=== PATIENT | male | born 1970 | race Caucasian/White ===

== ENCOUNTER 2024-08-08 21:32 | Emergency (ER) | payer MEDICARE, MEDICAID, SELFPAY ==
--- NOTE | ~2024-08-08 | XR_ITS ---
CLINICAL HISTORY: pain 1 view chest x-ray Comparison: None Findings: The lungs are clear. Normal size heart. No acute fracture. IMPRESSION: 1. No acute findings. This document has been electronically signed by: Jaylon Stafford MD on 08/09/2024 02:26:59
[2024-08-08 21:35] VITALS: BP 152/100; PULSE 114; O2SAT 99
[2024-08-08 21:41] VITALS: BP 148/106; PULSE 103; RESP 16; TEMP 36.8; O2SAT 98; BMI 21.1
[2024-08-08 22:25] LABS: MANUAL DIFF FLAG NO
[2024-08-08 22:26] LABS: Basophils Absolute Auto 0.1 X10*3/uL (0.0-0.2); Basophils Percent Auto 1.4 % (0-2); Eosinophils Absolute Auto 0.1 X10*3/uL (0.0-0.4); Hematocrit 31.3 % (42.0-52.0); Hemoglobin 10.4 g/dl (14.0-18.0); Imm Gran Abs Auto 0.03 X10*3/uL (0.00-0.03); Imm Gran Pct Auto 0.5 % (0.0-0.4); Lymphocytes Absolute Auto 1.9 X10*3/uL (1.2-4.9); Lymphocytes Percent Auto 34.2 % (20-40); Mean Corpuscular HGB Conc 33.2 g/dl (31.0-36.0); Mean Corpuscular Hemoglobin 29.3 pg (27.0-33.0); Mean Corpuscular Volume 88.2 fL (80.0-98.0); Mean Platelet Volume 9.4 fL (9.4-12.4); Monocytes Absolute Auto 0.7 X10*3/uL (0.1-1.2); Monocytes Percent Auto 12.5 % (2-11); Neutrophils Absolute Auto 2.8 x10*3/uL (2.0-8.3); Neutrophils Percent Auto 49.4 % (45-73); Platelet Count 226 X10*3/uL (160-400); Red Blood Count 3.55 X10*6/uL (4.60-5.80); White Blood Count 5.6 X10*3/uL (4.8-10.8)
[2024-08-08 22:33] LABS: Prothrombin Time 11.1 SEC (10.9-12.4)
[2024-08-08 22:57] LABS: Alanine Aminotransferase 50 U/L (0-40); Alkaline Phosphatase 107 U/L (39-117); Anion Gap 19 (12-20); Aspartate Amino Transferase 121 U/L (5-37); Bilirubin Total 0.2 mg/dL (0.0-1.0); Blood Urea Nitrogen 15 mg/dL (9-16); Calcium 8.5 mg/dL (8.4-10.2); Carbon Dioxide 20 mmol/L (22-29); Chloride 109 mmol/L (96-108); Creatinine Clr Calc Pharmacy 44.2; Estimated Glomerular Filt Rate 43; Ethanol 437 mg/dL; Glucose Random 123 mg/dL (60-115); Magnesium 1.7 mg/dL (1.6-2.6); Potassium 4.4 mmol/L (3.3-5.1); Sodium 144 mmol/L (135-145); Total Protein 7.6 g/dL (6.5-8.0)
[2024-08-08 23:24] VITALS: BP 144/94; PULSE 129; RESP 18; TEMP 37.4; O2SAT 97
--- NOTE | 2024-08-08 23:26 | MHC.EDTECH ---
patient placed on quality assurance monitor chassis patient currently vomiting
--- NOTE | 2024-08-08 23:46 | ECG_ITS ---
Test Reason : PAIN Blood Pressure : / mmHG Vent. Rate : 108 BPM Atrial Rate : 108 BPM P-R Int : 172 ms QRS Dur : 084 ms QT Int : 346 ms P-R-T Axes : 053 043 061 degrees QTc Int : 463 ms Sinus tachycardia Otherwise normal ECG No previous ECGs available Referred By: Amy Meneses Electronically Signed By:SIMEON LO MD
[2024-08-09] MEDS: ondansetron HCL 4 MG/2 ML VIAL IVPUSH (00:12)
[2024-08-09] MEDS: 0.9 % Sodium Chloride 1,000 ML 999 ML IV (00:12)
[2024-08-09 00:14] LABS: Troponin-I High Sensitivity 3.8 ng/L (<3.5-35.0)
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
[2024-08-09 02:14] VITALS: BP 148/98; PULSE 106; RESP 12; TEMP 37; O2SAT 100
[2024-08-09] MEDS: Acetaminophen 325 MG TABLET 975 MG PO (02:35)
[2024-08-09 02:38] LABS: Troponin-I High Sensitivity 5.3 ng/L (<3.5-35.0)
[2024-08-09 03:39] VITALS: BP 133/99; PULSE 99; RESP 17; TEMP 37.2; O2SAT 98
[2024-08-09 03:44] VITALS: BP 133/99; PULSE 99; RESP 17; TEMP 37.2; O2SAT 98
== END 2024-08-09 03:53 | disposition home or self-care (01) ==
PROVIDERS: Physician Assistant Medical; Emergency Provider Emergency Medicine Emergency Medical Services
DX: S29.9XXA Unspecified injury of thorax, initial encounter (principal); R10.2 Pelvic and perineal pain; F10.129 Alcohol abuse with intoxication, unspecified; Y90.8 Blood alcohol level of 240 mg/100 ml or more; R07.89 Other chest pain; F41.9 Anxiety disorder, unspecified; R00.0 Tachycardia, unspecified; Y04.2XXA Assault by strike against or bumped into by another person, initial encounter; Y93.89 Activity, other specified; Y92.89 Other specified places as the place of occurrence of the external cause; Y99.8 Other external cause status; Z51.81 Encounter for therapeutic drug level monitoring; Z79.899 Other long term (current) drug therapy
CPT/HCPCS: 36415; 71045; 80053; 80307; 82693; 83735; 84484; 85025; 85610; 93005; 96361; 96374; 99284; J2405

== ENCOUNTER → 2024-08-08 23:46 | Outpatient (BNV) | payer MEDICARE, MEDICAID, SELFPAY | PROVIDERS: Emergency Provider Emergency Medicine Emergency Medical Services; Visit Provider Internal Medicine Cardiovascular Disease | DX: R94.31 Abnormal electrocardiogram [ECG] [EKG] (principal) | CPT/HCPCS: 93010 ==

== ENCOUNTER → 2024-08-09 01:57 | Outpatient (BNV) | payer MEDICARE, MEDICAID, SELFPAY | PROVIDERS: Emergency Provider Emergency Medicine Emergency Medical Services; Visit Provider Radiology Diagnostic Radiology | DX: R07.9 Chest pain, unspecified (principal) | CPT/HCPCS: 71045 ==

== ENCOUNTER 2025-02-20 01:07 | Inpatient (IN) | payer MEDICARE, MEDICAID, SELFPAY ==
[2025-02-20] VITALS (10 sets, daily range): BP systolic 96–173; BP diastolic 69–101; PULSE 72–118; RESP 15–18; TEMP 36.2–37.1; O2SAT 94–100; BMI 20.4; BMI 20.9
--- NOTE | 2025-02-20 | ECG_ITS ---
Test Reason : FALL Blood Pressure : */* mmHG Vent. Rate : 60 BPM Atrial Rate : 60 BPM P-R Int : 172 ms QRS Dur : 90 ms QT Int : 460 ms P-R-T Axes : 56 40 46 degrees QTcB Int : 460 ms Normal sinus rhythm Normal ECG When compared with ECG of 09-Aug-2024 00:12, Vent. rate has decreased by 48 bpm Referred By: Generic ED Physician Electronically Signed By: IVONNE HAILE
--- NOTE | ~2025-02-20 | CT_ITS ---
CLINICAL HISTORY: dyspnea, hx DVT CT angiography chest with contrast. 3D Postprocessing. Comparison: None provided Findings: The heart is normal size. RV/LV ratio is normal. The thoracic aorta is normal caliber. No thyroid lesion. No significant mediastinal adenopathy. Suspect a tiny nonocclusive filling defect within the right lower lobe, axial images 100 -102/163 (series 7) Moderate centrilobular emphysema with airway thickening and regions of scarring and/or atelectasis. No effusion. No pneumothorax. No acute osseous finding. Visualized upper abdomen is unremarkable. Impression: There is a tiny nonocclusive filling defect within the right lower lobe consistent with a small pulmonary embolism. Chronicity of this indeterminate. No heart strain. Centrilobular emphysema with airway thickening and regions of scarring and/or atelectasis. This document has been electronically signed by: Dwayne Mercer MD on 02/20/2025 07:15:54
--- NOTE | ~2025-02-20 | US_ITS ---
EXAMINATION: US TRIPLEX LOWER EXTREMITY, RIGHT CLINICAL INFORMATION: Pain, right lower extremity. COMPARISON: None available. TECHNIQUE: Color-flow triplex imaging with spectral analysis and compression Doppler were performed on the right lower extremity. FINDINGS: Respiratory variation, normal compression and augmented flow are present throughout the interrogated right common femoral vein, superficial femoral vein, profunda femoral vein, popliteal vein and midcalf peroneal and posterior tibial venous segments . There is no Ferrell's cyst. US/US venous duplex LE RT IMPRESSION: No acute deep venous thrombosis interrogated veins, right lower extremity. Negative for DVT. Electronically signed by: Nishant Philip MD 02/20/2025 09:54 AM EDT
--- NOTE | ~2025-02-20 | CT_ITS ---
CLINICAL HISTORY: fall on eliquis LOC CT head without contrast Comparison: None Findings: No evidence of acute territorial infarct. Moderate diffuse volume loss is noted. No hydrocephalus. No hemorrhage, mass effect, mass lesion or midline shift. No abnormal extra-axial fluid. No calvarial fracture. Paranasal sinuses and mastoid air cells are clear. Impression: No acute intracranial process. Moderate diffuse volume loss, greater than expected for age. This document has been electronically signed by: Dwayne Mercer MD on 02/20/2025 07:07:05
[2025-02-20 02:02] LABS: Hematocrit 27.4 % (42.0-52.0); Hemoglobin 8.9 g/dl (14.0-18.0); Imm Gran Abs Auto 0.01 X10*3/uL (0.00-0.03); Imm Gran Pct Auto 0.2 % (0.0-0.4); Lymphocytes Absolute Auto 2.9 X10*3/uL (1.2-4.9); MANUAL DIFF FLAG NO; Mean Corpuscular HGB Conc 32.5 g/dl (31.0-36.0); Mean Corpuscular Hemoglobin 31.0 pg (27.0-33.0); Mean Corpuscular Volume 95.5 fL (80.0-98.0); NRBC Abs Auto 0.000 X10*3/uL (0.0-0.012); NRBC Pct Auto 0.0 /100WBC (0.0-0.2); Platelet Count 568 X10*3/uL (160-400); Red Blood Count 2.87 X10*6/uL (4.60-5.80); White Blood Count 6.0 X10*3/uL (4.8-10.8)
[2025-02-20 03:26] LABS: Alanine Aminotransferase 41 U/L (0-40); Albumin Level 3.3 g/dL (3.5-5.0); Alkaline Phosphatase 94 U/L (39-117); Anion Gap 17 (12-20); Aspartate Amino Transferase 106 U/L (5-37); Blood Urea Nitrogen 11 mg/dL (9-16); Calcium 7.9 mg/dL (8.4-10.2); Carbon Dioxide 22 mmol/L (22-29); Chloride 111 mmol/L (96-108); Creatinine Clr Calc Pharmacy 53.7; Estimated Glomerular Filt Rate 57; Magnesium 1.6 mg/dL (1.6-2.6); Potassium 3.9 mmol/L (3.3-5.1); Sodium 146 mmol/L (135-145); Total Protein 6.4 g/dL (6.5-8.0)
[2025-02-20 03:42] LABS: Troponin-I High Sensitivity < 2.7 ng/L (<3.5-35.0)
[2025-02-20 05:59] LABS: INTERNATIONAL NORM RATIO 1.4 (0.9-1.1); Prothrombin Time 16.5 SEC (10.9-12.4)
[2025-02-20] MEDS: iohexoL 350 MG/ML 100 ML INFUS..BTL 65 ML IV (06:09)
[2025-02-20] MEDS: Magnesium Sulfate/H2O 2 GM/50 ML PIGGYBACK IV (06:16)
[2025-02-20] MEDS: Lactated Ringers 1,000 ML 999 ML IV (06:16)
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
--- NOTE | 2025-02-20 07:29 | PC.NURSE ---
Nichole Mtz ([facility]) - [phone]
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
--- NOTE | 2025-02-20 08:56 | PM.IMHP ---
History of Present Illness Date of Service: 02/20/25 Chief Complaint: fall/syncope The patient is a 54 yo M with alcohol abuse and dependence, prior VTE on Eliquis who presents to the ED after he was found down on the ground at home by his daughter. The history is obtained from the ED physician. 54-year-old alcoholic with history of DVT on Eliquis coming in with dizziness and a syncopal episode that occurred at home in the bathroom. Was found down on the ground by his daughter. Found to have a right lower lobe pulmonary embolism on CTA without evidence of heart strain. Pt is seen and examined around 830 AM. He is asleep and not participatory in the interview. He is oriented to self and location but does not answer other questions. Review of Systems Review of Systems: unable to review ROS [facility] Social History Alcohol intake: current Alcohol intake frequency: 3 or more drinks per day Alcohol type: hard liquor Smoked in Last 30 Days: Yes Use of substances other than those prescribed or required for medical reasons: Yes Substance Use Type: Marijuana Advance Directives: No Advance Directives Information Provided: Yes Meds Allergies Allergy/AdvReac Type Severity Reaction Status Date / Time No Known Allergies Allergy Verified 02/20/25 01:32 Active Medications: Current Medications Acetaminophen (Acetaminophen 325 Mg Tablet) 650 mg PO Q6H PRN PRN Reason: Pain, Mild 1-3,fever,headache Calcium Carbonate (Calcium Carbonate 750 Mg Tab.Chew) 750 mg PO Q4H PRN PRN Reason: Heartburn Lactated Ringer's (Lr) 1,000 mls @ 100 mls/hr IVCONT .Q10H [facility] Stop: 02/21/25 04:44 Magnesium Hydroxide (Milk Of Magnesia 30 Ml Oral.Susp) 30 ml PO DAILY PRN PRN Reason: Constipation Melatonin (Melatonin 3 Mg Tablet) 6 mg PO BEDTIME PRN PRN Reason: Insomnia Sodium Chloride (0.9 % Sodium Chloride Flush 3 Ml Syringe) 3 ml IVFLUSH QSHIFT [facility] Home Medications ?Medication ?Instructions ?Recorded ?Confirmed ?Last Taken ?Type acetaminophen 500 mg tablet 1,000 mg PO TID PRN moderate pain 02/20/25 Unknown History apixaban 5 mg tablet (Eliquis) 5 mg PO BID 02/20/25 Unknown History carvedilol 6.25 mg tablet 6.25 mg PO BID 02/20/25 Unknown History gabapentin 600 mg tablet 600 mg PO TID 02/20/25 Unknown History losartan 25 mg tablet 25 mg PO DAILY 02/20/25 Unknown History oxycodone 5 mg tablet 5 mg PO TID PRN severe pain 02/20/25 Unknown History trazodone 100 mg tablet 100 mg PO BEDTIME 02/20/25 Unknown History venlafaxine 75 mg capsule,extended 75 mg PO DAILY 02/20/25 Unknown History release 24 hr Physical Exam Vital Signs and Narrative: Vital Signs: Last Vital Signs Temp 97.5 F 02/20/25 07:40 Pulse 82 02/20/25 07:40 Resp 15 02/20/25 07:40 BP 114/83 02/20/25 07:40 Pulse Ox 98 02/20/25 07:40 O2 Del Method Room Air 02/20/25 07:40 BMI result Body Mass Index 20.4 Const: Other: Constitutional - sleeping, answering questions minimally - knows name and that hes in the hospital Eyes - EOMI Cardiovascular - S1S2, RRR, No edema Respiratory - Normal lung expansion, Normal respiratory effort, No respiratory distress, CTA bilaterally Gastrointestinal - NT / ND; +BS; No rebound or guarding - No CVA tenderness Extremities - RLE cast Musculoskeletal - Normal inspection; RLE cast Skin - Warm/Dry Neurological - unable to fully assess but moving all 4 limbs and oriented to self/location Psychological - unable to assess Results Labs 02/20/25 01:56 02/20/25 02:40 Labs: Laboratory Results - last 24 hr 02/20/25 02/20/25 02/20/25 01:56 02:40 05:38 MCV 95.5 MCH 31.0 MCHC 32.5 RDW 19.7 H Plt Count 568 H D MPV 8.8 L Immature Gran % (Auto) 0.2 Neut % (Auto) 38.7 L Lymph % (Auto) 48.2 H [place] % (Auto) 6.6 Eos % (Auto) 3.8 Baso % (Auto) 2.5 H Lymph # (Auto) 2.9 [place] # (Auto) 0.4 Eos # (Auto) 0.2 Baso # (Auto) 0.2 Abs Immat Gran (auto) 0.01 Absolute Neuts (auto) 2.3 Absolute Nucleated RBC 0.000 Nucleated RBC % (auto) 0.0 PT 16.5 H D INR 1.4 H Anion Gap 17 Estim Creat Clear Calc 53.7 Estimated GFR 57 Random Glucose 95 Calcium 7.9 L D Magnesium 1.6 Total Bilirubin 0.2 AST 106 H ALT 41 H Alkaline Phosphatase 94 Total Protein 6.4 L Albumin 3.3 L Ethyl Alcohol 249 Assessment and Plan (1) Alcohol use disorder: Status: Acute (2) Alcohol intoxication: Status: Acute (3) Pulmonary embolism: Status: Acute Plan 54 yo M with alcohol abuse and dependence, prior PE on eliquis who presents with dizziness/syncope, found on the ground by family. Pt unable / unwilling to provide history currently. Work up in ED showing tiny non-occulusive small PE RLL, alcohol intoxication and withdrawal. 1. Syncope/fall/dizziness possibly secondary to EtOH intox unlikely 2/2 to PE monitor on tele, hydrate, check CPK ambulate once more able/willing 2. RLL PE unclear chronicity on imaging. Unable to confirm history with pt. Attempted to call family -- went unanswered. Will give lovenox 1mg/kg for the time being 3. Alcohol abuse and dependence Presented with +blood alcohol level; scoring 10 on CIWA Given ativan -- pt now resting comfortably monitor with CIWA and likely start phenobarb (currently pt sedated, so will hold) 4. HyperNa mild, ivf recheck labs tomorrow Presumed full code DVT pptx - Lovenox Quality Stroke Does the patient have a stroke diagnosis?: No VTE Prior VTE?: No VTE Risk Level:: Medical - moderate - high VTE Device Contraindication: N/A - Device Ordered VTE Drug Contraindication: N/A - Med Ordered
--- NOTE | 2025-02-20 09:06 | PC.NURSE ---
ultrasound being completed at this time. patient remains sleepy s/p medication administration by previous RN. no apparent respiratory distress. on RA w/o difficulty. no sob/wob noted. respirations even/unlabored. plan of care ongoing.
[2025-02-20] MEDS: Lactated Ringers 1,000 ML 100 ML IVCONT ×2 (09:25→19:34)
--- NOTE | 2025-02-20 14:36 | PHA.MEDREC ---
Addendum entered by Geeta Knight linda 02/20/25 15:07: Med rec was updated. Atorvastatin has not filled since 08/06/25, pt states he is no longer taking. Pt has no claims on albuterol, and pt states he is not on, this was removed from the med rec. Naltrexone was also removed by the med rec as pt states he is not on. Addendum entered by Clovis Lopez 02/20/25 14:55: Spoke with pt, who was very pleasant and was able to confirm what he is taking for at home medications at this time. Original Note: Pharmacy Consult ? Medication Reconciliation Pharmacy has completed the medication reconciliation. Spoke with daughter, Nichole, to confirm medications. She states she helps manage her father's medication.
--- NOTE | 2025-02-20 15:29 | MHC.CM.PN ---
CM received a phone call re: pt. care from Sari Larkin, , she is a medical SW from [facility], who has been providing services to this pt. in his home. She informed CM that she was working on helping pt. to find a more supportive living environment, and that pt. was in agreement to moving, and they thought that he might require LTC in a SNF. She said that he has had multiple hosp. stays, and that the home is a second floor apt. with his dtr and her family. She will fax HCP here. CM will follow up with pt. and HCP and assist in making DCP.
[2025-02-20] MEDS: PHENobarbitaL sodium 130 MG/ML IM ONCE 194 MG IM (16:53)
[2025-02-20] MEDS: 0.9 % Sodium Chloride Flush 3 ML SYRINGE IVFLUSH ×2 (16:53→23:39)
[2025-02-20] MEDS: PHENobarbitaL sodium 130 MG/ML VIAL IM Q3Hx2 145 MG IM ×2 (20:03→23:28)
[2025-02-21 03:53] VITALS: BP 164/98; PULSE 76; RESP 18; TEMP 37.1; O2SAT 100
[2025-02-21 06:33] LABS: Hematocrit 25.9 % (42.0-52.0); Hemoglobin 8.4 g/dl (14.0-18.0); Mean Corpuscular HGB Conc 32.4 g/dl (31.0-36.0); Mean Corpuscular Hemoglobin 30.4 pg (27.0-33.0); Mean Corpuscular Volume 93.8 fL (80.0-98.0); NRBC Abs Auto 0.000 X10*3/uL (0.0-0.012); NRBC Pct Auto 0.0 /100WBC (0.0-0.2); Platelet Count 452 X10*3/uL (160-400); Red Blood Count 2.76 X10*6/uL (4.60-5.80); White Blood Count 7.1 X10*3/uL (4.8-10.8)
--- NOTE | 2025-02-21 06:41 | PM.EVENT ---
Event Note Date of Service: 02/21/25 Event Note: Nurse reported bright red blood in stools this a.m.. Patient complaining of dizziness when ambulating. Likely orthostatic presyncope. Will order crystalloid resuscitation. Will also order IV Protonix and keep patient NPO. Consulting Gastroenterology. Hold aspirin and Eliquis Time Spent With Patient Time: Total time managing care of this patient today ____ minutes.
[2025-02-21 06:46] LABS: Alanine Aminotransferase 34 U/L (0-40); Albumin Level 2.9 g/dL (3.5-5.0); Alkaline Phosphatase 90 U/L (39-117); Anion Gap 12 (12-20); Aspartate Amino Transferase 76 U/L (5-37); Blood Urea Nitrogen 8 mg/dL (9-16); Calcium 8.0 mg/dL (8.4-10.2); Carbon Dioxide 23 mmol/L (22-29); Chloride 109 mmol/L (96-108); Creatinine Clr Calc Pharmacy 73.7; Estimated Glomerular Filt Rate > 60; Potassium 4.1 mmol/L (3.3-5.1); Sodium 140 mmol/L (135-145); Total Protein 5.8 g/dL (6.5-8.0)
[2025-02-21] MEDS: Lactated Ringers 1,000 ML 999 ML IV (07:26)
[2025-02-21 08:00] VITALS: BP 150/88; PULSE 83; RESP 14; TEMP 36.8; O2SAT 100
[2025-02-21] MEDS: Venlafaxine HCl ER 75 MG CAP.ER.24H PO (08:57)
[2025-02-21] MEDS: 0.9 % Sodium Chloride Flush 3 ML SYRINGE IVFLUSH ×2 (08:59→16:08)
--- NOTE | 2025-02-21 10:55 | HO.PM.IMPN ---
Subjective Subjective Date of Service: 02/21/25 Interval History: no further bleed Physical Exam Vital Signs: Vital Signs: Last Vital Signs Temp 98.2 F 02/21/25 08:00 Pulse 83 02/21/25 08:00 Resp 14 02/21/25 08:00 BP 150/88 H 02/21/25 08:00 Pulse Ox 100 02/21/25 08:00 O2 Del Method Room Air 02/21/25 08:00 BMI result Body Mass Index 20.9 General: AO X 3, no acute distress Resp: CTA bilateral, no accessory muscles used CVS: S1,S2,RRR GI: soft, non tender, non distended Neuro: motor grossly intact, alert Psych: appropriate affect, appropriate insight Objective Data Active Medications Acetaminophen (Acetaminophen 325 Mg Tablet) 650 mg PO Q6H PRN PRN Reason: Pain, Mild 1-3,fever,headache Last Admin: 02/21/25 05:40 Dose: 650 mg Documented By: ZNAA Calcium Carbonate (Calcium Carbonate 750 Mg Tab.Chew) 750 mg PO Q4H PRN PRN Reason: Heartburn Carvedilol (Carvedilol 6.25 Mg Tablet) 6.25 mg PO BID [facility]; Protocol Last Admin: 02/21/25 08:57 Dose: 6.25 mg Documented By: MYRNA Cyanocobalamin (Cyanocobalamin (Vitamin B-12) 1,000 Mcg Tablet) 1,000 mcg PO DAILY [facility] Last Admin: 02/21/25 08:59 Dose: Not Given Documented By: MYRNA Non-Admin Reason: NPO Folic Acid (Folic Acid 1 Mg Tablet) 1 mg PO DAILY [facility] Last Admin: 02/21/25 09:00 Dose: Not Given Documented By: MYRNA Non-Admin Reason: NPO Gabapentin (Gabapentin 600 Mg Tablet) 600 mg PO TID [facility] Last Admin: 02/21/25 08:56 Dose: 600 mg Documented By: MYRNA Losartan Potassium (Losartan Potassium 25 Mg Tablet) 25 mg PO DAILY [facility]; Protocol Last Admin: 02/21/25 08:56 Dose: 25 mg Documented By: MYRNA Magnesium Hydroxide (Milk Of Magnesia 30 Ml Oral.Susp) 30 ml PO DAILY PRN PRN Reason: Constipation Melatonin (Melatonin 3 Mg Tablet) 6 mg PO BEDTIME PRN PRN Reason: Insomnia Pharmacy Consult (Consult Rx Etoh Phenob Im/Po) 1 each MISCELLANE ONCE PRN; Protocol PRN Reason: Consult order Phenobarbital (Phenobarbital 15 Mg Tablet) 45 mg PO BID [facility] Stop: 02/22/25 21:01 Last Admin: 02/21/25 08:57 Dose: 45 mg Documented By: MYRNA Phenobarbital (Phenobarbital 30 Mg Tablet) 30 mg PO BID [facility] Stop: 02/24/25 21:01 Phenobarbital (Phenobarbital 15 Mg Tablet) 15 mg PO DAILY [facility] Stop: 02/26/25 09:01 Pyridoxine HCl (Pyridoxine Hcl (Vitamin B6) 50 Mg Tablet) 50 mg PO DAILY [facility] Last Admin: 02/21/25 09:00 Dose: Not Given Documented By: MYRNA Non-Admin Reason: NPO Sodium Chloride (0.9 % Sodium Chloride Flush 3 Ml Syringe) 3 ml IVFLUSH QSHIFT [facility] Last Admin: 02/21/25 08:59 Dose: 3 ml Documented By: MYRNA Thiamine HCl (Thiamine Hcl 100 Mg Tablet) 100 mg PO BID [facility] Last Admin: 02/21/25 09:00 Dose: Not Given Documented By: MYRNA Non-Admin Reason: NPO Trazodone HCl (Trazodone Hcl 100 Mg Tablet) 100 mg PO BEDTIME [facility] Last Admin: 02/20/25 19:46 Dose: 100 mg Documented By: ZANA Venlafaxine HCl (Venlafaxine Hcl Er 75 Mg Cap.Er.24h) 75 mg PO DAILY [facility] Last Admin: 02/21/25 08:57 Dose: 75 mg Documented By: MYRNA Labs 02/21/25 06:22 02/21/25 06:22 Labs: Laboratory Results - last 24 hr 02/21/25 06:22 MCV 93.8 MCH 30.4 MCHC 32.4 RDW 19.5 H Plt Count 452 H MPV 8.9 L Absolute Nucleated RBC 0.000 Nucleated RBC % (auto) 0.0 Anion Gap 12 Estim Creat Clear Calc 73.7 Estimated GFR > 60 Random Glucose 93 Calcium 8.0 L Total Bilirubin 0.4 AST 76 H ALT 34 Alkaline Phosphatase 90 Total Protein 5.8 L Albumin 2.9 L Assessment and Plan (1) Alcohol use disorder: Status: Acute Plan 54M PMH etoh dependence, vte on eliquis, prsented with fall, found to be in withdrawal, and new small PE, now complicated by BRBPR Syncope due to alcohol dependence with withdrawal Continue phenobarb, CIWA Right lower lobe pulmonary embolism, recurrent Holding anticoagulation due to GI bleed Bright red blood per rectum Hemoglobin stable, follow up GI, holding Eliquis Mild acute hypernatremia Resolved DVT prophylaxis-mechanical due to bright red blood per rectum Full code reason for continued hospitalization:monitor bleed Quality Stroke Does the patient have a stroke diagnosis?: No VTE Prior VTE?: No VTE Risk Level:: Medical - moderate - high VTE Device Contraindication: N/A - Device Ordered VTE Drug Contraindication: N/A - Med Ordered
[2025-02-21] MEDS: oxyCODONE HCl Immed Release 5 MG TABLET PO ×2 (11:31→17:52)
[2025-02-21 11:36] VITALS: BP 144/92; PULSE 82; RESP 18; TEMP 36.6; O2SAT 100
--- NOTE | 2025-02-21 11:39 | MHC.CM.PN ---
IMM 02/21/25, Pt. lives with his dtr and her young children, he is active with home care. PCP is Amarilis Javier MD in [place]. For DME, he has a walker and a cane. Pt. said he has been falling a lot, and then when he takes a shower, he often becomes dizzy. His understanding of DCP is STR and maybe stay LTC in SNF. CM to follow for DC needs.
--- NOTE | 2025-02-21 12:56 | P.CNGI_ITS ---
History of Present Illness Data of Consult Service Date: 02/21/25 Primary Care Provider: Unknown Physician HPI Reason for consult: rectal bleeding 54 yo M with alcohol abuse and dependence, prior VTE on Eliquis with questionable compliance, who I am seeing for assessment for rectal bleeding. Patient admitted after being found down at home by family. He thinks he may have had a alcohol related withdrawal seizure as he was incontinent and has had this before. he has noted on and off rectal bleeding including black colored stools. he denies nausea and vomiting. he has been drinking whiskey most days. denies taking nsaids. Overnight he had fresh rectal bleeding and HGB went from 9--. 8.4 g/dl, --had been 10 g/dl last Jul 2024. Review of Systems 2 Review of Systems: Constitutional : No Weight loss, No Fever, No Chills ENT/Mouth : No sore throat, No Rhinorrhea Eyes: No Swelling, No Redness Cardiovascular : No Chest Pain, No SOB, No Edema Respiratory : No Cough, No Sputum, No Wheezing Gastrointestinal : see HPI Genitourinary : NO Dysuria, No Urinary Frequency, No Hematuria, No Urgency Musculoskeletal : no joint pain, No Myalgias, No Joint Swelling Skin : No Skin Lesions, No rash Neuro : No Weakness, No Numbness, No Dizziness, No Headache Psych : No Anxiety/Panic, No Depression Heme/Lymph: No Bruising, No Lymphadenopathy Endocrine : No Polyuria, No Polydipsia All other systems reviewed and are negative. [facility] Past Medical History Medical History (Updated 02/22/25 @ 10:43 by Madeleine Kumari MD) Atherosclerotic cardiovascular disease Family History Pertinent family history: no Fh of CRC, ulcers Social History Social History Household Members: Family Housing: House Do you presently have visiting nurse or other home services: Yes Alcohol intake: current Alcohol intake frequency: 3 or more drinks per day Alcohol type: hard liquor Patient Tobacco Use Status: Current someday Tobacco user Tobacco use type: Cigarette Years Smoked: 40 years Second Hand Smoke Exposure: No Substance Use Type: Marijuana service: Yes Meds Allergies Allergy/AdvReac Type Severity Reaction Status Date / Time No Known Allergies Allergy Verified 02/20/25 01:32 Active Medications: Current Medications Acetaminophen (Acetaminophen 325 Mg Tablet) 650 mg PO Q6H PRN PRN Reason: Pain, Mild 1-3,fever,headache Last Admin: 02/21/25 05:40 Dose: 650 mg Calcium Carbonate (Calcium Carbonate 750 Mg Tab.Chew) 750 mg PO Q4H PRN PRN Reason: Heartburn Carvedilol (Carvedilol 6.25 Mg Tablet) 6.25 mg PO BID [facility]; Protocol Last Admin: 02/21/25 08:57 Dose: 6.25 mg Cyanocobalamin (Cyanocobalamin (Vitamin B-12) 1,000 Mcg Tablet) 1,000 mcg PO DAILY [facility] Last Admin: 02/21/25 08:59 Dose: Not Given Folic Acid (Folic Acid 1 Mg Tablet) 1 mg PO DAILY [facility] Last Admin: 02/21/25 09:00 Dose: Not Given Gabapentin (Gabapentin 600 Mg Tablet) 600 mg PO TID [facility] Last Admin: 02/21/25 08:56 Dose: 600 mg Losartan Potassium (Losartan Potassium 25 Mg Tablet) 25 mg PO DAILY [facility]; Protocol Last Admin: 02/21/25 08:56 Dose: 25 mg Magnesium Hydroxide (Milk Of Magnesia 30 Ml Oral.Susp) 30 ml PO DAILY PRN PRN Reason: Constipation Melatonin (Melatonin 3 Mg Tablet) 6 mg PO BEDTIME PRN PRN Reason: Insomnia Pharmacy Consult (Consult Rx Etoh Phenob Im/Po) 1 each MISCELLANE ONCE PRN; Protocol PRN Reason: Consult order Phenobarbital (Phenobarbital 15 Mg Tablet) 45 mg PO BID [facility] Stop: 02/22/25 21:01 Last Admin: 02/21/25 08:57 Dose: 45 mg Phenobarbital (Phenobarbital 30 Mg Tablet) 30 mg PO BID [facility] Stop: 02/24/25 21:01 Phenobarbital (Phenobarbital 15 Mg Tablet) 15 mg PO DAILY [facility] Stop: 02/26/25 09:01 Pyridoxine HCl (Pyridoxine Hcl (Vitamin B6) 50 Mg Tablet) 50 mg PO DAILY [facility] Last Admin: 02/21/25 09:00 Dose: Not Given Sodium Chloride (0.9 % Sodium Chloride Flush 3 Ml Syringe) 3 ml IVFLUSH QSHIFT [facility] Last Admin: 02/21/25 08:59 Dose: 3 ml Thiamine HCl (Thiamine Hcl 100 Mg Tablet) 100 mg PO BID [facility] Last Admin: 02/21/25 09:00 Dose: Not Given Trazodone HCl (Trazodone Hcl 100 Mg Tablet) 100 mg PO BEDTIME [facility] Last Admin: 02/20/25 19:46 Dose: 100 mg Venlafaxine HCl (Venlafaxine Hcl Er 75 Mg Cap.Er.24h) 75 mg PO DAILY [facility] Last Admin: 02/21/25 08:57 Dose: 75 mg Home Medications ?Medication ?Instructions ?Recorded ?Confirmed ?Last Taken ?Type acetaminophen 500 mg tablet 1,000 mg PO TID PRN modera te pain 02/20/25 02/20/25 Unknown History apixaban 5 mg tablet (Eliquis) 5 mg PO BID 02/20/2502/19/25 History aspirin 81 mg tablet,delayed 81 mg PO DAILY 02/20/25 0 02/20/25 02/19/25 History release carvedilol 6.25 mg tablet 6.25 mg PO BID 02/20/2502/0602/19/25 History cyanocobalamin (vitamin B-12) 1,000 mcg PO DAILY 02/2002/20/25 Unknown History 1,000 mcg tablet folic acid 1 mg tablet 1 mg PO DAILY 02/20/2502/2002/19/25 History gabapentin 600 mg tablet 600 mg PO TID 02/20/2502/2002/19/25 History losartan 25 mg tablet 25 mg PO DAILY 02/20/2502/0602/19/25 History pyridoxine (vitamin B6) 50 mg 50 mg PO DAILY 02/20/25 02/20/25 Unknown History tablet thiamine HCl (vitamin B1) 100 mg 100 mg PO BID 5 02/20/25 02/19/25 History tablet trazodone 100 mg tablet 100 mg PO BEDTIME 02/20/25 0 02/20/25 02/19/25 History venlafaxine 75 mg capsule,extended 75 mg PO DAILY 02/0602/20/25 02/19/25 History release 24 hr Physical Exam 2 Vital Signs: Vital Signs: Last Vital Signs Temp 97.8 F 02/21/25 11:36 Pulse 82 02/21/25 11:36 Resp 18 02/21/25 11:36 BP 144/92 H 02/21/25 11:36 Pulse Ox 100 02/21/25 11:36 O2 Del Method Room Air 02/21/25 11:36 BMI result Body Mass Index 20.9 EXAM: GENERAL: The patient is well developed and nontoxic. VITAL SIGNS:see workflow HEENT: Nonicteric sclerae, PERRLA, EOMI. Oropharynx clear. Moist mucous membranes. Conjunctivae appear well perfused. No thyroid mass. CHEST: Chest wall is nontender. HEART: Regular rate and rhythm without murmurs. LUNGS: Clear to auscultation bilaterally. ABDOMEN: Soft, positive bowel sounds, nontender, no organomegaly.no flank tenderness SKIN: No rash, no excessive bruising, petechiae, or purpura. NEUROLOGIC: Cranial nerves II-XII intact without motor/sensory deficit. Psych: normal affect Results Labs 02/22/25 06:57 02/22/25 06:57 Labs: Short CBC 02/21/25 Range/Units 06:22 WBC 7.1 (4.8-10.8) X10*3/uL Hgb 8.4 L (14.0-18.0) g/dl Hct 25.9 L (42.0-52.0) % Plt Count 452 H (160-400) X10*3/uL BMP 02/21/25 06:22 Sodium 140 Potassium 4.1 Chloride 109 H Carbon Dioxide 23 BUN 8 L Creatinine 0.98 Calcium 8.0 L Liver Function 02/21/25 Range/Units 06:22 Total Bilirubin 0.4 (0.0-1.0) mg/dL AST 76 H (5-37) U/L ALT 34 (0-40) U/L Alkaline Phosphatase 90 (39-117) U/L Albumin 2.9 L (3.5-5.0) g/dL Assessment and Plan (1) Acute GI bleeding: Status: Acute Plan 1/ Acute blood loss anemia, mayeb due to PUD with rpaid transit, right sided bleeding, hemorrhoid, or mass PLAN: /1 - cont with PPI 2/ HGB for around 8-9 g/dl 3/ EGD and colo for further assesssment Procedures Date of Service Date of Service: 02/22/25
--- NOTE | 2025-02-21 13:07 | HO.ANESPROP2 ---
HPI - Anesthesia Eval Consult details Narrative: 54 yr old male for upper endoscopy, colonoscopy. Acute ETOH intoxication: 10-15 Fireball whiskey shots daily, ?on naltrexone. Recent chronic dizziness, vomiting with eating & drinking; [facility] [place] facial droop, paresthesias 11/2024, brain MRI neg for acute pathology, seen by neurology. Occasional SOB with left sided chest pains. Prior VTE, on eliquis new small PE on CT angio chest, on eliquis (on hold) 2/2 BRBPR. Anemia: H/H 8.4/25.9 H/O V tach: missed recent cardiology appt. CHF: Follows with [facility] [place], EF 45-50% on recent echo, hypokinesis of basal inferior and basal inferolateral waters, Grade I diastolic dysfunction. CAD/NSTEMI: Cardiac cath 04/2023, s/p drug-eluting stent for severe ostial RCA stenosis. PAD: follows with [facility], s/p embolectomy, thrombectomy with left femoral cutdown. PMF Active Problems Active Problems: All Active Problems Alcohol intoxication (Acute) Mild protein malnutrition (Acute) Hypocalcemia (Acute) Hypomagnesemia (Acute) Thrombocytosis (Acute) Alcohol use disorder (Acute) On continuous oral anticoagulation (Acute) Pulmonary embolism (Acute) Syncope (Acute) Past Medical History Medical History (Updated 02/22/25 @ 10:43 by Madeleine Kumari MD) Atherosclerotic cardiovascular disease Functional capacity: independent ambulation Family History Family history of problems with anesthesia: No Surgical History History of Problems with Anesthesia: No Social History Social History Household Members: Family Housing: House Are you a primary post acute care nurse to a significant other at home: No Do you presently have visiting nurse or other home services: No Alcohol intake: current Alcohol intake frequency: does not drink Alcohol type: hard liquor Patient Tobacco Use Status: Never used Tobacco Tobacco use type: Cigarette Years Smoked: 40 years Second Hand Smoke Exposure: No Substance Use Type: Marijuana service: Yes Meds Allergies Allergy/AdvReac Type Severity Reaction Status Date / Time No Known Allergies Allergy Verified 02/20/25 01:32 Active Medications: Current Medications Acetaminophen (Acetaminophen 325 Mg Tablet) 650 mg PO Q6H PRN PRN Reason: Pain, Mild 1-3,fever,headache Last Admin: 02/21/25 05:40 Dose: 650 mg Calcium Carbonate (Calcium Carbonate 750 Mg Tab.Chew) 750 mg PO Q4H PRN PRN Reason: Heartburn Carvedilol (Carvedilol 6.25 Mg Tablet) 6.25 mg PO BID [facility]; Protocol Last Admin: 02/21/25 08:57 Dose: 6.25 mg Cyanocobalamin (Cyanocobalamin (Vitamin B-12) 1,000 Mcg Tablet) 1,000 mcg PO DAILY [facility] Last Admin: 02/21/25 08:59 Dose: Not Given Folic Acid (Folic Acid 1 Mg Tablet) 1 mg PO DAILY [facility] Last Admin: 02/21/25 09:00 Dose: Not Given Gabapentin (Gabapentin 600 Mg Tablet) 600 mg PO TID [facility] Last Admin: 02/21/25 08:56 Dose: 600 mg Losartan Potassium (Losartan Potassium 25 Mg Tablet) 25 mg PO DAILY [facility]; Protocol Last Admin: 02/21/25 08:56 Dose: 25 mg Magnesium Hydroxide (Milk Of Magnesia 30 Ml Oral.Susp) 30 ml PO DAILY PRN PRN Reason: Constipation Melatonin (Melatonin 3 Mg Tablet) 6 mg PO BEDTIME PRN PRN Reason: Insomnia Pharmacy Consult (Consult Rx Etoh Phenob Im/Po) 1 each MISCELLANE ONCE PRN; Protocol PRN Reason: Consult order Phenobarbital (Phenobarbital 15 Mg Tablet) 45 mg PO BID [facility] Stop: 02/22/25 21:01 Last Admin: 02/21/25 08:57 Dose: 45 mg Phenobarbital (Phenobarbital 30 Mg Tablet) 30 mg PO BID [facility] Stop: 02/24/25 21:01 Phenobarbital (Phenobarbital 15 Mg Tablet) 15 mg PO DAILY [facility] Stop: 02/26/25 09:01 Pyridoxine HCl (Pyridoxine Hcl (Vitamin B6) 50 Mg Tablet) 50 mg PO DAILY [facility] Last Admin: 02/21/25 09:00 Dose: Not Given Sodium Chloride (0.9 % Sodium Chloride Flush 3 Ml Syringe) 3 ml IVFLUSH QSHIFT [facility] Last Admin: 02/21/25 08:59 Dose: 3 ml Thiamine HCl (Thiamine Hcl 100 Mg Tablet) 100 mg PO BID [facility] Last Admin: 02/21/25 09:00 Dose: Not Given Trazodone HCl (Trazodone Hcl 100 Mg Tablet) 100 mg PO BEDTIME [facility] Last Admin: 02/20/25 19:46 Dose: 100 mg Venlafaxine HCl (Venlafaxine Hcl Er 75 Mg Cap.Er.24h) 75 mg PO DAILY [facility] Last Admin: 02/21/25 08:57 Dose: 75 mg Home Medications ?Medication ?Instructions ?Recorded ?Confirmed ?Last Taken ?Type acetaminophen 500 mg tablet 1,000 mg PO TID PRN moderate pain 02/20/25 02/20/25 Unknown History apixaban 5 mg tablet (Eliquis) 5 mg PO BID 02/20/25 02/20/25 02/19/25 History aspirin 81 mg tablet,delayed 81 mg PO DAILY 02/20/25 02/20/25 02/19/25 History release carvedilol 6.25 mg tablet 6.25 mg PO BID 02/20/25 02/20/25 02/19/25 History cyanocobalamin (vitamin B-12) 1,000 mcg PO DAILY 02/20/25 02/20/25 Unknown History 1,000 mcg tablet folic acid 1 mg tablet 1 mg PO DAILY 02/20/25 02/20/25 02/19/25 History gabapentin 600 mg tablet 600 mg PO TID 02/20/25 02/20/25 02/19/25 History losartan 25 mg tablet 25 mg PO DAILY 02/20/25 02/20/25 02/19/25 History pyridoxine (vitamin B6) 50 mg 50 mg PO DAILY 02/20/25 02/20/25 Unknown History tablet thiamine HCl (vitamin B1) 100 mg 100 mg PO BID 02/20/25 02/20/25 02/19/25 History tablet trazodone 100 mg tablet 100 mg PO BEDTIME 02/20/25 02/20/25 02/19/25 History venlafaxine 75 mg capsule,extended 75 mg PO DAILY 02/20/25 02/20/25 02/19/25 History release 24 hr Exam Height,Weight and Vital Signs: Height 5 ft 7 in Weight 60.5 kg Last Vital Signs Temp 97.8 F 02/21/25 11:36 Pulse 82 02/21/25 11:36 Resp 18 02/21/25 11:36 BP 144/92 H 02/21/25 11:36 Pulse Ox 100 02/21/25 11:36 O2 Del Method Room Air 02/21/25 11:36 Pertinent Lab Results Pertinent Lab Results: Laboratory Tests 02/20/25 02/20/25 02/20/25 01:56 02:40 05:38 WBC 6.0 RBC 2.87 L Hgb 8.9 L Hct 27.4 L MCV 95.5 MCH 31.0 MCHC 32.5 RDW 19.7 H Plt Count 568 H D MPV 8.8 L Immature Gran % (Auto) 0.2 Neut % (Auto) 38.7 L Lymph % (Auto) 48.2 H [place] % (Auto) 6.6 Eos % (Auto) 3.8 Baso % (Auto) 2.5 H Lymph # (Auto) 2.9 [place] # (Auto) 0.4 Eos # (Auto) 0.2 Baso # (Auto) 0.2 Abs Immat Gran (auto) 0.01 Absolute Neuts (auto) 2.3 Absolute Nucleated RBC 0.000 Nucleated RBC % (auto) 0.0 PT 16.5 H D INR 1.4 H Sodium 146 H Potassium 3.9 Chloride 111 H Carbon Dioxide 22 Anion Gap 17 BUN 11 Creatinine 1.31 Estim Creat Clear Calc 53.7 Estimated GFR 57 Random Glucose 95 Calcium 7.9 L D Magnesium 1.6 Total Bilirubin 0.2 AST 106 H ALT 41 H Alkaline Phosphatase 94 Total Creatine Kinase 89 Troponin I High Sens < 2.7 Total Protein 6.4 L Albumin 3.3 L Ethyl Alcohol 249 02/21/25 06:22 WBC 7.1 RBC 2.76 L Hgb 8.4 L Hct 25.9 L MCV 93.8 MCH 30.4 MCHC 32.4 RDW 19.5 H Plt Count 452 H MPV 8.9 L Immature Gran % (Auto) Neut % (Auto) Lymph % (Auto) [place] % (Auto) Eos % (Auto) Baso % (Auto) Lymph # (Auto) [place] # (Auto) Eos # (Auto) Baso # (Auto) Abs Immat Gran (auto) Absolute Neuts (auto) Absolute Nucleated RBC 0.000 Nucleated RBC % (auto) 0.0 PT INR Sodium 140 Potassium 4.1 Chloride 109 H Carbon Dioxide 23 Anion Gap 12 BUN 8 L Creatinine 0.98 Estim Creat Clear Calc 73.7 Estimated GFR > 60 Random Glucose 93 Calcium 8.0 L Magnesium Total Bilirubin 0.4 AST 76 H ALT 34 Alkaline Phosphatase 90 Total Creatine Kinase Troponin I High Sens Total Protein 5.8 L Albumin 2.9 L Ethyl Alcohol Narrative Narrative: EKG 02/20/25 Vent. Rate : 60 BPM Atrial Rate : 60 BPM P-R Int : 172 ms QRS Dur : 90 ms QT Int : 460 ms P-R-T Axes : 56 40 46 degrees QTcB Int : 460 ms Normal sinus rhythm Normal ECG When compared with ECG of 09-Aug-2024 00:12, Vent. rate has decreased by 48 bpm Airway Mallampati Class: III TM Dist: >3cm Neck ROM: Full Loose/Missing/Broken Teeth: Yes, Upper (molars) and Lower (molars) Heart: RRR Lungs: CTAB Assessment and Plan Final Anesthetic Review Family History of Problems with Anesthesia: No History of Problems with Anesthesia: No
--- NOTE | 2025-02-21 14:19 | HO.ADDICTPRO ---
Subjective Subjective Date of Service: 02/21/25 Reason For Visit: syncope alcohol withdrawal seizure Interim History: Patient is a 54 year old male with history of AUD and DVT. [place] [facility] [place] after he was found down on the floor at home. In ED, found to have PE, and medically admitted; shortly after developed alcohol withdrawal sx and started on phenobarbital taper. Patient seen in room 486. He is awake, alert, pleasant and engaged in interview. Reporting that withdrawal sx have much improved since time of admission. He has no recollection of what occurred prior to coming to ED. Reports long standing history of AUD, started drinking with regularity at age 14. Currently drinking approx 10 shots of fireball daily,. Reports previous medical admissions related to alcohol withdrawal, 2 at [facility]. One treatment admission in the , which resulted in almost 2 years of abstaining from alcohol Sleep poor at home Appetite is minimal, however he takes multivitamin and Bcomplex Discussed how alcohol is impacting overall health--including underlying chronic conditions. Very mild tremor, no other withdrawal sx reported or observed rectal bleeding overnight--GI consult per patient he may be having a colonoscopy tomorrow (02/22) Review of Systems Acute medical concerns: Yes Review of Systems Constitutional: Reports as per HPI Musculoskeletal: Reports arthralgias and Reports muscle weakness Mental Status Exam Mental Status Exam Level of Consciousness: Awake, Appropriate and Alert Patient Behavior: Appropriate and Talkative Affect Description: Calm and Appropriate Speech Pattern: Clear Hallucinations: None Thought Process: Intact Thought Content: positive for Intact Judgement: Fair Diagnostics Vital Signs (24Hr): Vital Signs - 24 hr 02/20/25 15:52 02/20/25 19:03 02/20/25 23:19 Temperature 98.1 F 97.2 F 98.8 F Pulse Rate 105 H 109 H 88 Respiratory Rate 18 18 16 Blood Pressure 129/80 138/88 137/89 Pulse Oximetry 100 97 95 Oxygen Delivery Method Room Air Room Air Room Air 02/21/25 03:53 02/21/25 08:00 02/21/25 11:36 Temperature 98.8 F 98.2 F 97.8 F Pulse Rate 76 83 82 Respiratory Rate 18 14 18 Blood Pressure 164/98 H 150/88 H 144/92 H Pulse Oximetry 100 100 100 Oxygen Delivery Method Room Air Room Air Room Air BMI result Body Mass Index 20.9 Labs 02/21/25 06:22 02/21/25 06:22 Labs: Laboratory Results - last 48 hr 02/20/25 02/20/25 02/20/25 01:56 02:40 05:38 WBC 6.0 RBC 2.87 L Hgb 8.9 L Hct 27.4 L MCV 95.5 MCH 31.0 MCHC 32.5 RDW 19.7 H Plt Count 568 H D MPV 8.8 L Immature Gran % (Auto) 0.2 Neut % (Auto) 38.7 L Lymph % (Auto) 48.2 H [place] % (Auto) 6.6 Eos % (Auto) 3.8 Baso % (Auto) 2.5 H Lymph # (Auto) 2.9 [place] # (Auto) 0.4 Eos # (Auto) 0.2 Baso # (Auto) 0.2 Abs Immat Gran (auto) 0.01 Absolute Neuts (auto) 2.3 Absolute Nucleated RBC 0.000 Nucleated RBC % (auto) 0.0 PT 16.5 H D INR 1.4 H Sodium 146 H Potassium 3.9 Chloride 111 H Carbon Dioxide 22 Anion Gap 17 BUN 11 Creatinine 1.31 Estim Creat Clear Calc 53.7 Estimated GFR 57 Random Glucose 95 Calcium 7.9 L D Magnesium 1.6 Total Bilirubin 0.2 AST 106 H ALT 41 H Alkaline Phosphatase 94 Total Creatine Kinase 89 Troponin I High Sens < 2.7 Total Protein 6.4 L Albumin 3.3 L Ethyl Alcohol 249 02/21/25 06:22 WBC 7.1 RBC 2.76 L Hgb 8.4 L Hct 25.9 L MCV 93.8 MCH 30.4 MCHC 32.4 RDW 19.5 H Plt Count 452 H MPV 8.9 L Immature Gran % (Auto) Neut % (Auto) Lymph % (Auto) [place] % (Auto) Eos % (Auto) Baso % (Auto) Lymph # (Auto) [place] # (Auto) Eos # (Auto) Baso # (Auto) Abs Immat Gran (auto) Absolute Neuts (auto) Absolute Nucleated RBC 0.000 Nucleated RBC % (auto) 0.0 PT INR Sodium 140 Potassium 4.1 Chloride 109 H Carbon Dioxide 23 Anion Gap 12 BUN 8 L Creatinine 0.98 Estim Creat Clear Calc 73.7 Estimated GFR > 60 Random Glucose 93 Calcium 8.0 L Magnesium Total Bilirubin 0.4 AST 76 H ALT 34 Alkaline Phosphatase 90 Total Creatine Kinase Troponin I High Sens Total Protein 5.8 L Albumin 2.9 L Ethyl Alcohol Imaging Radiology Impressions: ITS Impressions Venous Duplex 02/20/25 08:57 IMPRESSION: No acute deep venous thrombosis interrogated veins, right lower extremity. Negative for DVT. Electronically signed by: Nishant Philip MD 02/20/2025 09:54 AM EDT RP Medications Medications Current Medications Acetaminophen (Acetaminophen 325 Mg Tablet) 650 mg PO Q6H PRN PRN Reason: Pain, Mild 1-3,fever,headache Last Admin: 02/21/25 05:40 Dose: 650 mg Calcium Carbonate (Calcium Carbonate 750 Mg Tab.Chew) 750 mg PO Q4H PRN PRN Reason: Heartburn Carvedilol (Carvedilol 6.25 Mg Tablet) 6.25 mg PO BID [facility]; Protocol Last Admin: 02/21/25 08:57 Dose: 6.25 mg Cyanocobalamin (Cyanocobalamin (Vitamin B-12) 1,000 Mcg Tablet) 1,000 mcg PO DAILY [facility] Last Admin: 02/21/25 08:59 Dose: Not Given Folic Acid (Folic Acid 1 Mg Tablet) 1 mg PO DAILY [facility] Last Admin: 02/21/25 09:00 Dose: Not Given Gabapentin (Gabapentin 600 Mg Tablet) 600 mg PO TID [facility] Last Admin: 02/21/25 08:56 Dose: 600 mg Losartan Potassium (Losartan Potassium 25 Mg Tablet) 25 mg PO DAILY [facility]; Protocol Last Admin: 02/21/25 08:56 Dose: 25 mg Magnesium Hydroxide (Milk Of Magnesia 30 Ml Oral.Susp) 30 ml PO DAILY PRN PRN Reason: Constipation Melatonin (Melatonin 3 Mg Tablet) 6 mg PO BEDTIME PRN PRN Reason: Insomnia Pharmacy Consult (Consult Rx Etoh Phenob Im/Po) 1 each MISCELLANE ONCE PRN; Protocol PRN Reason: Consult order Phenobarbital (Phenobarbital 15 Mg Tablet) 45 mg PO BID [facility] Stop: 02/22/25 21:01 Last Admin: 02/21/25 08:57 Dose: 45 mg Phenobarbital (Phenobarbital 30 Mg Tablet) 30 mg PO BID [facility] Stop: 02/24/25 21:01 Phenobarbital (Phenobarbital 15 Mg Tablet) 15 mg PO DAILY [facility] Stop: 02/26/25 09:01 Pyridoxine HCl (Pyridoxine Hcl (Vitamin B6) 50 Mg Tablet) 50 mg PO DAILY [facility] Last Admin: 02/21/25 09:00 Dose: Not Given Sodium Chloride (0.9 % Sodium Chloride Flush 3 Ml Syringe) 3 ml IVFLUSH QSHIFT [facility] Last Admin: 02/21/25 08:59 Dose: 3 ml Thiamine HCl (Thiamine Hcl 100 Mg Tablet) 100 mg PO BID [facility] Last Admin: 02/21/25 09:00 Dose: Not Given Trazodone HCl (Trazodone Hcl 100 Mg Tablet) 100 mg PO BEDTIME [facility] Last Admin: 02/20/25 19:46 Dose: 100 mg Venlafaxine HCl (Venlafaxine Hcl Er 75 Mg Cap.Er.24h) 75 mg PO DAILY [facility] Last Admin: 02/21/25 08:57 Dose: 75 mg Allergies Allergies Allergy/AdvReac Type Severity Reaction Status Date / Time No Known Allergies Allergy Verified 02/20/25 01:32 Assessment & Plan Assessment & Plan (1) Alcohol use disorder: Status: Acute Code(s): F10.90 - Alcohol use, unspecified, uncomplicated Assessment and Plan: withdrawal improving--phenobarbital taper repairer controller tester to follow up in AM with sleep hygiene education and to discuss ways to address goal of abstaining from alcohol Total time managing care of this patient today ____ minutes.
--- NOTE | 2025-02-21 15:00 | CA_ITS ---
Transthoracic Echocardiogram Patient (Last, First, Middle): Papito Mtz, Gender: Male Date of : 1970 Age: 54 Procedure Date: 02/21/2025 Procedure Type: Transthoracic Echocardiogram Location: [facility] [place] Height: 170.18 cm Weight: 60.33 kg BSA: 1.70 m2 Heart Rate: 81 bpm BP: 144 / 92 mmHg High Climber: SB Referring MD: Beck Galeas MD Symptoms: ?reduced ef Study Quality: Adequate ECG Rhythm: Sinus Conclusions: - The left ventricular systolic function is mildly decreased. The calculated ejection fraction is 49% by biplane method. - The basal inferior segment is akinetic. - The basal inferolateral segment is hypokinetic. - No obvious valvular pathology seen on this study. Findings Left Ventricle Normal left ventricular cavity size. The left ventricular systolic function is mildly decreased. The calculated ejection fraction is 49% by biplane method. Diastolic function is normal for age. There is mild septal and mild basal asymmetric hypertrophy. Wall Motion Rest Echo Findings The basal inferolateral segment is hypokinetic. The basal inferior segment is akinetic. Right Ventricle Normal right ventricular cavity size and systolic function. Atria Both atria are normal in size. Aortic Valve There is a normal trileaflet aortic valve. There is no aortic valve stenosis. There is no aortic valve regurgitation. Mitral Valve The mitral valve appears normal. There is trace mitral valve regurgitation. There is no mitral valve stenosis. Pulmonic Valve The pulmonic valve is likely normal. Tricuspid Valve There is trace tricuspid valve regurgitation. There is no evidence of pulmonary hypertension. Great Vessels The asc aorta is normal in size. Venous The inferior vena cava was not well visualized. Pericardium/Pleural There is no evidence of pericardial effusion. Prior Study Comparison No prior study available for comparison. Recommendations, Care & Conclusions No obvious valvular pathology seen on this study. Measurements 2D Linear Measurements IVSd: 1.25 0.6-0.9/0.6-1.0 cm LVIDd: 4.41 3.9-5.3/4.2-5.9 cm LVIDd Index: 2.59 2.4-3.2/2.2-3.1 cm/m2 LVIDs: 3.40 2.0-3.6 cm LVPWd: 0.61 0.7-1.1 cm LA Diam: 3.40 2.7-3.8/3.0-4.0 cm LAIDs Index: 2.00 1.5-2.3 cm/m2 LV Mass: 166.66 67-162/88-224 g LV Mass Index: 98.04 43-95/49-115 g/m2 LVOT Diam: 2.10 3.0+(-)1.3 cm 2D Systolic Function EF 4C: 45.30 >55% EF 2C: 50.20 >55% EF BiP: 49.00 >55% Mitral Valve MV Pk E: 0.58 MV PK A: 0.76 MV Decel Time: 167.00 E/A: 0.80 E'Lateral: 7.07 E'Medial: 6.09 E/E' Med: 9.50 E/E' Lat: 8.20 PHT: 49.00 MVA PHT: 4.49 Decel Sevier: 3.47 Aortic Valve AoV Pk Michael: 0.92 AoV Pk Grad: 3.00 ALANA: 2.83 LVOT LVOT Pk Michael: 0.75 LVOT Mn Michael: 0.50 LVOT VTI: 0.15 LVOT Pk Grad: 2.00 LVOT Mn Grad: 1.00 LVOT Diam: 2.10 LVOT Area: 3.46 Diastolic Function MV Pk E: 0.58 MV Pk A: 0.76 E/A: 0.80 E'Medial: 6.09 E/E' Med: 9.50 E' Laterial: 7.07 E/E' Lat: 8.20 Right Ventricle TAPSE (mm): 17.40 TVS' Michael: 11.00 Great Vessels Aorta Sinus of Valsalva: 3.40 2.0-3.5 cm Ao Asc: 3.80 2.1-3.4 cm Pulmonary Valve PV Pk Michael: 0.62 Peak PV Grad: 2.00 Updated in Other Vendor System with Status of Final Jeovany Cronin MD electronically signed on 02/21/2025 4:41:36 PM with status of Final
[2025-02-21 15:53] VITALS: BP 160/104; PULSE 74; RESP 16; TEMP 36.8; O2SAT 100
[2025-02-21] MEDS: Sodium Ferric Gluconat/Sucrose 125 MG in 0.9 % Sodium Chloride 100 ML 100 MG IV (16:07)
[2025-02-21 19:33] VITALS: BP 180/100; PULSE 80; RESP 17; TEMP 36.5; O2SAT 98
[2025-02-21 19:38] VITALS: PULSE 82
[2025-02-21] MEDS: PEG 3350/Na Sulf,Bicarb,Cl/KCL 4,000 ML SOLN.RECON 4000 ML PO (20:52)
[2025-02-22] VITALS (12 sets, daily range): BP systolic 124–168; BP diastolic 85–102; PULSE 63–95; RESP 16–18; TEMP 36.2–36.8; O2SAT 96–100
[2025-02-22] MEDS: oxyCODONE HCl Immed Release 5 MG TABLET PO ×3 (00:14→15:00)
[2025-02-22] MEDS: 0.9 % Sodium Chloride Flush 3 ML SYRINGE IVFLUSH ×2 (00:15→08:28)
[2025-02-22 07:12] LABS: Hematocrit 24.4 % (42.0-52.0); Hemoglobin 8.1 g/dl (14.0-18.0); Mean Corpuscular HGB Conc 33.2 g/dl (31.0-36.0); Mean Corpuscular Hemoglobin 30.9 pg (27.0-33.0); Mean Corpuscular Volume 93.1 fL (80.0-98.0); NRBC Abs Auto 0.000 X10*3/uL (0.0-0.012); NRBC Pct Auto 0.0 /100WBC (0.0-0.2); Platelet Count 382 X10*3/uL (160-400); Red Blood Count 2.62 X10*6/uL (4.60-5.80); White Blood Count 5.7 X10*3/uL (4.8-10.8)
[2025-02-22 07:40] LABS: Alanine Aminotransferase 22 U/L (0-40); Albumin Level 2.9 g/dL (3.5-5.0); Alkaline Phosphatase 94 U/L (39-117); Anion Gap 12 (12-20); Aspartate Amino Transferase 44 U/L (5-37); Blood Urea Nitrogen 4 mg/dL (9-16); Calcium 7.9 mg/dL (8.4-10.2); Carbon Dioxide 25 mmol/L (22-29); Chloride 106 mmol/L (96-108); Creatinine Clr Calc Pharmacy 86.0; Estimated Glomerular Filt Rate > 60; Magnesium 1.2 mg/dL (1.6-2.6); Potassium 3.7 mmol/L (3.3-5.1); Sodium 139 mmol/L (135-145); Total Protein 5.7 g/dL (6.5-8.0)
[2025-02-22] MEDS: Magnesium Sulfate/H2O 2 GM/50 ML PIGGYBACK IV (08:27)
[2025-02-22] MEDS: Venlafaxine HCl ER 75 MG CAP.ER.24H PO (08:27)
--- NOTE | 2025-02-22 09:12 | P.CONCA_ITS ---
History of Present Illness History of Present Illness Date of Service: 02/22/25 Chief complaint: syncope alcohol withdrawal seizure Narrative: This is a cardiology consultation regarding preoperative risk stratification for EGD/colonoscopy. Previous records reviewed. It appears that he had an NSTEMI in 2022. Per cardiac catheterization notes, patient with a history of peripheral vascular disease, bilateral lower extremity DVT and had presented with shortness of breath and abnormal EKG with elevated troponins. Echocardiogram had revealed severe LV dysfunction with EF of 25-30%. Then treated as NSTEMI and underwent cardiac catheterization in April 2023. That showed severe ostial RCA stenosis positive for ischemia. Status post drug- eluting stent. Moderate disease in the LAD and mild circumflex disease. Patient states he does not follow actively with Cardiology. Per current admission notes, history of alcohol abuse/dependence and apparently he was found down at home by his daughter. He was oriented itself but was not answering any other questions upon arrival. Treated as second-degree to alcohol intoxication. In that setting, he was also diagnosed to have right lower lobe pulmonary embolism but unclear chronicity. Treated with phenobarbital. In this context, it seems that he had bright red blood per rectum and he needs GI workup for that. Hence we have been asked to see him as preoperative evaluation. Patient denies any clear-cut exertional anginal-type symptoms. And he in fact denies any recent chest pains or any other cardiac symptoms. He states he does not walk much at baseline and uses a cane as well as walker as he has issues with his leg. Review of Systems 2 Review of Systems: Yes all other systems are reviewed and are negative Constitutional: Constitutional: Reports as per HPI and Reports no additional constitutional complaints Eyes: Eyes: Reports as per HPI and Denies no additional eye complaints ENT: Denies system reviewed and no additional complaints, except as documented and Reports as per HPI Cardiovascular: Cardiovascular: Reports as per HPI, Reports no additional cardiovascular complaints, Denies acrocyanosis, Denies cool extremities, Denies chest pain, Denies leg edema, Denies lightheadedness, Denies palpitations and Denies dyspnea Respiratory: Respiratory: Reports as per HPI, Denies no additional respiratory complaints and Denies dyspnea Gastrointestinal: Gastrointestinal: Reports as per HPI and Denies no additional gastrointestinal complaints Genitourinary: Genitourinary: Reports no additional male genitourinary complaints and Reports as per HPI Musculoskeletal: Musculoskeletal: Reports no additional musculoskeletal complaints and Reports as per HPI Integumentary/Breasts: Skin/Breast: Reports system reviewed and no additional complaints, except as docu Neurologic: Reports system reviewed and no additional complaints, except as documented and Reports as per HPI Psychiatric: Psychiatric: Reports no additional psychiatric complaints and Reports as per HPI Endocrine: Endocrine: Reports no additional endocrine complaints, Reports as per HPI and Denies palpitations Hematologic/Lymphatic: Hematologic/Lymphatic: Reports no additional hematologic/lymphatic complaints and Reports as per HPI Allergic/Immunologic: Allergic/Immunologic: Reports no additional allergic/immunologic complaints and Reports as per HPI [facility] Past Medical History Medical History (Updated 02/22/25 @ 09:16 by Jeovany Cronin MD) Atherosclerotic cardiovascular disease Family History Pertinent family history: No pertinent family history Social History Social History Household Members: Family Housing: House Do you presently have visiting nurse or other home services: Yes Alcohol intake: current Alcohol intake frequency: 3 or more drinks per day Alcohol type: hard liquor Patient Tobacco Use Status: Current someday Tobacco user Tobacco use type: Cigarette Years Smoked: 40 years Second Hand Smoke Exposure: No Substance Use Type: Marijuana service: Yes Meds Allergies Allergy/AdvReac Type Severity Reaction Status Date / Time No Known Allergies Allergy Verified 02/20/25 01:32 Active Medications: Current Medications Acetaminophen (Acetaminophen 325 Mg Tablet) 650 mg PO Q6H PRN PRN Reason: Pain, Mild 1-3,fever,headache Last Admin: 02/22/25 03:42 Dose: 650 mg Calcium Carbonate (Calcium Carbonate 750 Mg Tab.Chew) 750 mg PO Q4H PRN PRN Reason: Heartburn Carvedilol (Carvedilol 6.25 Mg Tablet) 6.25 mg PO BID [facility]; Protocol Last Admin: 02/22/25 08:28 Dose: 6.25 mg Cyanocobalamin (Cyanocobalamin (Vitamin B-12) 1,000 Mcg Tablet) 1,000 mcg PO DAILY [facility] Last Admin: 02/22/25 08:28 Dose: 1,000 mcg Folic Acid (Folic Acid 1 Mg Tablet) 1 mg PO DAILY [facility] Last Admin: 02/22/25 08:28 Dose: 1 mg Gabapentin (Gabapentin 600 Mg Tablet) 600 mg PO TID [facility] Last Admin: 02/22/25 08:27 Dose: 600 mg Magnesium Sulfate (Magnesium Sulfate/H2o) 2 gm in 50 mls @ 25 mls/hr IV ONCE ONE Stop: 02/22/25 09:39 Last Admin: 02/22/25 08:27 Dose: 25 mls/hr Losartan Potassium (Losartan Potassium 25 Mg Tablet) 25 mg PO DAILY [facility]; Protocol Last Admin: 02/22/25 08:28 Dose: 25 mg Magnesium Hydroxide (Milk Of Magnesia 30 Ml Oral.Susp) 30 ml PO DAILY PRN PRN Reason: Constipation Melatonin (Melatonin 3 Mg Tablet) 6 mg PO BEDTIME PRN PRN Reason: Insomnia Oxycodone HCl (Oxycodone Hcl Immed Release 5 Mg Tablet) 5 mg PO Q6H PRN PRN Reason: Pain, Severe (Pain Scale 7-10) Last Admin: 02/22/25 08:37 Dose: 5 mg Pharmacy Consult (Consult Rx Etoh Phenob Im/Po) 1 each MISCELLANE ONCE PRN; Protocol PRN Reason: Consult order Phenobarbital (Phenobarbital 15 Mg Tablet) 45 mg PO BID [facility] Stop: 02/22/25 21:01 Last Admin: 02/22/25 08:27 Dose: 45 mg Phenobarbital (Phenobarbital 30 Mg Tablet) 30 mg PO BID [facility] Stop: 02/24/25 21:01 Phenobarbital (Phenobarbital 15 Mg Tablet) 15 mg PO DAILY [facility] Stop: 02/26/25 09:01 Pyridoxine HCl (Pyridoxine Hcl (Vitamin B6) 50 Mg Tablet) 50 mg PO DAILY [facility] Last Admin: 02/22/25 08:27 Dose: 50 mg Sodium Chloride (0.9 % Sodium Chloride Flush 3 Ml Syringe) 3 ml IVFLUSH QSHIFT [facility] Last Admin: 02/22/25 08:28 Dose: 3 ml Thiamine HCl (Thiamine Hcl 100 Mg Tablet) 100 mg PO BID [facility] Last Admin: 02/22/25 08:28 Dose: 100 mg Trazodone HCl (Trazodone Hcl 100 Mg Tablet) 100 mg PO BEDTIME [facility] Last Admin: 02/21/25 22:10 Dose: 100 mg Venlafaxine HCl (Venlafaxine Hcl Er 75 Mg Cap.Er.24h) 75 mg PO DAILY [facility] Last Admin: 02/22/25 08:27 Dose: 75 mg Home Medications ?Medication ?Instructions ?Recorded ?Confirmed ?Last Taken ?Type acetaminophen 500 mg tablet 1,000 mg PO TID PRN modera te pain 02/20/25 02/20/25 Unknown History apixaban 5 mg tablet (Eliquis) 5 mg PO BID 02/20/2502/19/25 History aspirin 81 mg tablet,delayed 81 mg PO DAILY 02/20/25 0 02/20/25 02/19/25 History release carvedilol 6.25 mg tablet 6.25 mg PO BID 02/20/2502/0602/19/25 History cyanocobalamin (vitamin B-12) 1,000 mcg PO DAILY 02/2002/20/25 Unknown History 1,000 mcg tablet folic acid 1 mg tablet 1 mg PO DAILY 02/20/2502/2002/19/25 History gabapentin 600 mg tablet 600 mg PO TID 02/20/2502/2002/19/25 History losartan 25 mg tablet 25 mg PO DAILY 02/20/2502/0602/19/25 History pyridoxine (vitamin B6) 50 mg 50 mg PO DAILY 02/20/25 02/20/25 Unknown History tablet thiamine HCl (vitamin B1) 100 mg 100 mg PO BID 5 02/20/25 02/19/25 History tablet trazodone 100 mg tablet 100 mg PO BEDTIME 02/20/25 0 02/20/25 02/19/25 History venlafaxine 75 mg capsule,extended 75 mg PO DAILY 02/0602/20/25 02/19/25 History release 24 hr Physical Exam 2 Vital Signs: Vital Signs: Last Vital Signs Temp 97.2 F 02/22/25 07:54 Pulse 77 02/22/25 07:54 Resp 16 02/22/25 07:54 BP 142/90 H 02/22/25 07:54 Pulse Ox 100 02/22/25 07:54 O2 Del Method Room Air 02/22/25 07:54 BMI result Body Mass Index 20.9 Const: General: comfortable and no acute distress O rientation/consciousness: patient oriented x3 HEENT: Other: Unremarkable Head: Yes normal to inspection Neck: Neck: Yes normal visual inspection Chest: Chest palpation & inspection: normal inspection of the chest Resp: Auscultation: clear to auscultation bilaterally Cardio: Palpation: normal PMI Heart sounds: S1 normal heart sound present, S2 normal heart sound present, no gallops, no murmurs and no rubs GI: Palpation (GI): Soft to palpation Back/Spine/Pelvis: Other: unremarkable Skin: General skin exam: no rashes or lesions noted Neuro: General: patient oriented x3 Extrem: General: Yes normal to inspection Psych: Mental Status: mental status grossly normal Objective Labs and Meds 02/22/25 06:57 02/22/25 06:57 Lab results: Laboratory Results - last 24 hr 02/22/25 06:57 WBC 5.7 RBC 2.62 L Hgb 8.1 L Hct 24.4 L MCV 93.1 MCH 30.9 MCHC 33.2 RDW 19.2 H Plt Count 382 MPV 9.2 L Absolute Nucleated RBC 0.000 Nucleated RBC % (auto) 0.0 Smear Path Review SEE NOTE Sodium 139 Potassium 3.7 Chloride 106 Carbon Dioxide 25 Anion Gap 12 BUN 4 L Creatinine 0.84 Estim Creat Clear Calc 86.0 Estimated GFR > 60 Random Glucose 78 Calcium 7.9 L Magnesium 1.2 L* Total Bilirubin 0.3 Direct Bilirubin 0.2 AST 44 H ALT 22 Alkaline Phosphatase 94 Total Protein 5.7 L Albumin 2.9 L ECG Interpretation: EKG with underlying sinus rhythm at 60/Min; no ischemic changes; normal MS and corrected QT. Assessment and Plan (1) Preoperative cardiovascular examination: Status: Acute (2) Atherosclerotic cardiovascular disease: Status: Acute (3) Alcohol intoxication: Status: Acute (4) Pulmonary embolism: Status: Acute Plan Per recent echocardiogram, LVEF is 49%. Basal inferior akinesis and inferolateral hypokinesis. Similar findings in a prior echocardiogram. Overall, improved from the initial description of EF in the 20s. High sensitivity troponin is within range. Elevated alcohol levels consistent with recent use. Overall, his cardiac status is compensated at this time. If GI workup is indicated to evaluate lower gastrointestinal bleeding, may proceed as planned. Intermediate cardiac risk. Correct electrolytes. Procedures Date of Service Date of Service: 02/22/25
--- NOTE | 2025-02-22 10:35 | PC.NURSE ---
Patient off unit to OR
[2025-02-22] MEDS: Lactated Ringers 1,000 ML 80 ML IVCONT ×2 (10:57→15:00)
--- NOTE | 2025-02-22 11:14 | HO.PM.IMPN ---
Subjective Subjective Date of Service: 02/22/25 Interval History: had another brbpr 02/21 Physical Exam Vital Signs: Vital Signs: Last Vital Signs Temp 97.7 F 02/22/25 10:40 Pulse 77 02/22/25 10:40 Resp 16 02/22/25 10:40 BP 140/92 H 02/22/25 10:40 Pulse Ox 100 02/22/25 10:40 O2 Del Method Room Air 02/22/25 10:40 BMI result Body Mass Index 20.9 General: AO X 3, no acute distress Resp: CTA bilateral, no accessory muscles used CVS: S1,S2,RRR GI: soft, non tender, non distended Neuro: motor grossly intact, alert Psych: appropriate affect, appropriate insight Objective Data Active Medications Acetaminophen (Acetaminophen 325 Mg Tablet) 650 mg PO Q6H PRN PRN Reason: Pain, Mild 1-3,fever,headache Last Admin: 02/22/25 03:42 Dose: 650 mg Documented By: ALE Calcium Carbonate (Calcium Carbonate 750 Mg Tab.Chew) 750 mg PO Q4H PRN PRN Reason: Heartburn Carvedilol (Carvedilol 6.25 Mg Tablet) 6.25 mg PO BID [facility]; Protocol Last Admin: 02/22/25 08:28 Dose: 6.25 mg Documented By: TUTU Cyanocobalamin (Cyanocobalamin (Vitamin B-12) 1,000 Mcg Tablet) 1,000 mcg PO DAILY [facility] Last Admin: 02/22/25 08:28 Dose: 1,000 mcg Documented By: TUTU Folic Acid (Folic Acid 1 Mg Tablet) 1 mg PO DAILY [facility] Last Admin: 02/22/25 08:28 Dose: 1 mg Documented By: TUTU Gabapentin (Gabapentin 600 Mg Tablet) 600 mg PO TID [facility] Last Admin: 02/22/25 08:27 Dose: 600 mg Documented By: TUTU Lactated Ringer's (Lr) 1,000 mls @ 80 mls/hr IVCONT .[id number] [facility] Last Admin: 02/22/25 10:57 Dose: 80 mls/hr Documented By: JOE Losartan Potassium (Losartan Potassium 25 Mg Tablet) 25 mg PO DAILY [facility]; Protocol Last Admin: 02/22/25 08:28 Dose: 25 mg Documented By: TUTU Magnesium Hydroxide (Milk Of Magnesia 30 Ml Oral.Susp) 30 ml PO DAILY PRN PRN Reason: Constipation Melatonin (Melatonin 3 Mg Tablet) 6 mg PO BEDTIME PRN PRN Reason: Insomnia Oxycodone HCl (Oxycodone Hcl Immed Release 5 Mg Tablet) 5 mg PO Q6H PRN PRN Reason: Pain, Severe (Pain Scale 7-10) Last Admin: 02/22/25 08:37 Dose: 5 mg Documented By: TUTU Pharmacy Consult (Consult Rx Etoh Phenob Im/Po) 1 each MISCELLANE ONCE PRN; Protocol PRN Reason: Consult order Phenobarbital (Phenobarbital 15 Mg Tablet) 45 mg PO BID [facility] Stop: 02/22/25 21:01 Last Admin: 02/22/25 08:27 Dose: 45 mg Documented By: TUTU Phenobarbital (Phenobarbital 30 Mg Tablet) 30 mg PO BID [facility] Stop: 02/24/25 21:01 Phenobarbital (Phenobarbital 15 Mg Tablet) 15 mg PO DAILY [facility] Stop: 02/26/25 09:01 Pyridoxine HCl (Pyridoxine Hcl (Vitamin B6) 50 Mg Tablet) 50 mg PO DAILY [facility] Last Admin: 02/22/25 08:27 Dose: 50 mg Documented By: TUTU Sodium Chloride (0.9 % Sodium Chloride Flush 3 Ml Syringe) 3 ml IVFLUSH QSHIFT [facility] Last Admin: 02/22/25 08:28 Dose: 3 ml Documented By: TUTU Thiamine HCl (Thiamine Hcl 100 Mg Tablet) 100 mg PO BID [facility] Last Admin: 02/22/25 08:28 Dose: 100 mg Documented By: TUTU Trazodone HCl (Trazodone Hcl 100 Mg Tablet) 100 mg PO BEDTIME [facility] Last Admin: 02/21/25 22:10 Dose: 100 mg Documented By: ALE Venlafaxine HCl (Venlafaxine Hcl Er 75 Mg Cap.Er.24h) 75 mg PO DAILY [facility] Last Admin: 02/22/25 08:27 Dose: 75 mg Documented By: TUTU Labs 02/22/25 06:57 02/22/25 06:57 Labs: Laboratory Results - last 24 hr 02/22/25 02/22/25 06:57 09:59 MCV 93.1 MCH 30.9 MCHC 33.2 RDW 19.2 H Plt Count 382 MPV 9.2 L Absolute Nucleated RBC 0.000 Nucleated RBC % (auto) 0.0 Smear Path Review SEE NOTE Anion Gap 12 Estim Creat Clear Calc 86.0 Estimated GFR > 60 Random Glucose 78 Calcium 7.9 L Magnesium 1.2 L* Total Bilirubin 0.3 Direct Bilirubin 0.2 AST 44 H ALT 22 Alkaline Phosphatase 94 Total Protein 5.7 L Albumin 2.9 L Blood Type O Positive Antibody Screen NEGATIVE Crossmatch See Detail Assessment and Plan (1) Alcohol use disorder: Status: Acute Plan 54M PMH etoh dependence, vte on eliquis, CAD, chf with reduced EF presented with fall, found to be in withdrawal, and new small PE, now complicated by BRBPR Syncope due to alcohol dependence with withdrawal Continue phenobarb, CIWA Right lower lobe pulmonary embolism, recurrent Holding anticoagulation due to GI bleed Bright red blood per rectum Hemoglobin stable - but will transfuse 1 unit prbc, holding Eliquis, plan for scope today Mild acute hypernatremia Resolved hfref stable, coreg, losartan cad hodling eliquis and asa for bleed DVT prophylaxis-mechanical due to bright red blood per rectum Full code reason for continued hospitalization:inpatient scope due to need for AC Quality Stroke Does the patient have a stroke diagnosis?: No VTE Prior VTE?: No VTE Risk Level:: Medical - moderate - high VTE Device Contraindication: N/A - Device Ordered VTE Drug Contraindication: N/A - Med Ordered
--- NOTE | 2025-02-22 11:52 | MHC.RECOVRN ---
Met with pt in rm# [id number] to follow up and provide support. Pt is alert, awake, pleasant and engaged during interaction. Pt denies w/d symptoms and sates I'm feeling a lot better. Just a litle anxious trying to figure out what the plan is from here . Pt educated on medical condition and need for further diagnostic testing before discharge planning can be arranged. Pt also informed to check with his nurse or classification case manager for updates regarding discharge planning. Pt was offered resources to support AUD, however, pt declined at this time and states, if I get into a rehab or assisted living facility I know I will not drink. A lot if this is related to my health . Pt informed [facility] could provide information in the event he needs it in the future however he continued to decline. TW available as needed.
--- NOTE | 2025-02-22 11:58 | PC.NURSE ---
Addendum entered by Katie Wallace RN 02/22/25 13:13: pt transported to OR by HALINA Brantley RN and Dr. Street Anesthesiologist with blood still transfusing. Pressure bag applied per Dr. Street. Original Note: Dr. Street at bedside during start of blood transfusion. Per Dr. Street orders received to administer blood without IV pump. Blood transfusion started.
--- NOTE | 2025-02-22 12:58 | P.PNGI_ITS ---
Subjective Subjective Date of Service: 02/22/25 Interval History: no abdominal pain no n/v saw some dark brown and black colored stools HGB has been stable Critical Care Time (minutes): 0 Physical Exam 2 Vital Signs: Vital Signs: Last Vital Signs Temp 97.5 F 02/22/25 12:13 Pulse 79 02/22/25 12:13 Resp 16 02/22/25 12:13 BP 142/94 H 02/22/25 12:13 Pulse Ox 100 02/22/25 10:40 O2 Del Method Room Air 02/22/25 10:40 BMI result Body Mass Index 20.9 EXAM: GENERAL: The patient is well developed and nontoxic. VITAL SIGNS:see workflow HEENT: Nonicteric sclerae, PERRLA, EOMI. Oropharynx clear. Moist mucous membranes. Conjunctivae appear well perfused. No thyroid mass. CHEST: Chest wall is nontender. HEART: Regular rate and rhythm without murmurs. LUNGS: Clear to auscultation bilaterally. ABDOMEN: Soft, positive bowel sounds, nontender, no organomegaly.no flank tenderness SKIN: No rash, no excessive bruising, petechiae, or purpura. NEUROLOGIC: Cranial nerves II-XII intact without motor/sensory deficit. Psych: normal affect Objective Data Labs 02/22/25 06:57 02/22/25 06:57 Labs: Laboratory Results - last 24 hr 02/22/25 02/22/25 06:57 09:59 WBC 5.7 RBC 2.62 L Hgb 8.1 L Hct 24.4 L MCV 93.1 MCH 30.9 MCHC 33.2 RDW 19.2 H Plt Count 382 MPV 9.2 L Absolute Nucleated RBC 0.000 Nucleated RBC % (auto) 0.0 Smear Path Review SEE NOTE Sodium 139 Potassium 3.7 Chloride 106 Carbon Dioxide 25 Anion Gap 12 BUN 4 L Creatinine 0.84 Estim Creat Clear Calc 86.0 Estimated GFR > 60 Random Glucose 78 Calcium 7.9 L Magnesium 1.2 L* Total Bilirubin 0.3 Direct Bilirubin 0.2 AST 44 H ALT 22 Alkaline Phosphatase 94 Total Protein 5.7 L Albumin 2.9 L Blood Type O Positive Antibody Screen NEGATIVE Crossmatch See Detail Procedures Date of Service Date of Service: 02/22/25 Progress Note: A&P Assessment and plan (1) Acute GI bleeding: Status: Acute Plan 1/ Acute blood loss anemia, seems stable, ddx: PUD, neoplasia, AVM PLAN: 1/ EGD and colo today for further assessment 2/ hold eliquis for the moment Time Spent With Patient Time: Total time managing care of this patient today ____ minutes. Quality Stroke Does the patient have a stroke diagnosis?: No VTE Prior VTE?: No VTE Risk Level:: Medical - moderate - high VTE Device Contraindication: N/A - Device Ordered VTE Drug Contraindication: N/A - Med Ordered
--- NOTE | 2025-02-22 13:06 | HO.ANESPROP2 ---
[facility] Active Problems Active Problems: All Active Problems Acute GI bleeding (Acute) Preoperative cardiovascular examination (Acute) Atherosclerotic cardiovascular disease (Acute) Alcohol intoxication (Acute) Mild protein malnutrition (Acute) Hypocalcemia (Acute) Hypomagnesemia (Acute) Thrombocytosis (Acute) Alcohol use disorder (Acute) On continuous oral anticoagulation (Acute) Pulmonary embolism (Acute) Syncope (Acute) Past Medical History Medical History (Updated 02/22/25 @ 10:43 by Madeleine Kumari MD) Atherosclerotic cardiovascular disease Functional capacity: independent ambulation Family History Family history of problems with anesthesia: No Surgical History History of Problems with Anesthesia: No Social History Social History Household Members: Family Housing: House Are you a primary manager medicare marketing to a significant other at home: No Do you presently have visiting nurse or other home services: No Alcohol intake: current Alcohol intake frequency: does not drink Alcohol type: hard liquor Patient Tobacco Use Status: Never used Tobacco Tobacco use type: Cigarette Years Smoked: 40 years Second Hand Smoke Exposure: No Substance Use Type: Marijuana service: Yes Meds Allergies Allergy/AdvReac Type Severity Reaction Status Date / Time No Known Allergies Allergy Verified 02/20/25 01:32 Active Medications: Current Medications Acetaminophen (Acetaminophen 325 Mg Tablet) 650 mg PO Q6H PRN PRN Reason: Pain, Mild 1-3,fever,headache Last Admin: 02/22/25 03:42 Dose: 650 mg Calcium Carbonate (Calcium Carbonate 750 Mg Tab.Chew) 750 mg PO Q4H PRN PRN Reason: Heartburn Carvedilol (Carvedilol 6.25 Mg Tablet) 6.25 mg PO BID [facility]; Protocol Last Admin: 02/22/25 08:28 Dose: 6.25 mg Cyanocobalamin (Cyanocobalamin (Vitamin B-12) 1,000 Mcg Tablet) 1,000 mcg PO DAILY [facility] Last Admin: 02/22/25 08:28 Dose: 1,000 mcg Folic Acid (Folic Acid 1 Mg Tablet) 1 mg PO DAILY [facility] Last Admin: 02/22/25 08:28 Dose: 1 mg Gabapentin (Gabapentin 600 Mg Tablet) 600 mg PO TID [facility] Last Admin: 02/22/25 08:27 Dose: 600 mg Lactated Ringer's (Lr) 1,000 mls @ 80 mls/hr IVCONT .[id number] [facility] Last Admin: 07/17/25 10:57 Dose: 80 mls/hr Losartan Potassium (Losartan Potassium 25 Mg Tablet) 25 mg PO DAILY [facility]; Protocol Last Admin: 02/22/25 08:28 Dose: 25 mg Magnesium Hydroxide (Milk Of Magnesia 30 Ml Oral.Susp) 30 ml PO DAILY PRN PRN Reason: Constipation Melatonin (Melatonin 3 Mg Tablet) 6 mg PO BEDTIME PRN PRN Reason: Insomnia Oxycodone HCl (Oxycodone Hcl Immed Release 5 Mg Tablet) 5 mg PO Q6H PRN PRN Reason: Pain, Severe (Pain Scale 7-10) Last Admin: 02/22/25 08:37 Dose: 5 mg Pharmacy Consult (Consult Rx Etoh Phenob Im/Po) 1 each MISCELLANE ONCE PRN; Protocol PRN Reason: Consult order Phenobarbital (Phenobarbital 15 Mg Tablet) 45 mg PO BID [facility] Stop: 02/22/25 21:01 Last Admin: 02/22/25 08:27 Dose: 45 mg Phenobarbital (Phenobarbital 30 Mg Tablet) 30 mg PO BID [facility] Stop: 02/24/25 21:01 Phenobarbital (Phenobarbital 15 Mg Tablet) 15 mg PO DAILY [facility] Stop: 02/26/25 09:01 Pyridoxine HCl (Pyridoxine Hcl (Vitamin B6) 50 Mg Tablet) 50 mg PO DAILY [facility] Last Admin: 02/22/25 08:27 Dose: 50 mg Sodium Chloride (0.9 % Sodium Chloride Flush 3 Ml Syringe) [facility] Admin: 02/22/25 08:28 Dose: 3 ml Thiamine HCl (Thiamine Hcl 100 Mg Tablet) 100 mg PO BID [facility] Last Admin: 02/22/25 08:28 Dose: 100 mg Trazodone HCl (Trazodone Hcl 100 Mg Tablet) 100 mg PO BEDTIME [facility] Last Admin: 02/21/25 22:10 Dose: 100 mg Venlafaxine HCl (Venlafaxine Hcl Er 75 Mg Cap.Er.24h) 75 mg PO DAILY [facility] Last Admin: 02/22/25 08:27 Dose: 75 mg Home Medications ?Medication ?Instructions ?Recorded ?Confirmed ?Last Taken ?Type acetaminophen 500 mg tablet 1,000 mg PO TID PRN moderate pain 02/20/25 02/20/25 Unknown History apixaban 5 mg tablet (Eliquis) 5 mg PO BID 02/20/25 02/20/25 02/19/25 History aspirin 81 mg tablet,delayed 81 mg PO DAILY 02/20/25 02/20/25 02/19/25 History release carvedilol 6.25 mg tablet 6.25 mg PO BID 02/20/25 02/20/25 02/19/25 History cyanocobalamin (vitamin B-12) 1,000 mcg PO DAILY 02/20/25 02/20/25 Unknown History 1,000 mcg tablet folic acid 1 mg tablet 1 mg PO DAILY 02/20/25 02/20/25 02/19/25 History gabapentin 600 mg tablet 600 mg PO TID 02/20/25 02/20/25 02/19/25 History losartan 25 mg tablet 25 mg PO DAILY 02/20/25 02/20/25 02/19/25 History pyridoxine (vitamin B6) 50 mg 50 mg PO DAILY 02/20/25 02/20/25 Unknown History tablet thiamine HCl (vitamin B1) 100 mg 100 mg PO BID 02/20/25 02/20/25 02/19/25 History tablet trazodone 100 mg tablet 100 mg PO BEDTIME 02/20/25 02/20/25 02/19/25 History venlafaxine 75 mg capsule,extended 75 mg PO DAILY 02/20/25 02/20/25 02/19/25 History release 24 hr Exam Height,Weight and Vital Signs: Height 5 ft 7 in Weight 60.5 kg Last Vital Signs Temp 97.5 F 02/22/25 12:13 Pulse 79 02/22/25 12:13 Resp 16 02/22/25 12:13 BP 142/94 H 02/22/25 12:13 Pulse Ox 100 02/22/25 10:40 O2 Del Method Room Air 02/22/25 10:40 Pertinent Lab Results Pertinent Lab Results: Laboratory Tests 02/20/25 02/20/25 02/20/25 01:56 02:40 05:38 WBC 6.0 RBC 2.87 L Hgb 8.9 L Hct 27.4 L MCV 95.5 MCH 31.0 MCHC 32.5 RDW 19.7 H Plt Count 568 H D MPV 8.8 L Immature Gran % (Auto) 0.2 Neut % (Auto) 38.7 L Lymph % (Auto) 48.2 H Bibb % (Auto) 6.6 Eos % (Auto) 3.8 Baso % (Auto) 2.5 H Lymph # (Auto) 2.9 Bibb # (Auto) 0.4 Eos # (Auto) 0.2 Baso # (Auto) 0.2 Abs Immat Gran (auto) 0.01 Absolute Neuts (auto) 2.3 Absolute Nucleated RBC 0.000 Nucleated RBC % (auto) 0.0 Smear Path Review PT 16.5 H D INR 1.4 H Sodium 146 H Potassium 3.9 Chloride 111 H Carbon Dioxide 22 Anion Gap 17 BUN 11 Creatinine 1.31 Estim Creat Clear Calc 53.7 Estimated GFR 57 Random Glucose 95 Calcium 7.9 L D Magnesium 1.6 Total Bilirubin 0.2 Direct Bilirubin AST 106 H ALT 41 H Alkaline Phosphatase 94 Total Creatine Kinase 89 Troponin I High Sens < 2.7 Total Protein 6.4 L Albumin 3.3 L Ethyl Alcohol 249 Blood Type Antibody Screen Crossmatch 02/21/25 02/22/25 02/22/25 06:22 06:57 09:59 WBC 7.1 5.7 RBC 2.76 L 2.62 L Hgb 8.4 L 8.1 L Hct 25.9 L 24.4 L MCV 93.8 93.1 MCH 30.4 30.9 MCHC 32.4 33.2 RDW 19.5 H 19.2 H Plt Count 452 H 382 MPV 8.9 L 9.2 L Immature Gran % (Auto) Neut % (Auto) Lymph % (Auto) Bibb % (Auto) Eos % (Auto) Baso % (Auto) Lymph # (Auto) Bibb # (Auto) Eos # (Auto) Baso # (Auto) Abs Immat Gran (auto) Absolute Neuts (auto) Absolute Nucleated RBC 0.000 0.000 Nucleated RBC % (auto) 0.0 0.0 Smear Path Review SEE NOTE PT INR Sodium 140 139 Potassium 4.1 3.7 Chloride 109 H 106 Carbon Dioxide 23 25 Anion Gap 12 12 BUN 8 L 4 L Creatinine 0.98 0.84 Estim Creat Clear Calc 73.7 86.0 Estimated GFR > 60 > 60 Random Glucose 93 78 Calcium 8.0 L 7.9 L Magnesium 1.2 L* Total Bilirubin 0.4 0.3 Direct Bilirubin 0.2 AST 76 H 44 H ALT 34 22 Alkaline Phosphatase 90 94 Total Creatine Kinase Troponin I High Sens Total Protein 5.8 L 5.7 L Albumin 2.9 L 2.9 L Ethyl Alcohol Blood Type O Positive Antibody Screen NEGATIVE Crossmatch See Detail Airway Mallampati Class: II TM Dist: >3cm Neck ROM: Full Assessment and Plan Final Anesthetic Review Family History of Problems with Anesthesia: No History of Problems with Anesthesia: No NPO: Yes ASA Class: III Final Preanesthetic Review: No Changes in Pt Med Stat, Meds/Allgs Chart Reviewed, Consent Obtained/Reviewed and Anes Risks/Benef Reviewed Procedure Risk: Low Anesthetic Plan Anesthetic Plan: TIVA Disposition: Standard PACU
--- NOTE | 2025-02-22 13:44 | HO.OPN-COLON ---
Colonoscopy Operative Note Operative Note Date of Service: 02/22/25 Narrative: Operative Information Procedure Description: EGD, Colonoscopy Indication: anemia Anesthesia: MAC FLEXIBLE TRANSORAL UPPER GASTROINTESTINAL ENDOSCOPY AND COLONOSCOPY PROCEDURE NOTE UPPER ENDOSCOPY Consent: Indications for the procedure and potential complications of bleeding, perforation, reaction to medications and missed diagnosis were discussed with the patient and informed consent was obtained. Instrument: Olympus GIF H 190 J mid size upper endoscope Monitoring: Vital signs and clinical assessment, continuous EKG monitoring, Pulse oximetry, Carbon Dioxide monitoring and blood pressure monitoring were done throughout the procedure. Procedure: The patient was placed in the left lateral decubitis position and pre-procedure medications were administered and a bite block was placed. The endoscope was inserted into the mouth and advanced under direct vision to the third part of duodenum. A careful inspection was made as the upper endoscope was withdrawn including a retroflexed examination of the proximal stomach; Findings and interventions are described below. Findings: Larynx:normal Esophagus: GE junction at 40 cm, diaphragm hiatus at 42 cm, consistent with 2 cm sliding hiatal hernia, with schatzki ring. LA grade B erosive esophagitis noted Stomach: Patchy erythema. Biopsies were obtained to r/o H pylori. Grade 2 flap valve on retroflexed examination of the cardia. Duodenum: Moderate duodenitis Intervention: Biopsies as noted above, COLONOSCOPY Instrument: Olympus variable stiffness pediatric scope 190L Colonoscopy Monitoring: Vital signs and clinical assessment, continuous EKG monitoring, Pulse oximetry, Carbon Dioxide monitoring and blood pressure monitoring were done throughout the procedure. Colon withdrawal time was 15 minutes. Procedure: The patient was placed in the left lateral decubitis position and pre-procedure medications were administered. After a digital rectal examination of the ano-rectum, the video colonoscope was inserted into the rectum and advanced through the colon to the cecum/TI. The colonoscope was slowly withdrawn in a retrograde panoramic fashion and the colon mucosa was carefully examined including a retroflexed view of the rectum. Findings and interventions are described below. Procedure Difficulty: easy Findings: Terminal Ileum-normal Cecum:normal Retroflexion on right- normal Ascending Colon: normal Transverse Colon -normal Descending Colon: 6-8 mm sessile polyp removed with cold snare Sigmoid Colon: mild diverticulosis, 10 mm sessile polyp raised with eleview injection and removed with cold snare. x 2 clips applied for hemostasis. Rectum: Retroflexion with small internal hemorrhoids, grade I Anorectum - normal Colon preparation: [place] Bowel Preparation Scale Right colon; 2 Transverse colon: 2 Left colon; 2 (0 = Unprepared colon segment with mucosa not seen due to solid stool that cannot be cleared. 1 = Portion of mucosa of the colon segment seen, but other areas of the colon segment not well seen due to staining, residual stool and/or opaque liquid. 2 = Minor amount of residual staining, small fragments of stool and/or opaque liquid, but mucosa of colon segment seen well. 3 = Entire mucosa of colon segment seen well with no residual staining, small fragments of stool or opaque liquid) Impression and Post Procedure Diagnosis: Endoscopy Findings: hiatal hernia schatzki ring erosive esophagitis duodenitis Colonoscopy Findings: diverticulosis colon polyps x 2 internal hemorrhoids Plan: Await Pathology results Repeat Colonoscopy in 3-4 years or earlier if clinically indicated High fiber diet leaflet avoid straining at stool, epsom salts and sitz bath, anusol supps or cream GI bleeding prob from erosive esophagitis and duodenitis, hemorrhoids, needs to remain alcohol free high dose PPI, and restart anticoagulation after 24 hrs Above findings were reviewed with the patient and relevant handouts were provided if indicated.
--- NOTE | 2025-02-22 16:49 | MHC.RECOVRN ---
TW met with pt in to offer support. Pt ws restin in bed and denies issues or complaints. TW asked if there was any support the ACS team could offer and he stated, I really just need to be placed somewhere, like a snf. If I had that I don't think I would drink as much as I do . Pt educated on harm reduction strategies such as alternating between water and eating before consuming alcohol . Pt voiced his understanding and reports he will reach out if he needs anything further. ACS team is available for further questions or concerns or to offer support if needed.
--- NOTE | 2025-02-22 18:42 | PC.NURSE ---
Patient underwent endoscopy and colonoscopy today, daughter called and was updated on patients condition. Patient c/o dizziness while ambulating. Patient has been c/o pain and was medicated with PRN pain medication. NPO for morning and midday meal, able to order dinner and tolerated the meal well.
[2025-02-23] VITALS (8 sets, daily range): BP systolic 120–147; BP diastolic 78–94; PULSE 75–99; RESP 16–19; TEMP 36.4–37.3; O2SAT 97–99
[2025-02-23] MEDS: Lactated Ringers 1,000 ML 80 ML IVCONT (04:08)
[2025-02-23] MEDS: oxyCODONE HCl Immed Release 5 MG TABLET PO ×4 (04:09→23:12)
--- NOTE | 2025-02-23 06:12 | PC.NURSE ---
Patient found with vape in bed, vape taken away & patient notified use of vape is not allowed in hospital. Vape placed in bag and put in patients chart to be given upon discharge.
[2025-02-23 07:43] LABS: Hematocrit 27.6 % (42.0-52.0); Hemoglobin 9.2 g/dl (14.0-18.0); Mean Corpuscular HGB Conc 33.3 g/dl (31.0-36.0); Mean Corpuscular Hemoglobin 30.7 pg (27.0-33.0); Mean Corpuscular Volume 92.0 fL (80.0-98.0); NRBC Abs Auto 0.000 X10*3/uL (0.0-0.012); NRBC Pct Auto 0.0 /100WBC (0.0-0.2); Platelet Count 363 X10*3/uL (160-400); Red Blood Count 3.00 X10*6/uL (4.60-5.80); White Blood Count 13.6 X10*3/uL (4.8-10.8)
[2025-02-23 07:58] LABS: Anion Gap 12 (12-20); Blood Urea Nitrogen 4 mg/dL (9-16); Calcium 7.8 mg/dL (8.4-10.2); Carbon Dioxide 23 mmol/L (22-29); Chloride 105 mmol/L (96-108); Creatinine Clr Calc Pharmacy 85.0; Estimated Glomerular Filt Rate > 60; Potassium 3.8 mmol/L (3.3-5.1); Sodium 136 mmol/L (135-145)
[2025-02-23] MEDS: Venlafaxine HCl ER 75 MG CAP.ER.24H PO (08:48)
--- NOTE | 2025-02-23 09:05 | HO.POSTANES ---
Post Anesthesia Evaluation Post Anesthesia Evaluation Date of Service: 02/23/25 Vital Signs: Vital Signs Temp Pulse Resp BP Pulse Ox O2 Del Method 02/23/25 08:00 98.8 F 81 17 128/91 H 97 Room Air 02/23/25 04:00 98.6 F 94 16 140/78 H 99 Room Air 02/23/25 00:00 98.7 F 99 16 133/83 97 Room Air 02/22/25 22:28 95 168/85 H Anesthesia: TIVA Mental Status: Awake Pain Control: Satisfactory Nausea/Vomiting: None Hydration: Adequate Anesthesia-Related Issues: No Anes. Related Issues
--- NOTE | 2025-02-23 10:24 | HO.PM.IMPN ---
Subjective Subjective Date of Service: 02/23/25 Interval History: no complaints Physical Exam Vital Signs: Vital Signs: Last Vital Signs Temp 98.8 F 02/23/25 08:00 Pulse 81 02/23/25 08:00 Resp 17 02/23/25 08:00 BP 128/91 H 02/23/25 08:00 Pulse Ox 97 02/23/25 08:00 O2 Del Method Room Air 02/23/25 08:00 BMI result Body Mass Index 20.9 General: AO X 3, no acute distress Resp: CTA bilateral, no accessory muscles used CVS: S1,S2,RRR GI: soft, non tender, non distended Neuro: motor grossly intact, alert Psych: appropriate affect, appropriate insight Objective Data Active Medications Acetaminophen (Acetaminophen 325 Mg Tablet) 650 mg PO Q6H PRN PRN Reason: Pain, Mild 1-3,fever,headache Last Admin: 02/22/25 17:22 Dose: 650 mg Documented By: TUTU Apixaban (Apixaban 5 Mg Tablet) 5 mg PO BID [facility] Last Admin: 02/23/25 08:48 Dose: 5 mg Documented By: TUTU Calcium Carbonate (Calcium Carbonate 750 Mg Tab.Chew) 750 mg PO Q4H PRN PRN Reason: Heartburn Carvedilol (Carvedilol 6.25 Mg Tablet) 6.25 mg PO BID [facility]; Protocol Last Admin: 02/23/25 08:48 Dose: 6.25 mg Documented By: TUTU Cyanocobalamin (Cyanocobalamin (Vitamin B-12) 1,000 Mcg Tablet) 1,000 mcg PO DAILY [facility] Last Admin: 02/23/25 08:48 Dose: 1,000 mcg Documented By: TUTU Folic Acid (Folic Acid 1 Mg Tablet) 1 mg PO DAILY [facility] Last Admin: 02/23/25 08:48 Dose: 1 mg Documented By: TUTU Gabapentin (Gabapentin 600 Mg Tablet) 600 mg PO TID [facility] Last Admin: 02/23/25 08:48 Dose: 600 mg Documented By: TUTU Lactated Ringer's (Lr) 1,000 mls @ 80 mls/hr IVCONT .[id number] [facility] Last Admin: 02/23/25 04:08 Dose: 80 mls/hr Documented By: LISSETT Losartan Potassium (Losartan Potassium 25 Mg Tablet) 25 mg PO DAILY [facility]; Protocol Last Admin: 02/23/25 08:48 Dose: 25 mg Documented By: TUTU Magnesium Hydroxide (Milk Of Magnesia 30 Ml Oral.Susp) 30 ml PO DAILY PRN PRN Reason: Constipation Melatonin (Melatonin 3 Mg Tablet) 6 mg PO BEDTIME PRN PRN Reason: Insomnia Naloxone HCl (Naloxone Hcl 0.4 Mg/Ml Vial) 0.04 mg IVPUSH Q5M PRN PRN Reason: Excessive sedation or RR < 8 Omeprazole (Omeprazole 40 Mg Capsule.Dr) 40 mg PO BID@0630,1630 [facility] Last Admin: 02/23/25 06:18 Dose: 40 mg Documented By: LISSETT Oxycodone HCl (Oxycodone Hcl Immed Release 5 Mg Tablet) 5 mg PO Q6H PRN PRN Reason: Pain, Severe (Pain Scale 7-10) Last Admin: 02/23/25 04:09 Dose: 5 mg Documented By: LISSETT Pharmacy Consult (Consult Rx Etoh Phenob Im/Po) 1 each MISCELLANE ONCE PRN; Protocol PRN Reason: Consult order Phenobarbital (Phenobarbital 30 Mg Tablet) 30 mg PO BID [facility] Stop: 02/24/25 21:01 Last Admin: 02/23/25 08:48 Dose: 30 mg Documented By: TUTU Phenobarbital (Phenobarbital 15 Mg Tablet) 15 mg PO DAILY [facility] Stop: 02/26/25 09:01 Pyridoxine HCl (Pyridoxine Hcl (Vitamin B6) 50 Mg Tablet) 50 mg PO DAILY [facility] Last Admin: 02/23/25 08:48 Dose: 50 mg Documented By: TUTU Sodium Chloride (0.9 % Sodium Chloride Flush 3 Ml Syringe) 3 ml IVFLUSH QSHIFT [facility] Last Admin: 02/23/25 07:26 Dose: Not Given Documented By: TUTU Non-Admin Reason: IV Running Thiamine HCl (Thiamine Hcl 100 Mg Tablet) 100 mg PO BID [facility] Last Admin: 02/23/25 08:48 Dose: 100 mg Documented By: TUTU Trazodone HCl (Trazodone Hcl 100 Mg Tablet) 100 mg PO BEDTIME [facility] Last Admin: 02/22/25 22:21 Dose: 100 mg Documented By: LISSETT Venlafaxine HCl (Venlafaxine Hcl Er 75 Mg Cap.Er.24h) 75 mg PO DAILY [facility] Last Admin: 02/23/25 08:48 Dose: 75 mg Documented By: TUTU Labs 02/23/25 07:01 02/23/25 07:01 Labs: Laboratory Results - last 24 hr 02/22/25 02/23/25 09:59 07:01 MCV 92.0 MCH 30.7 MCHC 33.3 RDW 19.5 H Plt Count 363 MPV 9.7 Absolute Nucleated RBC 0.000 Nucleated RBC % (auto) 0.0 Anion Gap 12 Estim Creat Clear Calc 85.0 Estimated GFR > 60 Random Glucose 81 Calcium 7.8 L Blood Type O Positive Antibody Screen NEGATIVE Crossmatch See Detail Assessment and Plan (1) Alcohol use disorder: Status: Acute Plan 54M PMH etoh dependence, vte on eliquis, CAD, chf with reduced EF presented with fall, found to be in withdrawal, and new small PE, now complicated by BRBPR Syncope due to alcohol dependence with withdrawal Continue phenobarb, CIWA Right lower lobe pulmonary embolism, recurrent restarting eliquis Bright red blood per rectum s/p egd/colonsocpy 02/22/25 (see report) continue ppi, restarting eliquis today, monitor hgb Mild acute hypernatremia Resolved hfref stable, coreg, losartan cad elqiuis DVT prophylaxis-eliquis Full code reason for continued hospitalization: monitoring for tolerance of AC Quality Stroke Does the patient have a stroke diagnosis?: No VTE Prior VTE?: No VTE Risk Level:: Medical - moderate - high VTE Device Contraindication: N/A - Device Ordered VTE Drug Contraindication: N/A - Med Ordered
--- NOTE | 2025-02-23 16:03 | MHC.CM.PN ---
Per rounds, pt not ready to DC, anticipate he will be ready on 02/14, PT rec STR, referrals out and some accepting.
[2025-02-23] MEDS: 0.9 % Sodium Chloride Flush 3 ML SYRINGE IVFLUSH (20:12)
[2025-02-24 03:27] VITALS: BP 122/82; PULSE 67; RESP 18; TEMP 36.6; O2SAT 100
[2025-02-24] MEDS: oxyCODONE HCl Immed Release 5 MG TABLET PO ×2 (05:48→12:14)
[2025-02-24 07:28] LABS: Hematocrit 28.5 % (42.0-52.0); Hemoglobin 9.3 g/dl (14.0-18.0); Mean Corpuscular HGB Conc 32.6 g/dl (31.0-36.0); Mean Corpuscular Hemoglobin 30.3 pg (27.0-33.0); Mean Corpuscular Volume 92.8 fL (80.0-98.0); NRBC Abs Auto 0.000 X10*3/uL (0.0-0.012); NRBC Pct Auto 0.0 /100WBC (0.0-0.2); Platelet Count 306 X10*3/uL (160-400); Red Blood Count 3.07 X10*6/uL (4.60-5.80); White Blood Count 6.6 X10*3/uL (4.8-10.8)
[2025-02-24 07:43] LABS: Anion Gap 12 (12-20); Blood Urea Nitrogen 5 mg/dL (9-16); Calcium 8.2 mg/dL (8.4-10.2); Carbon Dioxide 25 mmol/L (22-29); Chloride 107 mmol/L (96-108); Creatinine Clr Calc Pharmacy 79.4; Estimated Glomerular Filt Rate > 60; Potassium 3.9 mmol/L (3.3-5.1); Sodium 140 mmol/L (135-145)
[2025-02-24 08:00] VITALS: BP 143/94; PULSE 72; RESP 20; TEMP 36.4; O2SAT 95
[2025-02-24] MEDS: 0.9 % Sodium Chloride Flush 3 ML SYRINGE IVFLUSH (09:54)
[2025-02-24 09:56] VITALS: BP 138/88; PULSE 82
[2025-02-24] MEDS: Venlafaxine HCl ER 75 MG CAP.ER.24H PO (09:56)
[2025-02-24 09:57] VITALS: BP 138/88
--- NOTE | 2025-02-24 10:17 | HO.PM.IMPN ---
Subjective Subjective Date of Service: 02/24/25 Interval History: mild blood on tissue Physical Exam Vital Signs: Vital Signs: Last Vital Signs Temp 97.6 F 02/24/25 08:00 Pulse 82 02/24/25 09:56 Resp 20 02/24/25 08:00 BP 138/88 02/24/25 09:57 Pulse Ox 95 02/24/25 08:00 O2 Del Method Room Air 02/24/25 08:00 BMI result Body Mass Index 20.9 General: AO X 3, no acute distress Resp: CTA bilateral, no accessory muscles used CVS: S1,S2,RRR GI: soft, non tender, non distended Neuro: motor grossly intact, alert Psych: appropriate affect, appropriate insight Objective Data Active Medications Acetaminophen (Acetaminophen 325 Mg Tablet) 650 mg PO Q6H PRN PRN Reason: Pain, Mild 1-3,fever,headache Last Admin: 02/24/25 09:59 Dose: 650 mg Documented By: GIORGIO Apixaban (Apixaban 5 Mg Tablet) 5 mg PO BID [facility] Last Admin: 02/24/25 09:56 Dose: 5 mg Documented By: GIORGIO Calcium Carbonate (Calcium Carbonate 750 Mg Tab.Chew) 750 mg PO Q4H PRN PRN Reason: Heartburn Carvedilol (Carvedilol 6.25 Mg Tablet) 6.25 mg PO BID [facility]; Protocol Last Admin: 02/24/25 09:56 Dose: 6.25 mg Documented By: GIORGIO Cyanocobalamin (Cyanocobalamin (Vitamin B-12) 1,000 Mcg Tablet) 1,000 mcg PO DAILY [facility] Last Admin: 02/24/25 09:56 Dose: 1,000 mcg Documented By: GIORGIO Folic Acid (Folic Acid 1 Mg Tablet) 1 mg PO DAILY [facility] Last Admin: 02/24/25 09:56 Dose: 1 mg Documented By: GIORGIO Gabapentin (Gabapentin 600 Mg Tablet) 600 mg PO TID [facility] Last Admin: 02/24/25 09:55 Dose: 600 mg Documented By: GIORGIO Losartan Potassium (Losartan Potassium 25 Mg Tablet) 25 mg PO DAILY [facility]; Protocol Last Admin: 02/24/25 09:57 Dose: 25 mg Documented By: GIORGIO Magnesium Hydroxide (Milk Of Magnesia 30 Ml Oral.Susp) 30 ml PO DAILY PRN PRN Reason: Constipation Melatonin (Melatonin 3 Mg Tablet) 6 mg PO BEDTIME PRN PRN Reason: Insomnia Naloxone HCl (Naloxone Hcl 0.4 Mg/Ml Vial) 0.04 mg IVPUSH Q5M PRN PRN Reason: Excessive sedation or RR < 8 Omeprazole (Omeprazole 40 Mg Capsule.Dr) 40 mg PO BID@0630,1630 [facility] Last Admin: 02/24/25 05:48 Dose: 40 mg Documented By: TANIA Oxycodone HCl (Oxycodone Hcl Immed Release 5 Mg Tablet) 5 mg PO Q6H PRN PRN Reason: Pain, Severe (Pain Scale 7-10) Last Admin: 02/24/25 05:48 Dose: 5 mg Documented By: TANIA Pharmacy Consult (Consult Rx Etoh Phenob Im/Po) 1 each MISCELLANE ONCE PRN; Protocol PRN Reason: Consult order Phenobarbital (Phenobarbital 30 Mg Tablet) 30 mg PO BID [facility] Stop: 02/24/25 21:01 Last Admin: 02/24/25 09:55 Dose: 30 mg Documented By: GIORGIO Phenobarbital (Phenobarbital 15 Mg Tablet) 15 mg PO DAILY [facility] Stop: 02/26/25 09:01 Pyridoxine HCl (Pyridoxine Hcl (Vitamin B6) 50 Mg Tablet) 50 mg PO DAILY [facility] Last Admin: 02/24/25 09:55 Dose: 50 mg Documented By: GIORGIO Sodium Chloride (0.9 % Sodium Chloride Flush 3 Ml Syringe) 3 ml IVFLUSH [facility] Last Admin: 02/24/25 09:54 Dose: 3 ml Documented By: GIORGIO Thiamine HCl (Thiamine Hcl 100 Mg Tablet) 100 mg PO BID [facility] Last Admin: 02/24/25 09:56 Dose: 100 mg Documented By: GIORGIO Trazodone HCl (Trazodone Hcl 100 Mg Tablet) 100 mg PO BEDTIME [facility] Last Admin: 02/23/25 20:08 Dose: 100 mg Documented By: TANIA Venlafaxine HCl (Venlafaxine Hcl Er 75 Mg Cap.Er.24h) 75 mg PO DAILY [facility] Last Admin: 02/24/25 09:56 Dose: 75 mg Documented By: GIORGIO Labs 02/24/25 07:07 02/24/25 07:07 Labs: Laboratory Results - last 24 hr 02/24/25 07:07 MCV 92.8 MCH 30.3 MCHC 32.6 RDW 19.3 H Plt Count 306 MPV 9.7 Absolute Nucleated RBC 0.000 Nucleated RBC % (auto) 0.0 Anion Gap 12 Estim Creat Clear Calc 79.4 Estimated GFR > 60 Random Glucose 86 Calcium 8.2 L Assessment and Plan (1) Alcohol use disorder: Status: Acute Plan 54M PMH etoh dependence, vte on eliquis, CAD, chf with reduced EF presented with fall, found to be in withdrawal, and new small PE, now complicated by BRBPR Syncope due to alcohol dependence with withdrawal Continue phenobarb, CIWA Right lower lobe pulmonary embolism, recurrent restarting eliquis Bright red blood per rectum s/p egd/colonsocpy 02/22/25 (see report) continue ppi, restarting eliquis 02/23/25, monitor hgb Mild acute hypernatremia Resolved hfref stable, coreg, losartan cad elqiuis DVT prophylaxis-eliquis Full code reason for continued hospitalization: monitoring for tolerance of AC Quality Stroke Does the patient have a stroke diagnosis?: No VTE Prior VTE?: No VTE Risk Level:: Medical - moderate - high VTE Device Contraindication: N/A - Device Ordered VTE Drug Contraindication: N/A - Med Ordered
--- NOTE | 2025-02-24 10:22 | P.DS_ITS ---
DS: Providers Provider Date of Service: 02/24/25 Date of admission: 02/20/25 08:25 Date of discharge: 02/24/25 Primary care physician: Amarilis Javier MD Consults: 02/20/25 11:56 Addiction Medicine Provider Routine Consulting Provider: Addiction Covering Reason for consultation: alcohol abuse and dependence 02/21/25 06:43 Consult to Gastroenterology Routine Consulting Provider: Madeleine Kumari Reason for consultation: GI bleed Has provider been notified: No 02/21/25 14:24 Consult to Cardiology Routine Consulting Provider: [facility] Reason for consultation: anasthesia requesting preop eval for egd/colon Has provider been notified: Yes 02/21/25 16:42 Inpt - Recovery Team Routine Comment: Reason for consultation: JAYLEN eval DS: Diagnosis Discharge Diagnosis (1) Alcohol use disorder: Status: Acute DS: Summary Hospital Course Hospital Course: from initial hpi: 54 yo M with alcohol abuse and dependence, prior VTE on Eliquis who presents to the ED after he was found down on the ground at home by his daughter. The history is obtained from the ED physician. 54-year-old alcoholic with history of DVT on Eliquis coming in with dizziness and a syncopal episode that occurred at home in the bathroom. Was found down on the ground by his daughter. Found to have a right lower lobe pulmonary embolism on CTA without evidence of heart strain. Pt is seen and examined around 830 AM. He is asleep and not participatory in the interview. He is oriented to self and location but does not answer other questions. hospital course: Patient was admitted for syncope due to alcohol dependence with withdrawal. Was treated with phenobarbital and withdrawal resolved. For right lower lobe pulmonary embolism recurrent was treated with apixaban. For bright red blood per rectum patient underwent EGD and colonoscopy on 02/22/2025, showed hiatal hernia, Schatzki's ring, erosive esophagitis, duodenitis, diverticulosis, colon polyps x2, internal hemorrhoids. Recommendations were to restart anticoagulation, high-dose PPI follow-up biopsies, avoid alcohol, avoid strain of stool. On restarting Eliquis patient had minimal bleeding, aspirin will be held and we will continue with apixaban. Patient transfused 1 unit during hospitalization hemoglobin remained stable. For mild acute hypernatremia this resolved. For chronic systolic CHF was continued on Coreg and losartan. For coronary artery disease was continued on Eliquis. Due to debility patient was seen by physical therapy recommended short-term rehab to which patient will be discharged. He is expected to require less than 30 days. Time Attestation Discharge Coordination Time (in mins): 34 Quality: Safe Use of Opioids Does Pt have an Active Cancer Diagnosis on the Problem List?: No Quality: Stroke Does the patient have a stroke diagnosis?: No Physical Exam Vital Signs: Vital Signs: Last Vital Signs Temp 97.6 F 02/24/25 08:00 Pulse 82 02/24/25 09:56 Resp 20 02/24/25 08:00 BP 138/88 02/24/25 09:57 Pulse Ox 95 02/24/25 08:00 O2 Del Method Room Air 02/24/25 08:00 BMI result Body Mass Index 20.9 General: AO X 3, no acute distress Resp: CTA bilateral, no accessory muscles used CVS: S1,S2,RRR GI: soft, non tender, non distended Neuro: motor grossly intact, alert Psych: appropriate affect, appropriate insight DS: Data Data Completed and Pending Pending studies at discharge: Pending at discharge 02/22/25 13:26 Surgical [PTH] Routine Labs on day of discharge: Laboratory Results - last 24 hr 02/24/25 07:07 WBC 6.6 RBC 3.07 L Hgb 9.3 L Hct 28.5 L MCV 92.8 MCH 30.3 MCHC 32.6 RDW 19.3 H Plt Count 306 MPV 9.7 Absolute Nucleated RBC 0.000 Nucleated RBC % (auto) 0.0 Sodium 140 Potassium 3.9 Chloride 107 Carbon Dioxide 25 Anion Gap 12 BUN 5 L Creatinine 0.91 Estim Creat Clear Calc 79.4 Estimated GFR > 60 Random Glucose 86 Calcium 8.2 L Discharge Plan Discharge Anticipated Discharge Date/Time: 02/24/25 10:18 Patient Disposition: Xfer SNF Discharge Diagnosis: syncope, etoh, pe, gi bleed Referrals: [facility] [Outside] - 1 Week Amarilis Lazaro MD [Primary Care Provider, Medical] - 1 Week Madeleine Kumari MD [Physician, Gastroenterology] - 1 Week Discharge Medications: New omeprazole 40 mg Capsule,Delayed Release(Dr/Ec) 40 mg PO BID@0630,1630 Qty: 0 0RF Continued carvedilol 6.25 mg tablet 6.25 mg PO BID venlafaxine 75 mg capsule,extended release 24hr 75 mg PO DAILY gabapentin 600 mg tablet 600 mg PO TID trazodone 100 mg tablet 100 mg PO BEDTIME losartan 25 mg tablet 25 mg PO DAILY thiamine HCl (vitamin B1) 100 mg tablet 100 mg PO BID folic acid 1 mg tablet 1 mg PO DAILY Eliquis 5 mg tablet 5 mg PO BID cyanocobalamin (vitamin B-12) 1,000 mcg tablet 1,000 mcg PO DAILY acetaminophen 500 mg tablet 1,000 mg PO TID PRN (Reason: moderate pain) pyridoxine (vitamin B6) 50 mg tablet 50 mg PO DAILY Discontinued aspirin 81 mg tablet,delayed release (DR/EC) 81 mg PO DAILY Discharge Orders: Discharge Order (Routine); Ordered 02/24/25 Ordered By: Beck Galeas Diet: Advance to usual diet Activity on Discharge: As tolerated Stand Alone Forms: Patient Portal Discharge page Print Language: Hungarian Care Plan Goals: recovery Health Concerns: pe, gi bleed, etoh Plan of Treatment: high dose ppi, follow up with gastroenterology, nagi, stop asa avoid etoh Assessment: see above
--- NOTE | 2025-02-24 11:24 | MHC.CM.PN ---
Second IMM given 02/24. Pt is medically cleared for discharge to [facility] [place], he will transport there via BLS/[facility] today. Pt aware and in agreement with discharge plan.
[2025-02-24 12:00] VITALS: BP 149/95; PULSE 82; RESP 20; TEMP 36.3; O2SAT 100
== END 2025-02-24 15:33 | disposition skilled nursing facility (03) | DRG 175 ==
LOC: HO.ED 08:30 → HO.EDOVER 08:44 → HO.IMC 14:43
PROVIDERS: Family Medicine; Internal Medicine Gastroenterology; Admitting Provider Internal Medicine; Emergency Provider Emergency Medicine; PCP Internal Medicine; Visit Provider Internal Medicine
PROC: 0DB68ZX Excision of Stomach, Via Natural or Artificial Opening Endoscopic, Diagnostic (ICD-10-PCS; principal; 2025-02-22 13:30)
DX: I26.99 Other pulmonary embolism without acute cor pulmonale (principal); K22.11 Ulcer of esophagus with bleeding; K29.81 Duodenitis with bleeding; K57.31 Diverticulosis of large intestine without perforation or abscess with bleeding; E87.0 Hyperosmolality and hypernatremia; D62 Acute posthemorrhagic anemia; F10.239 Alcohol dependence with withdrawal, unspecified; I50.22 Chronic systolic (congestive) heart failure; I25.10 Atherosclerotic heart disease of native coronary artery without angina pectoris; W19.XXXA Unspecified fall, initial encounter; Y90.8 Blood alcohol level of 240 mg/100 ml or more; R53.81 Other malaise; F10.229 Alcohol dependence with intoxication, unspecified; K44.9 Diaphragmatic hernia without obstruction or gangrene; K22.2 Esophageal obstruction; K63.5 Polyp of colon; K64.0 First degree hemorrhoids; Z87.891 Personal history of nicotine dependence; Z79.01 Long term (current) use of anticoagulants; Z79.899 Other long term (current) drug therapy
CPT/HCPCS: 36415; 70450; 71275; 80048; 80053; 80076; 80307; 82550; 83735; 84484; 85025; 85027; 85610; 86850; 86900; 86901; 86923; 88305; 88313; 88342; 93005; 93306; 93971; 97162; 99285; J1650; J2003; J2470; J2560; J2704; J2916; J3475; J7120; P9016; Q9957; Q9967; S9485

== ENCOUNTER → 2025-02-20 01:42 | Outpatient (BNV) | payer MEDICARE, MEDICAID, SELFPAY | PROVIDERS: Admitting Provider Internal Medicine; Emergency Provider Emergency Medicine; Visit Provider Internal Medicine | DX: F10.90 Alcohol use, unspecified, uncomplicated (principal); R42 Dizziness and giddiness; W19.XXXA Unspecified fall, initial encounter | CPT/HCPCS: 93010 ==

== ENCOUNTER → 2025-02-20 05:26 | Outpatient (BNV) | payer MEDICARE, MEDICAID, SELFPAY | PROVIDERS: Emergency Provider Emergency Medicine; Visit Provider Radiology Vascular & Interventional Radiology | DX: R06.00 Dyspnea, unspecified (principal); J98.4 Other disorders of lung; M79.661 Pain in right lower leg | CPT/HCPCS: 70450; 71275 ==

== ENCOUNTER 2025-02-20 08:25 | Outpatient (BNV) | payer MEDICARE, MEDICAID, SELFPAY | END 2025-02-21 15:00 | PROVIDERS: Admitting Provider Internal Medicine; Emergency Provider Emergency Medicine; Visit Provider Internal Medicine | DX: I42.2 Other hypertrophic cardiomyopathy (principal) | CPT/HCPCS: 93306 ==

== ENCOUNTER → 2025-02-20 08:25 | Outpatient (BNV) | payer MEDICARE, MEDICAID, SELFPAY | PROVIDERS: Admitting Provider Internal Medicine; Emergency Provider Emergency Medicine; Visit Provider Nurse Practitioner Psychiatric/Mental Health | DX: F10.90 Alcohol use, unspecified, uncomplicated (principal) | CPT/HCPCS: 99232 ==

== ENCOUNTER → 2025-02-20 08:25 | Outpatient (BNV) | payer MEDICARE, MEDICAID, SELFPAY | PROVIDERS: Admitting Provider Internal Medicine; Emergency Provider Emergency Medicine; Visit Provider Internal Medicine Gastroenterology | DX: K92.2 Gastrointestinal hemorrhage, unspecified (principal); K22.2 Esophageal obstruction; K20.90 Esophagitis, unspecified without bleeding; K29.80 Duodenitis without bleeding; D12.4 Benign neoplasm of descending colon; D12.5 Benign neoplasm of sigmoid colon; K57.30 Diverticulosis of large intestine without perforation or abscess without bleeding; K64.0 First degree hemorrhoids | CPT/HCPCS: 43239; 45381; 45385; 99223; 99232 ==

== ENCOUNTER → 2025-02-20 08:25 | Outpatient (BNV) | payer MEDICARE, MEDICAID, SELFPAY | PROVIDERS: Admitting Provider Internal Medicine; Emergency Provider Emergency Medicine; Visit Provider Internal Medicine | DX: I25.10 Atherosclerotic heart disease of native coronary artery without angina pectoris (principal); I26.99 Other pulmonary embolism without acute cor pulmonale; F10.929 Alcohol use, unspecified with intoxication, unspecified; Z01.810 Encounter for preprocedural cardiovascular examination | CPT/HCPCS: 99223 ==

== ENCOUNTER → 2025-02-20 08:25 | Outpatient (BNV) | payer MEDICARE, MEDICAID, SELFPAY | PROVIDERS: Admitting Provider Internal Medicine; Emergency Provider Emergency Medicine; Visit Provider Family Medicine | DX: F10.90 Alcohol use, unspecified, uncomplicated (principal) | CPT/HCPCS: 99223; 99232; 99239; 99499 ==

== ENCOUNTER 2025-03-09 09:36 | Inpatient (IN) | payer MEDICARE, MEDICAID, SELFPAY ==
[2025-03-09] VITALS (7 sets, daily range): BP systolic 105–139; BP diastolic 73–100; PULSE 72–95; RESP 15–18; TEMP 36.5; O2SAT 97–100; BMI 21.9
--- NOTE | ~2025-03-09 | CT_ITS ---
EXAMINATION: CT HEAD WITHOUT CONTRAST CLINICAL INFORMATION: Fall, ethanol use COMPARISON: February 20, 2025 TECHNIQUE: Contiguous axial imaging was performed from the skull base to vertex without intravenous administration of contrast. This CT examination was performed using dose optimization techniques as appropriate, variously including the following: *Automated exposure control *Adjustment of mA and/or kV according to patient size (this includes techniques or standardized protocols for targeted exams where dose is matched to indication/reason for exam; i.e. extremities or head) *Use of iterative reconstruction technique DLP: 1238 mGY*cm FINDINGS: There is no acute ischemic change. There is no intracranial hemorrhage. There is no mass-effect or midline shift. Moderate frontotemporal atrophy is noted. Basal cisterns and ventricles are within normal limits for cerebral volume. Orbits are symmetrical and unremarkable. Paranasal sinuses and mastoid air cells are pneumatized. There are no bony abnormalities. CT/CT head/brain wo IV con IMPRESSION: No acute intracranial abnormality. Moderate frontotemporal atrophy. Electronically signed by: Geo Bowling MD 03/09/2025 12:58 PM EDT
--- NOTE | ~2025-03-09 | XR_ITS ---
EXAMINATION: XR FOOT, RIGHT CLINICAL INFORMATION: trauma, recent surgery COMPARISON: None available. TECHNIQUE: AP, lateral, and oblique views of the right foot. FINDINGS: There is a K wire fixating the hallux, traversing the interphalangeal joint and first MTP joint. There is an acute fracture of the second digit, proximal phalanx, involving the proximal metaphysis. There is mild comminution. There is minimal displacement and minimal angulation. There appears to be an acute fracture of the third metatarsal distal metaphysis, minimally displaced. There are old healed appearing fractures involving the proximal second and third metatarsals. There are associated tarsometatarsal arthritic changes. No additional fractures or malalignment. There is normal plantar arch. The midfoot and hindfoot appear unremarkable. There are soft tissue vascular calcifications present. There is soft tissue swelling of the dorsal forefoot. XR/XR foot RT min 3V IMPRESSION: 1. Acute mildly comminuted fracture of the second digit, proximal phalanx, involving the proximal metaphysis. There is minimal displacement and minimal angulation. There appears to be extension to the MTP joint. 2. Acute appearing fracture of the distal metaphysis of the third metatarsal. 3. K wire fixation of the hallux. 4. Additional chronic findings as discussed. Electronically signed by: Taz Shaw MD 03/09/2025 12:48 PM EDT
--- NOTE | 2025-03-09 11:18 | ECG_ITS ---
Test Reason : weakness Blood Pressure : */* mmHG Vent. Rate : 71 BPM Atrial Rate : 71 BPM P-R Int : 178 ms QRS Dur : 90 ms QT Int : 428 ms P-R-T Axes : 47 33 48 degrees QTcB Int : 465 ms Normal sinus rhythm Normal ECG When compared with ECG of 20-Feb-2025 01:42, No significant change was found Referred By: Lc Duron Electronically Signed By: SIMEON LO MD
--- NOTE | 2025-03-09 11:38 | ED.GENADULT ---
HPI - General Adult General Chief complaint: General Medical Stated complaint: R FOOT INJURY ETOH Time Seen by Provider: 03/09/25 09:37 Source: patient, RN notes reviewed and old records reviewed Mode of arrival: EMS Limitations: other (acute alcohol intoxication) History of Present Illness ED Provider: Domi HPI narrative: 54-year-old male with past medical history significant for pulmonary embolism on Eliquis, recent admission for a GI bleed, alcohol use disorder, recent right great toe surgery presents for evaluation after a fall. The patient reports that he fell just prior to arrival. He reports he lost his balance due to ?drinking alcohol. ? He reports pain to his right great toe pain He states that he had surgery with hardware in place for fixation about 3 weeks ago. He reports that the hardware is due to be removed next week He thinks that the surgery was performed at [facility]. He does not remember if he hit his head or not but denies any head pain or loss of consciousness. He only reports 8/10 pain to the right foot and great toe He did sustain a laceration to the right great toe during the fall Bleeding is controlled The patient reports that he is still having bright red blood per rectum but denies abdominal pain Related Data Home Medications ?Medication ?Instructions ?Recorded ?Confirmed acetaminophen 500 mg tablet 1,000 mg PO TID PRN moderate pain 02/20/25 03/09/25 apixaban 5 mg tablet (Eliquis) 5 mg PO BID 02/20/25 03/09/25 carvedilol 6.25 mg tablet 6.25 mg PO BID 02/20/25 03/09/25 cyanocobalamin (vitamin B-12) 1,000 mcg PO DAILY 02/20/25 03/09/25 1,000 mcg tablet folic acid 1 mg tablet 1 mg PO DAILY 02/20/25 03/09/25 gabapentin 600 mg tablet 600 mg PO TID 02/20/25 03/09/25 losartan 25 mg tablet 25 mg PO DAILY 02/20/25 03/09/25 pyridoxine (vitamin B6) 50 mg 50 mg PO DAILY 02/20/25 03/09/25 tablet thiamine HCl (vitamin B1) 100 mg 100 mg PO BID 02/20/25 03/09/25 tablet trazodone 100 mg tablet 100 mg PO BEDTIME 07/15/25 08/01/25 venlafaxine 75 mg capsule,extended 75 mg PO DAILY 02/20/25 03/09/25 release 24 hr Previous Rx's ?Medication ?Instructions ?Recorded omeprazole 40 mg capsule,delayed 40 mg PO BID@0630,1630 #0 caps 02/24/25 release Allergies Allergy/AdvReac Type Severity Reaction Status Date / Time No Known Allergies Allergy Verified 03/09/25 09:49 Review of Systems Constitutional: Constitutional: Denies body ache(s), Denies chills, Denies fever(s) and Reports frequent falls Eyes: Eyes: Denies blurry vision and Denies exophthalmos ENT: Denies dizziness and Denies dry mouth Cardiovascular: Cardiovascular: Denies chest pain and Denies dyspnea on exertion Respiratory: Respiratory: Denies cough and Denies dyspnea on exertion Gastrointestinal: Gastrointestinal: Denies abdominal pain and Reports hematochezia Musculoskeletal: Musculoskeletal: Reports arthralgias, Reports joint swelling and Reports limited range of motion Integumentary/Breasts: Skin/Breast: Denies rash Neurologic: Denies dizziness and Reports frequent falls Psychiatric: Psychiatric: Denies anxiety [facility] Past Medical History Medical History (Updated 03/09/25 @ 14:45 by Lc Duron) Atherosclerotic cardiovascular disease Social History Social History Household Members: Family Housing: House Are you a primary respiratory care faculty to a significant other at home: No Do you presently have visiting nurse or other home services: No Alcohol intake: current Alcohol intake frequency: 3 or more drinks per day Alcohol type: hard liquor Patient Tobacco Use Status: Never used Tobacco Tobacco use type: Cigarette Years Smoked: 40 years Smoked in Last 30 Days: No Second Hand Smoke Exposure: No Use of substances other than those prescribed or required for medical reasons: Yes Substance Use Type: Marijuana Substance Use Frequency: Occasionally Advance Directives: No Advance Directives Information Provided: Yes service: Yes Physical Exam ED Vital Signs: Vital Signs - 24 hr 03/09/25 09:46 03/09/25 15:49 03/09/25 19:53 Temperature 97.7 F 97.7 F Pulse Rate 78 82 86 Respiratory Rate 16 16 18 Blood Pressure 117/90 H 124/89 139/100 H Pulse Oximetry 98 100 98 Oxygen Delivery Method Room Air Room Air Room Air 03/09/25 20:00 Temperature Pulse Rate 95 Respiratory Rate Blood Pressure 139/100 H Pulse Oximetry Oxygen Delivery Method BMI result Body Mass Index 21.9 Const General: comfortable, no acute distress, alert and awake Orientation/consciousness: patient oriented x3 HENMT Head: Yes normocephalic and Yes atraumatic Eyes Eyelids: Yes eyelids normal Conjunctivae: conjunctivae normal Sclerae: sclerae normal Corneas: corneas normal Pupils: Equal, round and reactive pupils present EOM: EOMs intact bilaterally Neck Neck: Yes full ROM Resp Effort & Inspection: normal respiratory effort, able to speak in complete sentences and not labored Cardio Rate: regular rate Rhythm: regular rhythm GI Inspection: No distended Palpation (GI): Soft to palpation, not firm, nontender, no guarding and not rigid Skin General skin exam: elasticity normal Neuro General: patient oriented x3 Cranial nerves: Yes Equal, round and reactive pupils present and Yes Bilaterally intact EOM present Cognition (Neuro): normal cognition Extrem Other: Patient has externa hardware in place to the right great toe. There is a laceration along the plantar surface of the right great toe at the MTP joint. Wound he is controlled. Laceration appears to be approximately 1 cm in length Psych Appearance: disheveled Course Reevaluation(s) Reevaluation #1: I was able to access records from [facility] with the patient did not fact have known fracture of the 2nd proximal phalanx and 3rd metatarsal. These are not new fractures. Time: 13:05 Reevaluation #2: After the wound was appropriately cleaned, he does have a healing wound to the plantar surface of the right foot, however it is only about 0.5-1 cm area that is open and bleeding minimally. See procedure note for wound repair. I also spoke to the patient's daughter, Nichole who is his healthcare proxy. She reports that the patient has been falling frequently, continuing to abuse alcohol. She is concerned due to his frequent falls and she has 2 small children, as young as 4-month-old at home and the patient nearly fell on the youngest child this afternoon. The patient agrees to consideration for detox as well as physical therapy rehabilitation Time: 13:52 Reevaluation #3: I ordered a repeat H and H to ensure the patient does not have significant GI bleeding. His vital signs have remained stable Time: 18:05 Additional Reevaluation(s): Patient beginning to show signs of alcohol withdrawal which is expected as he has been here for several hours. He was loaded with phenobarb given his significant withdrawal in his last admission. His hemoglobin did drop by 0.8 from 11.8-11.0. He has not had any bloody bowel movements but was guaiac positive on exam. Discussed with the hospitalist who will admit the patient for treatment of alcohol withdrawal and GI blade on anticoagulation Medications Administered Generic Name Dose Route Start Last Admin Trade Name Carlos PRN Reason Stop Dose Admin Acetaminophen 975 mg 03/09/25 19:55 03/09/25 20:00 Acetaminophen 325 Mg Tablet PO 975 mg TID PRN Administration moderate pain Apixaban 5 mg 03/09/25 21:00 03/09/25 20:00 Apixaban 5 Mg Tablet PO 5 mg BID RUBINA Administration Carvedilol 6.25 mg 03/09/25 21:00 03/09/25 20:00 Carvedilol 6.25 Mg Tablet PO 6.25 mg BID RUBINA Administration Protocol Gabapentin 600 mg 03/09/25 21:00 03/09/25 20:00 Gabapentin 600 Mg Tablet PO 600 mg TID RUBINA Administration Thiamine HCl 100 mg 03/09/25 21:00 03/09/25 20:00 Thiamine Hcl 100 Mg Tablet PO 100 mg BID RUBINA Administration Trazodone HCl 100 mg 03/09/25 21:00 03/09/25 20:01 Trazodone Hcl 100 Mg Tablet PO 100 mg BEDTIME RUBINA Administration Discontinued Medications Generic Name Dose Route Start Last Admin Trade Name Carlos PRN Reason Stop Dose Admin Lidocaine HCl 10 ml 03/09/25 12:35 03/09/25 13:57 Lidocaine Hcl 2 % 20 Ml Vial INFILTRATI 03/09/25 12:36 10 ml ONCE ONE Administration Procedures Laceration Laceration 1: Site: lower extremity (Right foot) Side (If applicable): right Size (cm): 1 Description: linear, flap and irregular Depth: simple, single layer Local Anesthetic: lidocaine 1% Amount of anesthesia used (mL): 4 Pre-repair: wound explored, irrigated extensively, deep structures intact and extensive debridement Skin layer closed with: nylon Size (cm): 4-0 Number of sutures: 3 Technique: simple, interrupted Medical Decision Making Medical Decision Making MDM Narrative: 54-year-old male presents for evaluation after a fall. He attributes the fall to alcohol abuse. He reports drinking about 15 nips per day. He has previous external hardware fixation to the right great toe. He has pain to the right foot and great toe with a laceration to this area. Plan for basic labs, EKG, CT scan of the brain and x-ray of the right foot. The patient does report bright red blood per rectum to nursing. He was admitted for a GI bleed recently had a colonoscopy on 02/22/2025 that showed esophagitis as well as hemorrhoids. This is likely the cause of his bleeding. Hemoglobin hematocrit are actually improved by a significant amount compared to his recent admission. Differential Diagnosis Differential Diagnoses: The differential diagnosis associated with the presentation includes Alcohol abuse Acute alcohol intoxication Intracranial hemorrhage Syncope less likely Right foot pain Right great toe fracture Hardware malfunction Admission/Observation Consideration of admission/observation: Escalation of care including admission/observation considered Consult Healthcare Provider Management of the patient was discussed with: Pediatric Cardiologist Orthopedics, Hema Byrd recommends laceration repair and antibiotics given the recent surgery, however no indication for further orthopedic intervention at this time. The patient can follow up with his outpatient orthopedist Lab Data MDM Lab Attestation statement: I reviewed the patient's lab results. No leukocytosis. The patient does have a hemoglobin 11.8 and hematocrit 34.9. However this is significantly improved compared to his recent admission with in his hemoglobin was 8.9 on arrival and told 9.3 upon discharge. 03/09/25 19:41 03/09/25 11:57 Labs: Lab Results 03/09/25 03/09/25 03/09/25 Range/Units 11:46 11:57 18:57 WBC 10.3 (4.8-10.8) X10*3/uL RBC 3.80 L D (4.60-5.80) X10*6/uL Hgb 11.8 L D (14.0-18.0) g/dl Hct 34.9 L D (42.0-52.0) % MCV 91.8 (80.0-98.0) fL MCH 31.1 (27.0-33.0) pg MCHC 33.8 (31.0-36.0) g/dl RDW 20.4 H (11.0-16.0) % Plt Count 265 (160-400) X10*3/uL MPV 9.6 (9.4-12.4) fL Immature Gran % (Auto) 0.3 (0.0-0.4) % Neut % (Auto) 67.8 (45-73) % Lymph % (Auto) 23.3 (20-40) % [place] % (Auto) 5.2 (2-11) % Eos % (Auto) 2.4 (0-4) % Baso % (Auto) 1.0 (0-2) % Lymph # (Auto) 2.4 (1.2-4.9) X10*3/uL [place] # (Auto) 0.5 (0.1-1.2) X10*3/uL Eos # (Auto) 0.3 (0.0-0.4) X10*3/uL Baso # (Auto) 0.1 (0.0-0.2) X10*3/uL Abs Immat Gran (auto) 0.03 (0.00-0.03) X10*3/uL Absolute Neuts (auto) 7.0 (2.0-8.3) x10*3/uL Absolute Nucleated RBC 0.000 (0.0-0.012) X10*3/uL Nucleated RBC % (auto) 0.0 (0.0-0.2) /100WBC PT 15.6 H (10.9-12.4) SEC INR 1.4 H (0.9-1.1) APTT 32.0 (26.7-34.1) SEC Sodium 143 (135-145) mmol/L Potassium 3.5 (3.3-5.1) mmol/L Chloride 105 (96-108) mmol/L Carbon Dioxide 25 (22-29) mmol/L Anion Gap 17 (12-20) BUN 10 (9-16) mg/dL Creatinine 1.44 H (0.5-1.4) mg/dL Estim Creat Clear Calc 52.6 Estimated GFR 51 Random Glucose 94 (60-115) mg/dL Calcium 8.3 L (8.4-10.2) mg/dL Magnesium 1.7 (1.6-2.6) mg/dL Total Bilirubin 0.2 (0.0-1.0) mg/dL AST 66 H (5-37) U/L ALT 43 H (0-40) U/L Alkaline Phosphatase 103 (39-117) U/L Total Protein 6.7 (6.5-8.0) g/dL Albumin 3.7 (3.5-5.0) g/dL Lipase 28 (8-78) U/L Urine Color Yellow Urine Appearance Clear Urine pH 5.5 (5.0-9.0) Ur Specific [place] 1.015 (1.005-1.025) Urine Protein Negative (Neg-Trace) mg/dL Urine Glucose (UA) Negative (Negative) mg/dL Urine Ketones Negative (Negative) mg/dL Urine Blood Negative (Negative) Urine Nitrite Negative (Negative) Ur Leukocyte Esterase Negative (Negative) Urine RBC 0-2 (0-2) /HPF Urine WBC 0-5 (0-5) /HPF Ur Squamous Epith Cells 0-2 (0-2) /HPF Urine Bacteria None Seen (None Seen) Hyaline Casts 0-2 (0-2) /LPF Stool Occult Blood (NEGATIVE) Ethyl Alcohol 335 H* mg/dL Blood Type O Positive Antibody Screen NEGATIVE 03/09/25 03/09/25 Range/Units 19:41 20:20 WBC (4.8-10.8) X10*3/uL RBC (4.60-5.80) X10*6/uL Hgb 11.0 L (14.0-18.0) g/dl Hct 31.9 L (42.0-52.0) % MCV (80.0-98.0) fL MCH (27.0-33.0) pg MCHC (31.0-36.0) g/dl RDW (11.0-16.0) % Plt Count (160-400) X10*3/uL MPV (9.4-12.4) fL Immature Gran % (Auto) (0.0-0.4) % Neut % (Auto) (45-73) % Lymph % (Auto) (20-40) % [place] % (Auto) (2-11) % Eos % (Auto) (0-4) % Baso % (Auto) (0-2) % Lymph # (Auto) (1.2-4.9) X10*3/uL [place] # (Auto) (0.1-1.2) X10*3/uL Eos # (Auto) (0.0-0.4) X10*3/uL Baso # (Auto) (0.0-0.2) X10*3/uL Abs Immat Gran (auto) (0.00-0.03) X10*3/uL Absolute Neuts (auto) (2.0-8.3) x10*3/uL Absolute Nucleated RBC (0.0-0.012) X10*3/uL Nucleated RBC % (auto) (0.0-0.2) /100WBC PT (10.9-12.4) SEC INR (0.9-1.1) APTT (26.7-34.1) SEC Sodium (135-145) mmol/L Potassium (3.3-5.1) mmol/L Chloride (96-108) mmol/L Carbon Dioxide (22-29) mmol/L Anion Gap (12-20) BUN (9-16) mg/dL Creatinine (0.5-1.4) mg/dL Estim Creat Clear Calc Estimated GFR Random Glucose (60-115) mg/dL Calcium (8.4-10.2) mg/dL Magnesium (1.6-2.6) mg/dL Total Bilirubin (0.0-1.0) mg/dL AST (5-37) U/L ALT (0-40) U/L Alkaline Phosphatase (39-117) U/L Total Protein (6.5-8.0) g/dL Albumin (3.5-5.0) g/dL Lipase (8-78) U/L Urine Color Urine Appearance Urine pH (5.0-9.0) Ur Specific [place] (1.005-1.025) Urine Protein (Neg-Trace) mg/dL Urine Glucose (UA) (Negative) mg/dL Urine Ketones (Negative) mg/dL Urine Blood (Negative) Urine Nitrite (Negative) Ur Leukocyte Esterase (Negative) Urine RBC (0-2) /HPF Urine WBC (0-5) /HPF Ur Squamous Epith Cells (0-2) /HPF Urine Bacteria (None Seen) Hyaline Casts (0-2) /LPF Stool Occult Blood POSITIVE (NEGATIVE) Ethyl Alcohol mg/dL Blood Type Antibody Screen External Record Review External record reviewed: Prior outpatient radiology RESULT: Foot Min 3 Views Right Foot Min 3 Views Right Hx of Present Illness: pt coming in from home endorsing having multiple falls recently most recent 2d ago endorsing having HS doesnt remember the fall unkown LOC pt had recent surgery to R foot increasaed dizziness since fall 5 20 foot pain per EMS pt has hardware to R foot vis; Reason: Pain; Clinical Question(s): Fracture COMPARISON: 02/06/2025. FINDINGS: Bony details are obscured by the overlying cast material, especially in the frontal and oblique views. Redemonstrated is a percutaneous pin traversing the first digit through the phalanges into the metatarsal, as seen on the fluoroscopic images from 02/06/2025. Redemonstrated is a slightly impacted fracture of the proximal phalanx of the second toe, as seen on prior radiograph. Subtle fracture of the third metatarsal neck noted.. No arthritic changes. IMPRESSION: Bony details obscured by overlying cast material. Redemonstrated is a percutaneous pin traversing the first digit through the phalanges into the first metatarsal. Redemonstrated is a fracture of the proximal phalanx of the second toe and third metatarsal neck. No definite new fracture seen. WSN: [id number] Ordering Physician: Bella Lama Reason For Exam Pain Signature Line Dictated By: Elisabet Bowser MD Dictated Date/Time: 02/17/25 10:41 p Reviewed By: Elisabet Bowser MD Signed By: Elisabet Bowser MD Signed Date/Time: 02/17/25 10:41 pm Transcribed By: ALDA Transcribed Date/Time: 02/17/25 10:36 pm Discharge Plan Discharge Clinical Impression: Alcohol use disorder, Acute pain of right foot, BRBPR (bright red blood per rectum), Laceration of foot, right Patient Disposition: Admitted As Inpatient Print Language: Luxem[place]ish
[2025-03-09 12:04] LABS: MANUAL DIFF FLAG NO
[2025-03-09 12:04] LABS: INTERNATIONAL NORM RATIO 1.4 (0.9-1.1); Partial Thromboplastin Time 32.0 SEC (26.7-34.1); Prothrombin Time 15.6 SEC (10.9-12.4)
[2025-03-09 12:05] LABS: Hematocrit 34.9 % (42.0-52.0); Hemoglobin 11.8 g/dl (14.0-18.0); Imm Gran Abs Auto 0.03 X10*3/uL (0.00-0.03); Imm Gran Pct Auto 0.3 % (0.0-0.4); Lymphocytes Absolute Auto 2.4 X10*3/uL (1.2-4.9); Mean Corpuscular HGB Conc 33.8 g/dl (31.0-36.0); Mean Corpuscular Hemoglobin 31.1 pg (27.0-33.0); Mean Corpuscular Volume 91.8 fL (80.0-98.0); NRBC Abs Auto 0.000 X10*3/uL (0.0-0.012); NRBC Pct Auto 0.0 /100WBC (0.0-0.2); Platelet Count 265 X10*3/uL (160-400); Red Blood Count 3.80 X10*6/uL (4.60-5.80); White Blood Count 10.3 X10*3/uL (4.8-10.8)
[2025-03-09 12:43] LABS: Alanine Aminotransferase 43 U/L (0-40); Albumin Level 3.7 g/dL (3.5-5.0); Alkaline Phosphatase 103 U/L (39-117); Anion Gap 17 (12-20); Aspartate Amino Transferase 66 U/L (5-37); Blood Urea Nitrogen 10 mg/dL (9-16); Calcium 8.3 mg/dL (8.4-10.2); Carbon Dioxide 25 mmol/L (22-29); Chloride 105 mmol/L (96-108); Creatinine Clr Calc Pharmacy 52.6; Estimated Glomerular Filt Rate 51; Lipase 28 U/L (8-78); Magnesium 1.7 mg/dL (1.6-2.6); Potassium 3.5 mmol/L (3.3-5.1); Sodium 143 mmol/L (135-145); Total Protein 6.7 g/dL (6.5-8.0)
[2025-03-09] MEDS: Lidocaine HCl 2 % 20 ML VIAL 10 ML INFILTRATI (13:57)
--- NOTE | 2025-03-09 16:05 | PC.NURSE ---
Patient changed over into hospital attire, empty nip bottle found in bed with patient, clinical trial educator Stephani and provider Jesus made aware. Security called for safety search. Patient's R foot wound dressed w/ non-stick dressing/kerlix/radha wrap.
--- NOTE | 2025-03-09 17:28 | PC.NURSE ---
Patient's med rec done, Jesus made aware, will order meds
[2025-03-09 19:04] LABS: Appearance Urine Clear; Glucose Urine UA Negative (Negative); PH 5.5 (5.0-9.0); Specific Gravity - Urine 1.015 (1.005-1.025)
--- NOTE | 2025-03-09 19:04 | MHC.EDTECH ---
This automation tech set patient up with his dinner tray as well as collected his urine sample that was needed and sent down to lab.
--- NOTE | 2025-03-09 19:27 | PC.NURSE ---
Called lab to inquire where H&H results are. Elisabte in the lab informed t/w that lab had been collected in the wrong tube so specimen needs to be recollected. GLORIA Cortes to redraw.
[2025-03-09 19:51] LABS: Hematocrit 31.9 % (42.0-52.0); Hemoglobin 11.0 g/dl (14.0-18.0)
--- NOTE | 2025-03-09 19:52 | PHA.MEDREC ---
Pharmacy Consult ? Medication Reconciliation Pharmacy has completed the medication reconciliation. Reviewed med rec done by nursing
[2025-03-09 20:30] LABS: OBS Int Ctl Valid YES; OBS Lot 0224; OBS1 POSITIVE (NEGATIVE)
--- NOTE | 2025-03-09 20:39 | PM.IMHP ---
History of Present Illness Date of Service: 03/09/25 Chief Complaint: Fall 54-year-old male with a past medical history of hypertension, alcohol use disorder, anxiety, depression, recent diagnosis of pulmonary embolism-on Yi presented to the hospital today with a chief complaint of fall. Patient reportedly had a fall at home witnessed by patient's daughter, he tripped and fell onto his knees; denies any pain in his knees. Denies any head strike. Denies any lows of consciousness. Patient mentioned his drinks alcohol on a daily basis about 15 times per day. On also mentions noticing bright red blood per rectum. Denies any lightheadedness or dizziness. Denies any chest pain or palpitations. Denies any urinary symptoms. Review of all other systems is negative except mentioned above ER course: Per ER team, patient had a fall about 3 weeks ago and went to [facility], discharged on a boot, Which patient was not using. Today patient had repeat x-rays of the right foot and noted to have fractures which are similar to the prior x-rays from [facility]. ER team spoke to Orthopedics who mentioned conservative management. Patient also noted to have laceration on the forehead which was sutured in the ER. Orthopedics team suggested p.o. antibiotics for prophylaxis because of the hardware. On labs noted to have elevated creatinine. CT head negative. Stool guaiac was positive as reported by the ER team. No hemorrhoids noted by the ER team during the rectal examination. Patient's hemoglobin is at his baseline around 11. Repeat hemoglobin remained stable. Patient did not have any episodes of bleeding in the ER. Blood pressure is stable. Patient was given phenobarb loading dose. [facility] Medical History (Updated 03/09/25 @ 14:45 by Lc Duron) Atherosclerotic cardiovascular disease Social History Household Members: Family Housing: House Are you a primary insurance healthcare consultant to a significant other at home: No Do you presently have visiting nurse or other home services: No Alcohol intake: current Alcohol intake frequency: 3 or more drinks per day Alcohol type: hard liquor Patient Tobacco Use Status: Never used Tobacco Tobacco use type: Cigarette Years Smoked: 40 years Smoked in Last 30 Days: No Second Hand Smoke Exposure: No Use of substances other than those prescribed or required for medical reasons: Yes Substance Use Type: Marijuana Substance Use Frequency: Occasionally Advance Directives: No Advance Directives Information Provided: Yes service: Yes Meds Allergies Allergy/AdvReac Type Severity Reaction Status Date / Time No Known Allergies Allergy Verified 03/09/25 09:49 Active Medications: Current Medications Acetaminophen (Acetaminophen 325 Mg Tablet) 975 mg PO TID PRN PRN Reason: moderate pain Last Admin: 03/09/25 20:00 Dose: 975 mg Acetaminophen (Acetaminophen 325 Mg Tablet) 650 mg PO Q6H PRN PRN Reason: Pain, Mild 1-3,fever,headache Apixaban (Apixaban 5 Mg Tablet) 5 mg PO BID [facility] Last Admin: 03/09/25 20:00 Dose: 5 mg Carvedilol (Carvedilol 6.25 Mg Tablet) 6.25 mg PO BID [facility]; Protocol Last Admin: 03/09/25 20:00 Dose: 6.25 mg Cephalexin HCl (Cephalexin 500 Mg Capsule) 500 mg PO Q6H [facility] Cyanocobalamin (Cyanocobalamin (Vitamin B-12) 1,000 Mcg Tablet) 1,000 mcg PO DAILY [facility] Folic Acid (Folic Acid 1 Mg Tablet) 1 mg PO DAILY [facility] Gabapentin (Gabapentin 600 Mg Tablet) 600 mg PO TID [facility] Last Admin: 03/09/25 20:00 Dose: 600 mg Losartan Potassium (Losartan Potassium 25 Mg Tablet) 25 mg PO DAILY [facility]; Protocol Omeprazole (Omeprazole 40 Mg Capsule.Dr) 40 mg PO BID@0630,1630 [facility] Pharmacy Consult (Consult Rx Etoh Phenob Im/Po) 1 each MISCELLANE ONCE PRN; Protocol PRN Reason: Consult order Phenobarbital (Phenobarbital 15 Mg Tablet) 45 mg PO BID [facility]; Protocol Stop: 03/11/25 21:01 Phenobarbital (Phenobarbital 15 Mg Tablet) 15 mg PO BID [facility]; Protocol Stop: 03/13/25 21:01 Phenobarbital (Phenobarbital 15 Mg Tablet) 15 mg PO DAILY [facility]; Protocol Stop: 03/15/25 09:01 Phenobarbital Sodium (Phenobarbital Sodium 130 Mg/Ml Im Once) 310 mg IM ONCE ONE; Protocol Stop: 03/09/25 21:01 Phenobarbital Sodium (Phenobarbital Sodium 130 Mg/Ml Vial Im Q3hx2) 230 mg IM Q3H [facility]; Protocol Stop: 03/10/25 03:01 Pyridoxine HCl (Pyridoxine Hcl (Vitamin B6) 50 Mg Tablet) 50 mg PO DAILY [facility] Sodium Chloride (0.9 % Sodium Chloride Flush 3 Ml Syringe) 3 ml IVFLUSH QSHIFT [facility] Thiamine HCl (Thiamine Hcl 100 Mg Tablet) 100 mg PO BID [facility] Last Admin: 03/09/25 20:00 Dose: 100 mg Trazodone HCl (Trazodone Hcl 100 Mg Tablet) 100 mg PO BEDTIME [facility] Last Admin: 03/09/25 20:01 Dose: 100 mg Venlafaxine HCl (Venlafaxine Hcl Er 75 Mg Cap.Er.24h) 75 mg PO DAILY [facility] Home Medications ?Medication ?Instructions ?Recorded ?Confirmed ?Last Taken ?Type acetaminophen 500 mg tablet 1,000 mg PO TID PRN moderate pain 02/20/25 03/09/25 03/08/25 History apixaban 5 mg tablet (Eliquis) 5 mg PO BID 02/20/25 03/09/25 03/08/25 History carvedilol 6.25 mg tablet 6.25 mg PO BID 02/20/25 03/09/25 03/09/25 History cyanocobalamin (vitamin B-12) 1,000 mcg PO DAILY 02/20/25 03/09/25 03/08/25 History 1,000 mcg tablet folic acid 1 mg tablet 1 mg PO DAILY 02/20/25 03/09/25 03/08/25 History gabapentin 600 mg tablet 600 mg PO TID 02/20/25 03/09/25 03/09/25 History losartan 25 mg tablet 25 mg PO DAILY 02/20/25 03/09/25 03/08/25 History pyridoxine (vitamin B6) 50 mg 50 mg PO DAILY 02/20/25 03/09/25 03/09/25 History tablet thiamine HCl (vitamin B1) 100 mg 100 mg PO BID 02/20/25 03/09/25 03/08/25 History tablet trazodone 100 mg tablet 100 mg PO BEDTIME 02/20/25 03/09/25 03/08/25 History venlafaxine 75 mg capsule,extended 75 mg PO DAILY 02/20/25 03/09/25 03/08/25 History release 24 hr Physical Exam Vital Signs and Narrative: Vital Signs: Last Vital Signs Temp 97.7 F 03/09/25 15:49 Pulse 95 03/09/25 20:00 Resp 18 03/09/25 19:53 BP 139/100 H 03/09/25 20:00 Pulse Ox 98 03/09/25 19:53 O2 Del Method Room Air 03/09/25 19:53 BMI result Body Mass Index 21.9 Gen: Appears be in no acute distress HEENT: NCAT, Moist mucosa. Pulmonary: Vesicular breath sounds, fair air entry CVS: Normal S1-S2 Abdomen: BS+, Soft, Nontender Extremities: Warm well perfused; foot laceration-status post sutured. Neuro: Alert and awake. Results Labs 03/09/25 19:41 03/09/25 11:57 Labs: Laboratory Results - last 24 hr 03/09/25 03/09/25 03/09/25 11:46 11:57 18:57 MCV 91.8 MCH 31.1 MCHC 33.8 RDW 20.4 H Plt Count 265 MPV 9.6 Immature Gran % (Auto) 0.3 Neut % (Auto) 67.8 Lymph % (Auto) 23.3 [place] % (Auto) 5.2 Eos % (Auto) 2.4 Baso % (Auto) 1.0 Lymph # (Auto) 2.4 [place] # (Auto) 0.5 Eos # (Auto) 0.3 Baso # (Auto) 0.1 Abs Immat Gran (auto) 0.03 Absolute Neuts (auto) 7.0 Absolute Nucleated RBC 0.000 Nucleated RBC % (auto) 0.0 PT 15.6 H INR 1.4 H APTT 32.0 Anion Gap 17 Estim Creat Clear Calc 52.6 Estimated GFR 51 Random Glucose 94 Calcium 8.3 L Magnesium 1.7 Total Bilirubin 0.2 AST 66 H ALT 43 H Alkaline Phosphatase 103 Total Protein 6.7 Albumin 3.7 Lipase 28 Urine Color Yellow Urine Appearance Clear Urine pH 5.5 Ur Specific [place] 1.015 Urine Protein Negative Urine Glucose (UA) Negative Urine Ketones Negative Urine Blood Negative Urine Nitrite Negative Ur Leukocyte Esterase Negative Urine RBC 0-2 Urine WBC 0-5 Ur Squamous Epith Cells 0-2 Urine Bacteria None Seen Hyaline Casts 0-2 Stool Occult Blood Ethyl Alcohol 335 H* Blood Type O Positive Antibody Screen NEGATIVE 03/09/25 20:20 MCV MCH MCHC RDW Plt Count MPV Immature Gran % (Auto) Neut % (Auto) Lymph % (Auto) [place] % (Auto) Eos % (Auto) Baso % (Auto) Lymph # (Auto) [place] # (Auto) Eos # (Auto) Baso # (Auto) Abs Immat Gran (auto) Absolute Neuts (auto) Absolute Nucleated RBC Nucleated RBC % (auto) PT INR APTT Anion Gap Estim Creat Clear Calc Estimated GFR Random Glucose Calcium Magnesium Total Bilirubin AST ALT Alkaline Phosphatase Total Protein Albumin Lipase Urine Color Urine Appearance Urine pH Ur Specific [place] Urine Protein Urine Glucose (UA) Urine Ketones Urine Blood Urine Nitrite Ur Leukocyte Esterase Urine RBC Urine WBC Ur Squamous Epith Cells Urine Bacteria Hyaline Casts Stool Occult Blood POSITIVE Ethyl Alcohol Blood Type Antibody Screen Imaging Radiologist's Impressions: Impressions Foot X-Ray 03/09/25 11:17 IMPRESSION: 1. Acute mildly comminuted fracture of the second digit, proximal phalanx, involving the proximal metaphysis. There is minimal displacement and minimal angulation. There appears to be extension to the MTP joint. 2. Acute appearing fracture of the distal metaphysis of the third metatarsal. 3. K wire fixation of the hallux. 4. Additional chronic findings as discussed. Electronically signed by: Taz Shaw MD 03/09/2025 12:48 PM EDT RP Head CT 03/09/25 11:28 IMPRESSION: No acute intracranial abnormality. Moderate frontotemporal atrophy. Electronically signed by: Geo Bowling MD 03/09/2025 12:58 PM EDT RP Assessment and Plan (1) Alcohol use disorder: Status: Acute Plan 54-year-old male with a past medical history of hypertension, alcohol use disorder, anxiety, depression, recent diagnosis of pulmonary embolism-on Eliquis presented to the hospital today with a chief complaint of fall. Admitted for following Fall: Mechanical in nature. Fall precautions PT/OT when ready for discharge Acute right foot fracture: Patient had fracture in his foot about 3 weeks ago. Current x-ray shows no new changes. Orthopedics team was notified. Foot laceration is repaired-on p.o. antibiotics for prophylaxis Orthopedics follow-up in a.m. Alcohol use disorder: Patient given phenobarb loading dose. Monitor on CIWA. Thiamine folate and multivitamins. The social work program coordinator follow-up. BRBPR: H&H stable. Last dose of Eliquis was on 03/09/2020 05:00. Eliquis on hold until cleared by Gastroenterology. GI consult. NPO. Clear liquid diet. DORIS: Likely prerenal. Gentle IV fluids. Hypertension: Will resume patient's home carvedilol. Pulmonary embolism: Eliquis on hold as mentioned above pending GI clearance. Depression: Continue home venlafaxine DVT prophylaxis: SCD boots Code status: Full code Quality Stroke Does the patient have a stroke diagnosis?: No VTE Prior VTE?: No VTE Risk Level:: Medical - moderate - high VTE Device Contraindication: N/A - Device Ordered VTE Drug Contraindication: Treatment Not Indicated
--- NOTE | 2025-03-09 21:01 | MHC.CM.ED ---
CM met with patient prior to admission. Provider had concerns that patient may go into alcohol withdrawl. Karolinae was admitted to [facility] from 02/20-02/24 with alcohol withdrawl and seizures. He was discharged to [facility]. Pt left AMA as he did not like the care. He was there for 17 hours per patient. Pt is essentially homeless. He was living with his daughter when he left [facility], but he cannot return. Pt has been drinking alcohol daily and today fell and almost landed on his grandbaby. Pt has surgical repair [place] [facility] [place] 3 [place] ago. Pt is very poor historian. When asked about an ortho follow- up, patient said he thinks it is 04/02, but cannot be sure. Pt cannot tell CM who the surgeon was that operated on him. Pt states his discharge paperwork is with is daughter. Pt uses a cane and has a walker. He has no services. His PCP is Dr. Watson Javier at [facility]. Pt states he may be interested in Recovery services. He stated that he went to [facility], but was denied due to his fracture. Pt insurance verified. No HCP on file. HCP reviewed, completed and signed. HCP Nichole Mtz, daughter, . Pt awaiting bed.
[2025-03-09] MEDS: oxyCODONE HCl Immed Release 5 MG TABLET PO (21:14)
[2025-03-09] MEDS: PHENobarbitaL sodium 130 MG/ML IM ONCE 310 MG IM (21:14)
[2025-03-09] MEDS: Lactated Ringers 1,000 ML 999 ML IV (23:35)
--- NOTE | 2025-03-09 23:43 | PC.NURSE ---
Pt medicated per mar Pts B/P now 105/73. Pt lying supine with legs uncrossed with LR running. Plan of care ongoing.
[2025-03-09 23:44] LABS: MANUAL DIFF FLAG NO
[2025-03-09 23:45] LABS: Hematocrit 25.7 % (42.0-52.0); Hemoglobin 8.7 g/dl (14.0-18.0); Imm Gran Abs Auto 0.02 X10*3/uL (0.00-0.03); Imm Gran Pct Auto 0.3 % (0.0-0.4); Lymphocytes Absolute Auto 1.9 X10*3/uL (1.2-4.9); Mean Corpuscular HGB Conc 33.9 g/dl (31.0-36.0); Mean Corpuscular Hemoglobin 31.3 pg (27.0-33.0); Mean Corpuscular Volume 92.4 fL (80.0-98.0); NRBC Abs Auto 0.000 X10*3/uL (0.0-0.012); NRBC Pct Auto 0.0 /100WBC (0.0-0.2); Platelet Count 193 X10*3/uL (160-400); Red Blood Count 2.78 X10*6/uL (4.60-5.80); White Blood Count 7.0 X10*3/uL (4.8-10.8)
[2025-03-10] VITALS (12 sets, daily range): BP systolic 97–173; BP diastolic 67–114; PULSE 66–91; RESP 11–20; TEMP 36.3–36.8; O2SAT 96–100; BMI 21.9
[2025-03-10] MEDS: PHENobarbitaL sodium 130 MG/ML VIAL IM Q3Hx2 230 MG IM ×2 (00:06→03:20)
--- NOTE | 2025-03-10 00:12 | PC.NURSE ---
Pt medicated per [facility] Plan of care ongoing.
--- NOTE | 2025-03-10 01:26 | PC.NURSE ---
Hospitalist notified and aware of pts CBC results and recent b/p of 132/88. Plan of care ongoing.
--- NOTE | 2025-03-10 03:35 | PC.NURSE ---
Pt medicated per [facility] Plan of care ongoing.
--- NOTE | 2025-03-10 03:46 | PC.NURSE ---
Pts b/p 167/114, hospitalist notified and aware. Plan of care ongoing.
--- NOTE | 2025-03-10 04:06 | PC.NURSE ---
Pt requested and given tylenol for toe pain Pt medicated per [facility] Plan of care ongoing.
[2025-03-10 04:32] LABS: MANUAL DIFF FLAG NO
[2025-03-10 04:33] LABS: Hematocrit 27.9 % (42.0-52.0); Hemoglobin 9.7 g/dl (14.0-18.0); Imm Gran Abs Auto 0.02 X10*3/uL (0.00-0.03); Imm Gran Pct Auto 0.3 % (0.0-0.4); Lymphocytes Absolute Auto 2.2 X10*3/uL (1.2-4.9); Mean Corpuscular HGB Conc 34.8 g/dl (31.0-36.0); Mean Corpuscular Hemoglobin 31.6 pg (27.0-33.0); Mean Corpuscular Volume 90.9 fL (80.0-98.0); NRBC Abs Auto 0.000 X10*3/uL (0.0-0.012); NRBC Pct Auto 0.0 /100WBC (0.0-0.2); Platelet Count 201 X10*3/uL (160-400); Red Blood Count 3.07 X10*6/uL (4.60-5.80); White Blood Count 7.0 X10*3/uL (4.8-10.8)
[2025-03-10 04:51] LABS: Alanine Aminotransferase 36 U/L (0-40); Albumin Level 3.0 g/dL (3.5-5.0); Alkaline Phosphatase 88 U/L (39-117); Anion Gap 13 (12-20); Aspartate Amino Transferase 58 U/L (5-37); Blood Urea Nitrogen 11 mg/dL (9-16); Calcium 7.8 mg/dL (8.4-10.2); Carbon Dioxide 24 mmol/L (22-29); Chloride 108 mmol/L (96-108); Creatinine Clr Calc Pharmacy 70.2; Estimated Glomerular Filt Rate > 60; Potassium 3.6 mmol/L (3.3-5.1); Sodium 141 mmol/L (135-145); Total Protein 5.6 g/dL (6.5-8.0)
--- NOTE | 2025-03-10 08:41 | ECG_ITS ---
Test Reason : ETOH Blood Pressure : */* mmHG Vent. Rate : 65 BPM Atrial Rate : 65 BPM P-R Int : 166 ms QRS Dur : 84 ms QT Int : 408 ms P-R-T Axes : 53 50 56 degrees QTcB Int : 424 ms Normal sinus rhythm Normal ECG When compared with ECG of 09-Mar-2025 11:18, No significant change was found Referred By: Ellie Gutierrez Electronically Signed By: SIMEON LO MD
--- NOTE | 2025-03-10 08:58 | PM.EVENT ---
Event Note Date of Service: 03/10/25 Event Note: Patient is a 54-year-old male admitted to the hospital after fall and foot laceration yesterday Of note, patient does have indwelling hardware (K-wire) from [facility] protruding from the right great toe Keep pin site clean, dry, intact at all times Patient should have dressing over pin site of right foot Upon discharge from the hospital, patient should follow-up with [facility] surgeon who placed hardware Patient can be placed on antibiotics if there appears to be any worsening redness, swelling, or discharge from pin site or due to laceration in close proximity to orthopedic hardware Patient should proceed with whenever weight-bearing status was provided to him after surgery at [facility] Time Spent With Patient Time: Total time managing care of this patient today ____ minutes.
[2025-03-10] MEDS: Venlafaxine HCl ER 75 MG CAP.ER.24H PO (10:15)
--- NOTE | 2025-03-10 10:26 | P.PNIM_ITS ---
Subjective Subjective Date of Service: 03/10/25 Interval History: Seen examined in his room where he is resting comfortably in bed Currently no N/V Mild abdominal tenderness Reports has not been eating for the past 4 days; able to tolerate clear liquid diet for breakfast No hallucinations Review of Systems Review of Systems: Yes all other systems are reviewed and are negative Physical Exam 2 Exam: Exam: General: AOx3, no acute distress. Unkempt Resp: CTA bilaterally CVS: S1, S2, RRR GI: +BS, NT, no distention Skin: Warm, dry Neuro: Cranial nerves II-XII grossly intact bilaterally. Motor grossly intact bilaterally. Mild upper extremity tremors. No tongue fasciculations Extremities: No edema. Right foot bandaged in clean dressing. Psych: Appropriate affect Vital Signs: Vital Signs: Last Vital Signs Temp 98.3 F 03/10/25 09:51 Pulse 71 03/10/25 09:51 Resp 14 03/10/25 09:51 BP 170/104 H 03/10/25 09:51 Pulse Ox 100 03/10/25 09:51 O2 Del Method Room Air 03/10/25 09:51 BMI result Body Mass Index 21.9 Objective Data Active Medications Acetaminophen (Acetaminophen 325 Mg Tablet) 975 mg PO TID PRN PRN Reason: moderate pain Last Admin: 03/10/25 04:03 Dose: 975 mg Documented By: RASHAD Acetaminophen (Acetaminophen 325 Mg Tablet) 650 mg PO Q6H PRN PRN Reason: Pain, Mild 1-3,fever,headache Calcium Carbonate (Calcium Carbonate 750 Mg Tab.Chew) 750 mg PO Q4H PRN PRN Reason: Heartburn Carvedilol (Carvedilol 6.25 Mg Tablet) 6.25 mg PO BID [facility]; Protocol Cephalexin HCl (Cephalexin 500 Mg Capsule) 500 mg PO Q6H [facility] Last Admin: 03/10/25 08:53 Dose: 500 mg Documented By: MELISSA Cyanocobalamin (Cyanocobalamin (Vitamin B-12) 1,000 Mcg Tablet) 1,000 mcg PO DAILY [facility] Last Admin: 03/10/25 08:53 Dose: 1,000 mcg Documented By: MELISSA Famotidine (Famotidine 20 Mg Tablet) 20 mg PO BID [facility] Last Admin: 03/10/25 08:53 Dose: 20 mg Documented By: MELISSA Folic Acid (Folic Acid 1 Mg Tablet) 1 mg PO DAILY [facility] Last Admin: 03/10/25 08:52 Dose: 1 mg Documented By: MELISSA Folic Acid (Folic Acid 1 Mg Tablet) 1 mg PO DAILY [facility] Stop: 03/13/25 08:59 Last Admin: 03/10/25 08:56 Dose: Not Given Documented By: MELISSA Non-Admin Reason: Duplicate Order Gabapentin (Gabapentin 600 Mg Tablet) 600 mg PO TID [facility] Last Admin: 03/10/25 08:53 Dose: 600 mg Documented By: MELISSA Hydroxyzine HCl (Hydroxyzine Hcl 25 Mg Tablet) 25 mg PO Q6H PRN PRN Reason: Anxiety Dextrose/Sodium Chloride (D5ns) 1,000 mls @ 100 mls/hr IVCONT .Q10H [facility] Last Admin: 03/10/25 07:42 Dose: 100 mls/hr Documented By: MELISSA Losartan Potassium (Losartan Potassium 25 Mg Tablet) 25 mg PO DAILY [facility]; Protocol Magnesium Hydroxide (Milk Of Magnesia 30 Ml Oral.Susp) 30 ml PO DAILY PRN PRN Reason: Constipation Melatonin (Melatonin 3 Mg Tablet) 6 mg PO BEDTIME PRN PRN Reason: Insomnia Multivitamins/Vitamin C (Multivitamin Tablet) 1 tab PO DAILY [facility] Stop: 03/13/25 08:59 Last Admin: 03/10/25 08:52 Dose: 1 tab Documented By: MELISSA Omeprazole (Omeprazole 40 Mg Capsule.Dr) 40 mg PO BID@0630,1630 [facility] Last Admin: 03/10/25 06:38 Dose: 40 mg Documented By: MILLIE Pharmacy Consult (Consult Rx Etoh Phenob Im/Po) 1 each MISCELLANE ONCE PRN; Protocol PRN Reason: Consult order Phenobarbital (Phenobarbital 15 Mg Tablet) 45 mg PO BID [facility]; Protocol Stop: 03/11/25 21:01 Last Admin: 03/10/25 08:52 Dose: 45 mg Documented By: MELISSA Phenobarbital (Phenobarbital 15 Mg Tablet) 15 mg PO BID [facility]; Protocol Stop: 03/13/25 21:01 Phenobarbital (Phenobarbital 15 Mg Tablet) 15 mg PO DAILY [facility]; Protocol Stop: 03/15/25 09:01 Pyridoxine HCl (Pyridoxine Hcl (Vitamin B6) 50 Mg Tablet) 50 mg PO DAILY [facility] Last Admin: 03/10/25 10:15 Dose: 50 mg Documented By: BOOM Sodium Chloride (0.9 % Sodium Chloride Flush 3 Ml Syringe) 3 ml IVFLUSH QSHIFT [facility] Last Admin: 03/10/25 07:05 Dose: Not Given Documented By: MELISSA Non-Admin Reason: IV Running Thiamine HCl (Thiamine Hcl 100 Mg Tablet) 100 mg PO BID [facility] Last Admin: 03/10/25 08:53 Dose: 100 mg Documented By: MELISSA Trazodone HCl (Trazodone Hcl 100 Mg Tablet) 100 mg PO BEDTIME [facility] Last Admin: 03/09/25 20:01 Dose: 100 mg Documented By: DITOISABELLA Venlafaxine HCl (Venlafaxine Hcl Er 75 Mg Cap.Er.24h) 75 mg PO DAILY [facility] Last Admin: 03/10/25 10:15 Dose: 75 mg Documented By: BOOM Labs 03/10/25 04:24 03/10/25 04:24 Labs: Laboratory Results - last 24 hr 03/09/25 03/09/25 03/09/25 11:46 11:57 18:57 MCV 91.8 MCH 31.1 MCHC 33.8 RDW 20.4 H Plt Count 265 MPV 9.6 Immature Gran % (Auto) 0.3 Neut % (Auto) 67.8 Lymph % (Auto) 23.3 [place] % (Auto) 5.2 Eos % (Auto) 2.4 Baso % (Auto) 1.0 Lymph # (Auto) 2.4 [place] # (Auto) 0.5 Eos # (Auto) 0.3 Baso # (Auto) 0.1 Abs Immat Gran (auto) 0.03 Absolute Neuts (auto) 7.0 Absolute Nucleated RBC 0.000 Nucleated RBC % (auto) 0.0 PT 15.6 H INR 1.4 H APTT 32.0 Anion Gap 17 Estim Creat Clear Calc 52.6 Estimated GFR 51 Random Glucose 94 Calcium 8.3 L Magnesium 1.7 Total Bilirubin 0.2 AST 66 H ALT 43 H Alkaline Phosphatase 103 Total Protein 6.7 Albumin 3.7 Lipase 28 Urine Color Yellow Urine Appearance Clear Urine pH 5.5 Ur Specific [place] 1.015 Urine Protein Negative Urine Glucose (UA) Negative Urine Ketones Negative Urine Blood Negative Urine Nitrite Negative Ur Leukocyte Esterase Negative Urine RBC 0-2 Urine WBC 0-5 Ur Squamous Epith Cells 0-2 Urine Bacteria None Seen Hyaline Casts 0-2 Stool Occult Blood Ethyl Alcohol 335 H* Blood Type O Positive Antibody Screen NEGATIVE 03/09/25 03/09/25 03/10/25 20:20 23:39 04:24 MCV 92.4 90.9 MCH 31.3 31.6 MCHC 33.9 34.8 RDW 20.1 H 20.1 H Plt Count 193 D 201 MPV 9.5 9.6 Immature Gran % (Auto) 0.3 0.3 Neut % (Auto) 62.3 55.8 Lymph % (Auto) 27.6 31.1 [place] % (Auto) 6.1 7.8 Eos % (Auto) 2.7 3.7 Baso % (Auto) 1.0 1.3 Lymph # (Auto) 1.9 2.2 [place] # (Auto) 0.4 0.6 Eos # (Auto) 0.2 0.3 Baso # (Auto) 0.1 0.1 Abs Immat Gran (auto) 0.02 0.02 Absolute Neuts (auto) 4.4 3.9 Absolute Nucleated RBC 0.000 0.000 Nucleated RBC % (auto) 0.0 0.0 PT INR APTT Anion Gap 13 Estim Creat Clear Calc 70.2 Estimated GFR > 60 Random Glucose 85 Calcium 7.8 L D Magnesium Total Bilirubin 0.2 AST 58 H ALT 36 Alkaline Phosphatase 88 Total Protein 5.6 L Albumin 3.0 L Lipase Urine Color Urine Appearance Urine pH Ur Specific [place] Urine Protein Urine Glucose (UA) Urine Ketones Urine Blood Urine Nitrite Ur Leukocyte Esterase Urine RBC Urine WBC Ur Squamous Epith Cells Urine Bacteria Hyaline Casts Stool Occult Blood POSITIVE Ethyl Alcohol Blood Type Antibody Screen Assessment and Plan (1) Alcohol use disorder: Status: Acute (2) BRBPR (bright red blood per rectum): Status: Acute (3) Fall at home: Status: Acute Plan 54-year-old male with a past medical history of hypertension, alcohol use disorder, anxiety, depression, recent diagnosis of pulmonary embolism-on Eliquis presented to the hospital today with a chief complaint of fall. Admitted for DORIS and fall at home in the setting of alcohol use disorder with likely impending withdrawal. Fall: Mechanical in nature, in the setting of heavy alcohol use Fall precautions PT/OT when ready for discharge Acute right foot fracture: Patient had fracture in his foot about 3 weeks ago. [place] [facility] [place] (K-wire). Current x-ray shows no new changes Foot laceration is repaired-on p.o. antibiotics for prophylaxis, day 2 Orthopedics recommends: Keep pin site clean, dry, intact at all times Patient should have dressing over pin site of right foot Upon discharge from the hospital, patient should follow-up with [facility] surgeon who placed hardware Patient should proceed with whenever weight-bearing status was provided to him after surgery at [facility] Alcohol use disorder: Drinking 15 nips daily, hx of withdrawal. Patient given phenobarb loading dose. Monitor on CIWA. Thiamine, folate, and multivitamins. PPI. Addiction medicine BRBPR: H&H stable. Last dose of Eliquis was on 03/09/2020 05:00. Eliquis on hold until cleared by Gastroenterology. GI consult. Has been on clear liquid diet. DORIS: Likely prerenal. Improved with gentle IV fluids: 1.44-->1.08. Continue fluids for now and monitor BMP Hypertension: Will resume patient's home carvedilol and losartan Hx of DVT/PE: Eliquis on hold as mentioned above pending GI clearance. Depression: Continue home venlafaxine DVT prophylaxis: SCD boots Code status: Full code Pt needs continued hospitalization for monitoring of H&H, BNP, and treatment for alcohol withdrawal and DORIS. Quality Stroke Does the patient have a stroke diagnosis?: No VTE Prior VTE?: No VTE Risk Level:: Medical - moderate - high VTE Device Contraindication: N/A - Device Ordered VTE Drug Contraindication: Treatment Not Indicated
[2025-03-10] MEDS: oxyCODONE HCl Immed Release 5 MG TABLET PO ×2 (10:38→16:38)
[2025-03-10 11:07] LABS: Hematocrit 29.0 % (42.0-52.0); Hemoglobin 9.7 g/dl (14.0-18.0); Mean Corpuscular HGB Conc 33.4 g/dl (31.0-36.0); Mean Corpuscular Hemoglobin 31.0 pg (27.0-33.0); Mean Corpuscular Volume 92.7 fL (80.0-98.0); NRBC Abs Auto 0.000 X10*3/uL (0.0-0.012); NRBC Pct Auto 0.0 /100WBC (0.0-0.2); Platelet Count 198 X10*3/uL (160-400); Red Blood Count 3.13 X10*6/uL (4.60-5.80); White Blood Count 7.6 X10*3/uL (4.8-10.8)
--- NOTE | 2025-03-10 12:10 | P.CNGI_ITS ---
History of Present Illness Data of Consult Service Date: 03/10/25 Requesting physician: John Hutson Primary Care Provider: Unknown Physician HPI Reason for consult: BRBPR 54-year-old gentleman with medical history of hypertension, alcohol use disorder, recent diagnosis of PE on Eliquis, recent admission for fall and rectal bleeding status post EGD/colonoscopy 02/22/25, who presented to the hospital last evening for fall and found to have right foot fracture. Patient also reported BRBPR on admission for which Gastroenterology has been consulted. He reports that since his discharge from the hospital, any time he goes to the bathroom to defecate and strains, notices significant blood in the toilet bowl, and also on wiping on toilet paper. This is not associated with any abdominal pain, nausea, vomiting. Last bowel movement with blood was noted to be 2 days ago per his report. Of note, he also continues to drink. Last drink was yesterday morning. Drink of choice is whiskey. On bedside assessment, vitals noted to be stable, in fact he is hypertensive due to withdrawal from alcohol. Based on discharge H&H from 02/24, initial H&H of 11.8 this admission seems erroneous and likely secondary to volume contraction. H&H overnight and this morning has remained steady after volume replacement. Creatinine has now normalized. As above, EGD/colonoscopy 02/22/2025 (Dr. Kumari): Grade B erosive esophagitis and duodenitis. X2 tubular adenoma in descending and sigmoid colon - sigmoid colon polyp was 10 mm and x2 hemoclips were applied. Review of Systems 2 Review of Systems: Yes all other systems are reviewed and are negative [facility] Past Medical History Medical History Atherosclerotic cardiovascular disease Social History Social History Household Members: Family Housing: House Are you a primary school childcare attendant to a significant other at home: No Do you presently have visiting nurse or other home services: No Alcohol intake: current Alcohol intake frequency: 3 or more drinks per day Alcohol type: hard liquor Patient Tobacco Use Status: Former Tobacco user Tobacco use type: Cigarette Years Smoked: 40 years Second Hand Smoke Exposure: No Substance Use Type: Marijuana service: Yes Meds Allergies Allergy/AdvReac Type Severity Reaction Status Date / Time No Known Allergies Allergy Verified 03/09/25 09:49 Active Medications: Current Medications Acetaminophen (Acetaminophen 325 Mg Tablet) 975 mg PO TID PRN PRN Reason: moderate pain Last Admin: 03/10/25 04:03 Dose: 975 mg Acetaminophen (Acetaminophen 325 Mg Tablet) 650 mg PO Q6H PRN PRN Reason: Pain, Mild 1-3,fever,headache Calcium Carbonate (Calcium Carbonate 750 Mg Tab.Chew) 750 mg PO Q4H PRN PRN Reason: Heartburn Carvedilol (Carvedilol 6.25 Mg Tablet) 6.25 mg PO BID [facility]; Protocol Last Admin: 03/10/25 10:32 Dose: 6.25 mg Cephalexin HCl (Cephalexin 500 Mg Capsule) 500 mg PO Q6H [facility] Last Admin: 03/10/25 08:53 Dose: 500 mg Cyanocobalamin (Cyanocobalamin (Vitamin B-12) 1,000 Mcg Tablet) 1,000 mcg PO DAILY [facility] Last Admin: 03/10/25 08:53 Dose: 1,000 mcg Famotidine (Famotidine 20 Mg Tablet) 20 mg PO BID [facility] Last Admin: 03/10/25 08:53 Dose: 20 mg Folic Acid (Folic Acid 1 Mg Tablet) 1 mg PO DAILY [facility] Last Admin: 03/10/25 08:52 Dose: 1 mg Folic Acid (Folic Acid 1 Mg Tablet) 1 mg PO DAILY [facility] Stop: 03/13/25 08:59 Last Admin: 03/10/25 08:56 Dose: Not Given Gabapentin (Gabapentin 600 Mg Tablet) 600 mg PO TID [facility] Last Admin: 03/10/25 08:53 Dose: 600 mg Hydroxyzine HCl (Hydroxyzine Hcl 25 Mg Tablet) 25 mg PO Q6H PRN PRN Reason: Anxiety Dextrose/Sodium Chloride (D5ns) 1,000 mls @ 100 mls/hr IVCONT .Q10H [facility] Last Admin: 03/10/25 07:42 Dose: 100 mls/hr Losartan Potassium (Losartan Potassium 25 Mg Tablet) 25 mg PO DAILY [facility]; Protocol Last Admin: 03/10/25 10:32 Dose: 25 mg Magnesium Hydroxide (Milk Of Magnesia 30 Ml Oral.Susp) 30 ml PO DAILY PRN PRN Reason: Constipation Melatonin (Melatonin 3 Mg Tablet) 6 mg PO BEDTIME PRN PRN Reason: Insomnia Multivitamins/Vitamin C (Multivitamin Tablet) 1 tab PO DAILY [facility] Stop: 03/13/25 08:59 Last Admin: 03/10/25 08:52 Dose: 1 tab Omeprazole (Omeprazole 40 Mg Capsule.Dr) 40 mg PO BID@0630,1630 [facility] Last Admin: 03/10/25 06:38 Dose: 40 mg Oxycodone HCl (Oxycodone Hcl Immed Release 5 Mg Tablet) 5 mg PO Q6H PRN PRN Reason: Pain, Severe (Pain Scale 7-10) Last Admin: 03/10/25 10:38 Dose: 5 mg Pharmacy Consult (Consult Rx Etoh Phenob Im/Po) 1 each MISCELLANE ONCE PRN; Protocol PRN Reason: Consult order Phenobarbital (Phenobarbital 15 Mg Tablet) 45 mg PO BID [facility]; Protocol Stop: 03/11/25 21:01 Last Admin: 03/10/25 08:52 Dose: 45 mg Phenobarbital (Phenobarbital 15 Mg Tablet) 15 mg PO BID [facility]; Protocol Stop: 03/13/25 21:01 Phenobarbital (Phenobarbital 15 Mg Tablet) 15 mg PO DAILY [facility]; Protocol Stop: 03/15/25 09:01 Pyridoxine HCl (Pyridoxine Hcl (Vitamin B6) 50 Mg Tablet) 50 mg PO DAILY [facility] Last Admin: 03/10/25 10:15 Dose: 50 mg Sodium Chloride (0.9 % Sodium Chloride Flush 3 Ml Syringe) [facility] Last Admin: 03/10/25 07:05 Dose: Not Given Thiamine HCl (Thiamine Hcl 100 Mg Tablet) 100 mg PO BID [facility] Last Admin: 03/10/25 08:53 Dose: 100 mg Trazodone HCl (Trazodone Hcl 100 Mg Tablet) 100 mg PO BEDTIME [facility] Last Admin: 03/09/25 20:01 Dose: 100 mg Venlafaxine HCl (Venlafaxine Hcl Er 75 Mg Cap.Er.24h) 75 mg PO DAILY [facility] Last Admin: 03/10/25 10:15 Dose: 75 mg Home Medications ?Medication ?Instructions ?Recorded ?Confirmed ?Last Taken ?Type acetaminophen 500 mg tablet 1,000 mg PO TID PRN modera te pain 02/20/25 03/09/25 03/08/25 History apixaban 5 mg tablet (Eliquis) 5 mg PO BID 02/20/2503/08/25 History carvedilol 6.25 mg tablet 6.25 mg PO BID 02/20/2509/0203/09/25 History cyanocobalamin (vitamin B-12) 1,000 mcg PO DAILY 02/2003/09/25 03/08/25 History 1,000 mcg tablet folic acid 1 mg tablet 1 mg PO DAILY 02/20/2503/0903/08/25 History gabapentin 600 mg tablet 600 mg PO TID 02/20/2503/0903/09/25 History losartan 25 mg tablet 25 mg PO DAILY 02/20/2509/0203/08/25 History pyridoxine (vitamin B6) 50 mg 50 mg PO DAILY 02/20/25 03/09/25 03/09/25 History tablet thiamine HCl (vitamin B1) 100 mg 100 mg PO BID 03/09/25 03/08/25 History tablet trazodone 100 mg tablet 100 mg PO BEDTIME 02/20/25 0 03/09/25 03/08/25 History venlafaxine 75 mg capsule,extended 75 mg PO DAILY 02/0603/09/25 03/08/25 History release 24 hr Physical Exam 2 Exam: Exam: Frail appearing gentleman Appears older than stated age Nonicteric Abdomen soft, nontender, nondistended Right foot in clean dry dressing Vital Signs: Vital Signs: Last Vital Signs Temp 97.4 F 03/10/25 11:37 Pulse 81 03/10/25 11:37 Resp 20 03/10/25 11:37 BP 112/77 03/10/25 11:37 Pulse Ox 99 03/10/25 11:37 O2 Del Method Room Air 03/10/25 11:37 BMI result Body Mass Index 21.9 Results Labs 03/10/25 11:02 03/10/25 04:24 Labs: Short CBC 03/09/25 03/09/25 03/10/25 Range/Units 19:41 23:39 04:24 WBC 7.0 7.0 (4.8-10.8) X10*3/uL Hgb 11.0 L 8.7 L D 9.7 L (14.0-18.0) g/dl Hct 31.9 L 25.7 L 27.9 L (42.0-52.0) % Plt Count 193 D 201 (160-400) X10*3/uL 03/10/25 Range/Units 11:02 WBC 7.6 (4.8-10.8) X10*3/uL Hgb 9.7 L (14.0-18.0) g/dl Hct 29.0 L (42.0-52.0) % Plt Count 198 (160-400) X10*3/uL BMP 03/09/25 03/10/25 11:57 04:24 Sodium 143 141 Potassium 3.5 3.6 Chloride 105 108 Carbon Dioxide 25 24 BUN 10 11 Creatinine 1.44 H 1.08 Calcium 8.3 L 7.8 L D Liver Function 03/09/25 03/10/25 Range/Units 11:57 04:24 Total Bilirubin 0.2 0.2 (0.0-1.0) mg/dL AST 66 H 58 H (5-37) U/L ALT 43 H 36 (0-40) U/L Alkaline Phosphatase 103 88 (39-117) U/L Albumin 3.7 3.0 L (3.5-5.0) g/dL Urine 03/09/25 Range/Units 18:57 Urine Color Yellow Urine Appearance Clear Urine pH 5.5 (5.0-9.0) Ur Specific [place] 1.015 (1.005-1.025) Urine Protein Negative (Neg-Trace) mg/dL Urine Glucose (UA) Negative (Negative) mg/dL Assessment and Plan (1) BRBPR (bright red blood per rectum): Status: Acute (2) On continuous oral anticoagulation: Status: Acute (3) Alcohol use disorder: Status: Acute (4) History of colonoscopy with polypectomy: Status: Acute (5) Fall at home: Status: Acute Plan Differentials for BRBPR include hemorrhoidal bleeding versus post polypectomy bleeding (delayed bleeding can occur even up to 30 days after polypectomy). Diverticular bleeding less likley as it is typically very dramatic and causes a much significant drop in H/H. Based on his description, has not had any further bleeding in more than 24 hours. However, since history is somewhat unreliable, would recommend a bedside commode to it can be objectively documented. Plan: - maintain IV access at all times - monitor CBC - transfuse for hemoglobin less than 7 - Hold eliquis for now and monitor GI output. Requested his RN to keep a bedside commode - if has significant bleeding with drop in H/H, will need flex sig to evaluate the site of descending colon and sigmoid colon polypectomy - if has minimal to no bleeding, anticoagulation can be resumed - CIWA protocol - OK for clears today Thank you for allowing me to participate in his care. Please do not hesitate to reach out for any questions or concerns. Procedures Date of Service Date of Service: 03/10/25
--- NOTE | 2025-03-10 15:39 | MHC.CM.PN ---
IMM delivered. Patient lives in a home w/ his daughter and grandchildren. AUD with frequent falls. Independent at baseline, but after recent foot fx he went to [facility] for one day and left AMA (~02/24). Foot w/ pins and dressing. Reports he is now ambulating w/ a boot and cane. No services. PCP Watson Javier MD HCP on file and verified. DP: PT rec STR. Patient is agreeable. Reports he was unsure if his daughter would let him return home after most recent fall, but believes after STR and a few weeks sober, this will not be an issue. No preference to facility. He understands he may have to consider facilities in [facility]. BLS transport. CM will continue to follow.
[2025-03-10] MEDS: 0.9 % Sodium Chloride Flush 3 ML SYRINGE IVFLUSH (21:36)
[2025-03-11] VITALS: BP 91/57; PULSE 69; RESP 16; TEMP 36.2; O2SAT 98
[2025-03-11] MEDS: oxyCODONE HCl Immed Release 5 MG TABLET PO ×4 (00:16→20:39)
[2025-03-11 03:55] VITALS: BP 143/94; PULSE 67; RESP 20; TEMP 36.3; O2SAT 100
[2025-03-11 07:31] VITALS: BP 145/97; PULSE 77; RESP 20; TEMP 37.1; O2SAT 100
[2025-03-11 07:44] LABS: Hematocrit 27.6 % (42.0-52.0); Hemoglobin 9.1 g/dl (14.0-18.0); Mean Corpuscular HGB Conc 33.0 g/dl (31.0-36.0); Mean Corpuscular Hemoglobin 30.8 pg (27.0-33.0); Mean Corpuscular Volume 93.6 fL (80.0-98.0); NRBC Abs Auto 0.000 X10*3/uL (0.0-0.012); NRBC Pct Auto 0.0 /100WBC (0.0-0.2); Platelet Count 201 X10*3/uL (160-400); Red Blood Count 2.95 X10*6/uL (4.60-5.80); White Blood Count 5.3 X10*3/uL (4.8-10.8)
[2025-03-11 07:56] LABS: Anion Gap 10 (12-20); Blood Urea Nitrogen 4 mg/dL (9-16); Calcium 7.4 mg/dL (8.4-10.2); Carbon Dioxide 23 mmol/L (22-29); Chloride 112 mmol/L (96-108); Creatinine Clr Calc Pharmacy 106.8; Estimated Glomerular Filt Rate > 60; Magnesium 1.2 mg/dL (1.6-2.6); Potassium 3.2 mmol/L (3.3-5.1); Sodium 142 mmol/L (135-145)
--- NOTE | 2025-03-11 07:58 | P.PNGI_ITS ---
Subjective Subjective Date of Service: 03/11/25 Interval History: Seen at bedside. Has not been able to pass any further bowel movements since he was last seen. Does not report any abdominal pain, eager to advance diet. H&H steady Critical Care Time (minutes): 0 Physical Exam 2 Exam: Exam: Appears older than stated age Nonicteric Abdomen soft, nontender, nondistended Right foot in clean dry dressing Vital Signs: Vital Signs: Last Vital Signs Temp 98.7 F 03/11/25 07:31 Pulse 77 03/11/25 07:31 Resp 20 03/11/25 07:31 BP 145/97 H 03/11/25 07:31 Pulse Ox 100 03/11/25 07:31 O2 Del Method Room Air 03/11/25 07:31 BMI result Body Mass Index 21.9 Objective Data Labs 03/11/25 06:56 03/11/25 06:56 Labs: Laboratory Results - last 24 hr 03/10/25 03/11/25 11:02 06:56 WBC 7.6 5.3 RBC 3.13 L 2.95 L Hgb 9.7 L 9.1 L Hct 29.0 L 27.6 L MCV 92.7 93.6 MCH 31.0 30.8 MCHC 33.4 33.0 RDW 20.3 H 20.3 H Plt Count 198 201 MPV 9.1 L 10.6 Absolute Nucleated RBC 0.000 0.000 Nucleated RBC % (auto) 0.0 0.0 Sodium 142 Potassium 3.2 L Chloride 112 H Carbon Dioxide 23 Anion Gap 10 L BUN 4 L Creatinine 0.71 Estim Creat Clear Calc 106.8 Estimated GFR > 60 Random Glucose 100 Calcium 7.4 L Magnesium 1.2 L* Procedures Date of Service Date of Service: 03/11/25 Progress Note: A&P Assessment and plan (1) Alcohol use disorder: Status: Acute (2) BRBPR (bright red blood per rectum): Status: Acute (3) History of colonoscopy with polypectomy: Status: Acute Plan Differentials for BRBPR include hemorrhoidal bleeding versus post polypectomy bleeding (delayed bleeding can occur even up to 30 days after polypectomy). Diverticular bleeding less likely as it is typically very dramatic and causes a much significant drop in H/H. At present, bleeding appears to have been self limited and therefore no indication for repeat diagnostic colo at this time. UPDATE - picture sent by bedside nursing at 9.30am. Small amount of blood with BROWN stool. Argues against post polypectomy bleeding, and more consistent with outlet bleeding. Recommend anusol suppositories. Avoid constipation and straining. Fiber intake. OK to advance diet. Time Spent With Patient Time: Total time managing care of this patient today ____ minutes. Quality Stroke Does the patient have a stroke diagnosis?: No VTE Prior VTE?: No VTE Risk Level:: Medical - moderate - high VTE Device Contraindication: N/A - Device Ordered VTE Drug Contraindication: Treatment Not Indicated
[2025-03-11] MEDS: Potassium Chloride Packet 20 MEQ PACKET 40 MEQ PO (09:23)
[2025-03-11] MEDS: Magnesium Sulfate/H2O 2 GM/50 ML PIGGYBACK IV (09:23)
[2025-03-11] MEDS: Venlafaxine HCl ER 75 MG CAP.ER.24H PO (09:24)
[2025-03-11] MEDS: 0.9 % Sodium Chloride Flush 3 ML SYRINGE IVFLUSH ×3 (09:25→20:40)
--- NOTE | 2025-03-11 10:18 | P.PNIM_ITS ---
Subjective Subjective Date of Service: 03/11/25 Interval History: Pt seen and evaluated this morning Overall reports feeling ?okay? Has some bright red blood with wiping Some increased anxiety last night No nausea, vomiting No julianne hallucinations No F/C, or significant right leg pain Review of Systems No SOB or difficulty breathing Denies chest pain/pressure, palpitations Physical Exam 2 Exam: Exam: General: AOx3, no acute distress. Unkempt Resp: CTA bilaterally CVS: S1, S2, RRR GI: +BS, NT, no distention Skin: Warm, dry Neuro: Cranial nerves II-XII grossly intact bilaterally. Motor grossly intact bilaterally. Mild upper extremity tremors. No tongue fasciculations Extremities: No edema. Right foot bandaged in clean dressing. Psych: Appropriate affect Vital Signs: Vital Signs: Last Vital Signs Temp 98.7 F 03/11/25 07:31 Pulse 77 03/11/25 07:31 Resp 20 03/11/25 07:31 BP 145/97 H 03/11/25 07:31 Pulse Ox 100 03/11/25 07:31 O2 Del Method Room Air 03/11/25 07:31 BMI result Body Mass Index 21.9 Objective Data Active Medications Acetaminophen (Acetaminophen 325 Mg Tablet) 975 mg PO TID PRN PRN Reason: moderate pain Last Admin: 03/10/25 04:03 Dose: 975 mg Documented By: RASHAD Acetaminophen (Acetaminophen 325 Mg Tablet) 650 mg PO Q6H PRN PRN Reason: Pain, Mild 1-3,fever,headache Last Admin: 03/11/25 09:24 Dose: 650 mg Documented By: MINDA Calcium Carbonate (Calcium Carbonate 750 Mg Tab.Chew) 750 mg PO Q4H PRN PRN Reason: Heartburn Carvedilol (Carvedilol 6.25 Mg Tablet) 6.25 mg PO BID [facility]; Protocol Last Admin: 03/11/25 09:24 Dose: 6.25 mg Documented By: MINDA Cephalexin HCl (Cephalexin 500 Mg Capsule) 500 mg PO Q6H [facility] Last Admin: 03/11/25 09:25 Dose: 500 mg Documented By: MINDA Cyanocobalamin (Cyanocobalamin (Vitamin B-12) 1,000 Mcg Tablet) 1,000 mcg PO DAILY [facility] Last Admin: 03/11/25 09:25 Dose: 1,000 mcg Documented By: MINDA Famotidine (Famotidine 20 Mg Tablet) 20 mg PO BID [facility] Last Admin: 03/11/25 09:25 Dose: 20 mg Documented By: MINDA Folic Acid (Folic Acid 1 Mg Tablet) 1 mg PO DAILY [facility] Last Admin: 03/11/25 09:25 Dose: 1 mg Documented By: MINDA Folic Acid (Folic Acid 1 Mg Tablet) 1 mg PO DAILY [facility] Stop: 03/13/25 08:59 Last Admin: 03/11/25 09:26 Dose: Not Given Documented By: MINDA Non-Admin Reason: Duplicate Order Gabapentin (Gabapentin 600 Mg Tablet) 600 mg PO TID [facility] Last Admin: 03/11/25 09:25 Dose: 600 mg Documented By: MINDA Hydroxyzine HCl (Hydroxyzine Hcl 25 Mg Tablet) 25 mg PO Q6H PRN PRN Reason: Anxiety Last Admin: 03/11/25 00:16 Dose: 25 mg Documented By: NILDA Dextrose/Sodium Chloride (D5ns) 1,000 mls @ 100 mls/hr IVCONT .Q10H [facility] Last Admin: 03/11/25 03:34 Dose: 100 mls/hr Documented By: NILDA Magnesium Sulfate (Magnesium Sulfate/H2o) 2 gm in 50 mls @ 25 mls/hr IV ONCE ONE Stop: 03/11/25 10:48 Last Admin: 03/11/25 09:23 Dose: 25 mls/hr Documented By: MINDA Losartan Potassium (Losartan Potassium 25 Mg Tablet) 25 mg PO DAILY [facility]; Protocol Last Admin: 03/11/25 09:23 Dose: 25 mg Documented By: MINDA Magnesium Hydroxide (Milk Of Magnesia 30 Ml Oral.Susp) 30 ml PO DAILY PRN PRN Reason: Constipation Melatonin (Melatonin 3 Mg Tablet) 6 mg PO BEDTIME PRN PRN Reason: Insomnia Multivitamins/Vitamin C (Multivitamin Tablet) 1 tab PO DAILY [facility] Stop: 03/13/25 08:59 Last Admin: 03/11/25 09:25 Dose: 1 tab Documented By: MINDA Omeprazole (Omeprazole 40 Mg Capsule.) 40 mg PO BID@0630,1630 [facility] Last Admin: 03/11/25 06:19 Dose: 40 mg Documented By: NILDA Oxycodone HCl (Oxycodone Hcl Immed Release 5 Mg Tablet) 5 mg PO Q6H PRN PRN Reason: Pain, Severe (Pain Scale 7-10) Last Admin: 03/11/25 06:19 Dose: 5 mg Documented By: NILDA Pharmacy Consult (Consult Rx Etoh Phenob Im/Po) 1 each MISCELLANE ONCE PRN; Protocol PRN Reason: Consult order Phenobarbital (Phenobarbital 15 Mg Tablet) 45 mg PO BID [facility]; Protocol Stop: 03/11/25 21:01 Last Admin: 03/11/25 09:25 Dose: 45 mg Documented By: MINDA Phenobarbital (Phenobarbital 15 Mg Tablet) 15 mg PO BID [facility]; Protocol Stop: 03/13/25 21:01 Phenobarbital (Phenobarbital 15 Mg Tablet) 15 mg PO DAILY [facility]; Protocol Stop: 03/15/25 09:01 Pyridoxine HCl (Pyridoxine Hcl (Vitamin B6) 50 Mg Tablet) 50 mg PO DAILY [facility] Last Admin: 03/11/25 09:24 Dose: 50 mg Documented By: MINDA Sodium Chloride (0.9 % Sodium Chloride Flush 3 Ml Syringe) [facility] Last Admin: 03/11/25 09:25 Dose: 3 ml Documented By: MINDA Thiamine HCl (Thiamine Hcl 100 Mg Tablet) 100 mg PO BID [facility] Last Admin: 03/11/25 09:24 Dose: 100 mg Documented By: MINDA Trazodone HCl (Trazodone Hcl 100 Mg Tablet) 100 mg PO BEDTIME [facility] Last Admin: 03/10/25 21:35 Dose: 100 mg Documented By: NILDA Venlafaxine HCl (Venlafaxine Hcl Er 75 Mg Cap.Er.24h) 75 mg PO DAILY [facility] Last Admin: 03/11/25 09:24 Dose: 75 mg Documented By: MINDA Labs 03/11/25 06:56 03/11/25 06:56 Labs: Laboratory Results - last 24 hr 03/10/25 03/11/25 11:02 06:56 MCV 92.7 93.6 MCH 31.0 30.8 MCHC 33.4 33.0 RDW 20.3 H 20.3 H Plt Count 198 201 MPV 9.1 L 10.6 Absolute Nucleated RBC 0.000 0.000 Nucleated RBC % (auto) 0.0 0.0 Anion Gap 10 L Estim Creat Clear Calc 106.8 Estimated GFR > 60 Random Glucose 100 Calcium 7.4 L Magnesium 1.2 L* Assessment and Plan (1) BRBPR (bright red blood per rectum): Status: Acute (2) Fall at home: Status: Acute (3) Alcohol use disorder: Status: Acute Plan 54-year-old male with a past medical history of hypertension, alcohol use disorder, anxiety, depression, recent diagnosis of pulmonary embolism-on Eliquis presented to the hospital today with a chief complaint of fall. Admitted for DORIS and fall at home in the setting of alcohol use disorder with likely impending withdrawal. Fall: Mechanical in nature, in the setting of heavy alcohol use Fall precautions PT suggests STR Acute right foot fracture: Patient had fracture in his foot about 3 weeks ago. Surgical treatment at [facility] with indwelling hardware (K-wire). Current x-ray shows no new changes Foot laceration is repaired-on p.o. antibiotics for prophylaxis, day 2 Orthopedics recommends: Keep pin site clean, dry, intact at all times Patient should have dressing over pin site of right foot Upon discharge from the hospital, patient should follow-up with [facility] surgeon who placed hardware Patient should proceed with whenever weight-bearing status was provided to him after surgery at [facility] Alcohol use disorder: Drinking 15 nips daily, hx of withdrawal. Patient given phenobarb loading dose. Monitor on CIWA. Thiamine, folate, and multivitamins. PPI. Addiction medicine BRBPR: H&H stable. Had small amount of BRBPR this morning which was seen by GI in thought likely secondary to hemorrhoids. Will treat with Anusol suppository. GI consult. Diet advanced to full. Eliquis resumed DORIS, resolved: Likely prerenal. Resolved with gentle IV fluids: 1.44-->1.08-->0.71. Hypertension: Will resume patient's home carvedilol and losartan Hx of DVT/PE: Continue Eliquis. Depression: Continue home venlafaxine DVT prophylaxis: SCD boots Code status: Full code Pt needs continued hospitalization for monitoring of H&H, BNP, and treatment for alcohol withdrawal and DORIS. Quality Stroke Does the patient have a stroke diagnosis?: No VTE Prior VTE?: No VTE Risk Level:: Medical - moderate - high VTE Device Contraindication: N/A - Device Ordered VTE Drug Contraindication: Treatment Not Indicated
[2025-03-11 10:46] VITALS: BP 127/91; PULSE 77; RESP 20; TEMP 37.5; O2SAT 99
[2025-03-11 16:00] VITALS: BP 135/88; PULSE 99; RESP 16; TEMP 36.7; O2SAT 100
[2025-03-11 19:58] VITALS: BP 150/94; PULSE 91; RESP 16; TEMP 37.1; O2SAT 98
[2025-03-12] VITALS: BP 160/90; PULSE 84; RESP 16; TEMP 36.7; O2SAT 99
[2025-03-12] MEDS: oxyCODONE HCl Immed Release 5 MG TABLET PO ×3 (03:03→15:05)
[2025-03-12 03:55] VITALS: BP 140/90; PULSE 67; RESP 16; TEMP 36.3; O2SAT 100
[2025-03-12 07:39] VITALS: BP 147/99; PULSE 73; RESP 17; TEMP 36.8; O2SAT 100
[2025-03-12] MEDS: Venlafaxine HCl ER 75 MG CAP.ER.24H PO (07:56)
[2025-03-12] MEDS: 0.9 % Sodium Chloride Flush 3 ML SYRINGE IVFLUSH (07:59)
[2025-03-12 09:20] LABS: Blood Urea Nitrogen 4 mg/dL (9-16); Calcium 8.0 mg/dL (8.4-10.2); Creatinine Clr Calc Pharmacy 83.3; Estimated Glomerular Filt Rate > 60; Magnesium 1.5 mg/dL (1.6-2.6)
[2025-03-12 09:34] LABS: Anion Gap 12 (12-20); Carbon Dioxide 23 mmol/L (22-29); Chloride 110 mmol/L (96-108); Potassium 3.9 mmol/L (3.3-5.1); Sodium 141 mmol/L (135-145)
[2025-03-12 10:29] LABS: Hematocrit 29.4 % (42.0-52.0); Hemoglobin 9.7 g/dl (14.0-18.0); Mean Corpuscular HGB Conc 33.0 g/dl (31.0-36.0); Mean Corpuscular Hemoglobin 31.8 pg (27.0-33.0); Mean Corpuscular Volume 96.4 fL (80.0-98.0); NRBC Abs Auto 0.000 X10*3/uL (0.0-0.012); NRBC Pct Auto 0.0 /100WBC (0.0-0.2); Platelet Count 199 X10*3/uL (160-400); Red Blood Count 3.05 X10*6/uL (4.60-5.80); White Blood Count 5.8 X10*3/uL (4.8-10.8)
--- NOTE | 2025-03-12 10:35 | MHC.CM.PN ---
PT MEDICALLY CLEARED FOR DC, CM MET W/PT TO DISCUSS DISPO, STR BED OFFERS REVIEWED AND PT CHOSE [facility] FOR TRANSPORT.
[2025-03-12 11:22] VITALS: BP 134/92; PULSE 87; RESP 16; TEMP 36.9; O2SAT 98
--- NOTE | 2025-03-12 13:17 | P.DS_ITS ---
DS: Providers Provider Date of Service: 03/12/25 Date of admission: 03/09/25 20:35 Date of discharge: 03/12/25 Primary care physician: Amarilis Javier MD Consults: 03/09/25 14:55 ED Recovery Team Consult Stat Comment: Reason for consultation: alcohol abuse, recent orthopedic surgery of right foot with hardware in [place] 03/09/25 20:33 Consult to Orthopedics Routine Consulting Provider: [facility] Reason for consultation: foot fx 03/10/25 10:19 Consult to Gastroenterology Routine Consulting Provider: Neisha Hernández Reason for consultation: BRBPR, r/o GIB, on Eliquis DS: Diagnosis Discharge Diagnosis (1) BRBPR (bright red blood per rectum): Status: Acute (2) Fall at home: Status: Acute (3) Alcohol use disorder: Status: Acute DS: Summary Hospital Course Hospital Course: From the admission HPI: Date of Service: 03/09/25 Chief Complaint: Fall 54-year-old male with a past medical history of hypertension, alcohol use disorder, anxiety, depression, recent diagnosis of pulmonary embolism-on Eliquis presented to the hospital today with a chief complaint of fall. Patient reportedly had a fall at home witnessed by patient's daughter, he tripped and fell onto his knees; denies any pain in his knees. Denies any head strike. Denies any lows of consciousness. Patient mentioned his drinks alcohol on a daily basis about 15 times per day. On also mentions noticing bright red blood per rectum. Denies any lightheadedness or dizziness. Denies any chest pain or palpitations. Denies any urinary symptoms. Review of all other systems is negative except mentioned above ER course: Per ER team, patient had a fall about 3 weeks ago and went to [facility], discharged on a boot, Which patient was not using. Today patient had repeat x-rays of the right foot and noted to have fractures which are similar to the prior x-rays from [facility]. ER team spoke to Orthopedics who mentioned conservative management. Patient also noted to have laceration on the forehead which was sutured in the ER. Orthopedics team suggested p.o. antibiotics for prophylaxis because of the hardware. On labs noted to have elevated creatinine. CT head negative. Stool guaiac was positive as reported by the ER team. No hemorrhoids noted by the ER team during the rectal examination. Patient's hemoglobin is at his baseline around 11. Repeat hemoglobin remained stable. Patient did not have any episodes of bleeding in the ER. Blood pressure is stable. Patient was given phenobarb loading dose. Hospital course Pt was admitted to the hospital for DORIS, generalized weakness, and frequent falls at home in the setting of alcohol use disorder. Pt was treated with IVF, started on phenobarb protocol, and given empiric antibiotics. Pt was seen and evaluated by Orthopedics, who felt that that the acute fractures noted on imaging lined up with [facility] documentation for a few weeks ago and likely did not represent new injury. Pt was treated conservatively with both laceration repair and empiric antibiotics. Overall right foot pain controlled with analgesics. DORIS resolved with IVF. Pt should continue cephalexin 500 mg q.i.d. x3 days, set to complete on 03/15. Per Orthopedics, pt should keep dressing over pin site of right foot, and Keep pin site clean, dry, and intact at all times. Pt should follow up outpatient with Dr. Villalta at [facility] as previously scheduled, as well as proceed with weight-bearing as indicated by [facility] Orthopedics. Pt will be discharged to short-term rehab due to generalized deconditioning with frequent falls at home and risk of further complication of already acute right foot fractures. Anticipated length of stay STR is less than 30 days. For alcohol use disorder, pt was treated with phenobarb protocol and currently scoring 0 on the CIWA. Pt currently denies any withdrawal symptoms. Denies SI/HI. Pt seen and evaluated by recovery team where he declined any Addiction Treatment referrals. Pt is strongly encouraged to abstain from alcohol intake. Continue thiamine, folate multivitamin, and omeprazole. Pt was noted to have hypomagnesemia and received both magnesium IV and oral supplementation. We will be prescribed magnesium oxide 400 mg daily. Pt was also noted have a small amount of BRBPR with a bowel movement. Was seen and evaluated by GI who thought likely secondary to hemorrhoids. Was treated with Anusol suppository which he will be prescribed at discharge. For hx of DVT/PE, continue Eliquis and follow up outpatient with PCP as previously arranged For hypertension continue carvedilol and losartan For mood disorder continue the venlafaxine Time Attestation Discharge Coordination Time (in mins): 35 Quality: Safe Use of Opioids Does Pt have an Active Cancer Diagnosis on the Problem List?: No Quality: Stroke Does the patient have a stroke diagnosis?: No Physical Exam Exam: Exam: General: AOx3, no acute distress. Resp: CTA bilaterally CVS: S1, S2, RRR GI: +BS, NT, no distention Skin: Warm, dry Neuro: Cranial nerves II-XII grossly intact bilaterally. Motor grossly intact bilaterally. Mild upper extremity tremors. No tongue fasciculations Extremities: No edema. Right foot bandaged in clean dressing. Psych: Appropriate affect Vital Signs: Vital Signs: Last Vital Signs Temp 98.5 F 03/12/25 11:22 Pulse 87 03/12/25 11:22 Resp 16 03/12/25 11:22 BP 134/92 H 03/12/25 11:22 Pulse Ox 98 03/12/25 11:22 O2 Del Method Room Air 03/12/25 11:22 BMI result Body Mass Index 21.9 DS: Data Data Completed and Pending Completed studies during hospitalization [Text1]: Procedures Control Bleeding in Gastrointestinal Tract, Via Natural or Artificial Opening Endoscopic (02/20/25) Detoxification Services for Substance Abuse Treatment (02/20/25) Excision of Descending Colon, Via Natural or Artificial Opening Endoscopic, Diagnostic (02/20/25) Excision of Sigmoid Colon, Via Natural or Artificial Opening Endoscopic, Diagnostic (02/20/25) Excision of Stomach, Via Natural or Artificial Opening Endoscopic, Diagnostic (02/20/25) Transfusion of Nonautologous Red Blood Cells into Peripheral Vein, Percutaneous Approach (02/20/25) Labs on day of discharge: Laboratory Results - last 24 hr 03/12/25 03/12/25 06:00 10:04 WBC 5.8 RBC 3.05 L Hgb 9.7 L Hct 29.4 L MCV 96.4 MCH 31.8 MCHC 33.0 RDW 21.0 H Plt Count 199 MPV 10.7 Absolute Nucleated RBC 0.000 Nucleated RBC % (auto) 0.0 Sodium 141 Potassium 3.9 D Chloride 110 H Carbon Dioxide 23 Anion Gap 12 BUN 4 L Creatinine 0.91 Estim Creat Clear Calc 83.3 Estimated GFR > 60 Random Glucose 83 Calcium 8.0 L D Magnesium 1.5 L Discharge Plan Discharge Anticipated Discharge Date/Time: 03/12/25 13:00 Patient Disposition: Xfer SNF Discharge Diagnosis: DORIS and generalized weakness in setting of alcohol use disorder [facility] [Outside] - 1 Day Referral Note: SHORT TERM REHAB Amarilis Lazaor MD [Primary Care Provider, Medical] - 1 Week Discharge Medications: New magnesium oxide 400 mg (241.3 mg magnesium) tablet 400 mg PO DAILY Qty: 90 0RF Rx Instructions: Take on tablet daily. cephalexin 500 mg capsule 500 mg PO QID Qty: 14 0RF Rx Instructions: Take one capsule four times a day for the next 3 days. Complete full course of antibiotics, which should end on 03/15. Preparation H 0.25-14-74.9 % ointment 1 appl DC BID PRN (Reason: hemorrhoids) Qty: 28 0RF Rx Instructions: Apply to hemorrhoids twice a day as needed Continued carvedilol 6.25 mg tablet 6.25 mg PO BID venlafaxine 75 mg capsule,extended release 24hr 75 mg PO DAILY gabapentin 600 mg tablet 600 mg PO TID trazodone 100 mg tablet 100 mg PO BEDTIME losartan 25 mg tablet 25 mg PO DAILY thiamine HCl (vitamin B1) 100 mg tablet 100 mg PO BID folic acid 1 mg tablet 1 mg PO DAILY Eliquis 5 mg tablet 5 mg PO BID cyanocobalamin (vitamin B-12) 1,000 mcg tablet 1,000 mcg PO DAILY acetaminophen 500 mg tablet 1,000 mg PO TID PRN (Reason: moderate pain) pyridoxine (vitamin B6) 50 mg tablet 50 mg PO DAILY omeprazole 40 mg Capsule,Delayed Release(Dr/Ec) 40 mg PO BID@0630,1630 Qty: 0 0RF Discharge Orders: Discharge Order (Routine); Ordered 03/12/25 Ordered By: Ellie Gutierrez Activity on Discharge: As tolerated Stand Alone Forms: Patient Portal Discharge page Print Language: Indonesian Care Plan Goals: See below Health Concerns: Alcohol use disorder Falls at home Acute fractures Electrolyte abnormalities DORIS Plan of Treatment: You were admitted to the hospital for acute kidney injury and generalized weakness with falls at home in the setting use disorder. Here treated IV fluids, empiric antibiotics due to laceration on your right foot close to recent surgical site, and also phenobarb protocol for alcohol withdrawal. Continue empiric antibiotics: Take cephalexin 500 mg 4 times a day for the next 3 days. Take full course of antibiotics, which will be completed on 03/15. You were also seen by orthopedics who recommended keeping pin site of left toe clean, dry, and intact at all times. You will need to follow up with Dr. Villalta at [facility], [address] [facility], [place], . For alcohol withdrawal, continue to take thiamine, folate, and multivitamin supplementation. You have also been prescribed magnesium 40 mg daily. For hemorrhoids, take Anusol suppository as necessary. You should resume all of your othe home medications. Assessment: See discharge summary Discharge Date/Time: 03/12/25 16:01
[2025-03-12 15:24] VITALS: BP 139/91; PULSE 80; RESP 17; TEMP 36.7; O2SAT 97
== END 2025-03-12 16:01 | disposition skilled nursing facility (03) | DRG 394 ==
LOC: HO.ED 20:39 → HO.EDOVER 20:52 → HO.IMC 03-10 07:33
PROVIDERS: Physician Assistant; Admitting Provider Hospitalist; Emergency Provider Emergency Medicine; PCP Internal Medicine; Visit Provider Student in an Organized Health Care Education/Training Program
DX: K64.9 Unspecified hemorrhoids (principal); N17.9 Acute kidney failure, unspecified; I25.10 Atherosclerotic heart disease of native coronary artery without angina pectoris; Y90.8 Blood alcohol level of 240 mg/100 ml or more; I10 Essential (primary) hypertension; S91.111A Laceration without foreign body of right great toe without damage to nail, initial encounter; W19.XXXA Unspecified fall, initial encounter; F32.A Depression, unspecified; F10.90 Alcohol use, unspecified, uncomplicated; Z86.711 Personal history of pulmonary embolism; Z87.891 Personal history of nicotine dependence; Z79.01 Long term (current) use of anticoagulants; Z79.899 Other long term (current) drug therapy
CPT/HCPCS: 36415; 70450; 73630; 80048; 80053; 80307; 81001; 82272; 83690; 83735; 85014; 85018; 85025; 85027; 85610; 85730; 86850; 86900; 86901; 93005; 97162; 99285; J2003; J2560; J3475; J7120; S9485

== ENCOUNTER → 2025-03-09 11:15 | Outpatient (BNV) | payer MEDICARE, MEDICAID, SELFPAY | PROVIDERS: Emergency Provider Emergency Medicine; Visit Provider Radiology Diagnostic Radiology | DX: S62.610A Displaced fracture of proximal phalanx of right index finger, initial encounter for closed fracture (principal); M20.21 Hallux rigidus, right foot | CPT/HCPCS: 73630 ==

== ENCOUNTER → 2025-03-09 11:18 | Outpatient (BNV) | payer MEDICARE, MEDICAID, SELFPAY | PROVIDERS: Visit Provider Internal Medicine Cardiovascular Disease | DX: R53.1 Weakness (principal) | CPT/HCPCS: 93010 ==

== ENCOUNTER 2025-03-09 20:35 | Outpatient (BNV) | payer MEDICARE, MEDICAID, SELFPAY | END 2025-03-10 08:41 | PROVIDERS: Admitting Provider Hospitalist; Emergency Provider Emergency Medicine; Visit Provider Internal Medicine Cardiovascular Disease | DX: F10.90 Alcohol use, unspecified, uncomplicated (principal) | CPT/HCPCS: 93010 ==

== ENCOUNTER → 2025-03-09 20:35 | Outpatient (BNV) | payer MEDICARE, MEDICAID, SELFPAY | PROVIDERS: Admitting Provider Hospitalist; Emergency Provider Emergency Medicine; Visit Provider Student in an Organized Health Care Education/Training Program | DX: K62.5 Hemorrhage of anus and rectum (principal); W19.XXXA Unspecified fall, initial encounter; Y92.009 Unspecified place in unspecified non-institutional (private) residence as the place of occurrence of the external cause; F10.90 Alcohol use, unspecified, uncomplicated | CPT/HCPCS: 99223; 99232; 99239 ==

== ENCOUNTER → 2025-03-09 20:35 | Outpatient (BNV) | payer MEDICARE, MEDICAID, SELFPAY | PROVIDERS: Admitting Provider Hospitalist; Emergency Provider Emergency Medicine; Visit Provider Internal Medicine | DX: K62.5 Hemorrhage of anus and rectum (principal); Z79.01 Long term (current) use of anticoagulants; F10.90 Alcohol use, unspecified, uncomplicated; Z98.890 Other specified postprocedural states; Z86.0100 Personal history of colon polyps, unspecified; W19.XXXA Unspecified fall, initial encounter; Y92.009 Unspecified place in unspecified non-institutional (private) residence as the place of occurrence of the external cause | CPT/HCPCS: 99222; 99232 ==

== ENCOUNTER 2025-05-24 00:26 | Inpatient (IN) | payer MEDICARE, MEDICAID, SELFPAY ==
[2025-05-24] VITALS (11 sets, daily range): BP systolic 104–146; BP diastolic 65–94; PULSE 86–106; RESP 13–21; TEMP 36.6–37.1; O2SAT 95–100; BMI 21.6; BMI 22.0
--- NOTE | ~2025-05-24 | XR_ITS ---
CLINICAL HISTORY: Cough, chest pain, shortness of breath, R O pneumo 2 view chest x-ray Comparison: CT/SR - CT ANGIO CHEST PE PROTOCOL - 02/20/25 05:42 EDT CR - XR CHEST 1V - 08/09/24 01:59 EST Findings: The lungs are clear. Normal size heart. No acute fracture. IMPRESSION: 1. No acute findings. This document has been electronically signed by: Osei Wallis MD on 05/24/2025 01:46:44
--- NOTE | ~2025-05-24 | CT_ITS ---
CLINICAL HISTORY: New onset Microcytic anemia, evaluate for lower GI CT angiography abdomen and pelvis with contrast. 3-D post processing. Comparison: None provided Findings: Aorta, mesenteric/renal arteries, and iliofemoral systems are nondilated and without evidence of dissection. Circumferential calcified plaque involving the distal abdominal aorta and iliac arteries. Celiac artery, SMA, bilateral renal arteries and RONN are patent. Heavy atheromatous plaquing involving the bilateral femoral arteries. The left SFA is patent. Postoperative changes in the right groin. The right SFA appears occluded at its origin. The lung bases are clear. The gallbladder and solid organs are within normal limits. No renal stones. Patent portal vein. No bowel obstruction, pneumoperitoneum, or pneumatosis. Small sliding-type hiatal hernia. Pelvic contents unremarkable. Normal appendix. No fluid collections or adenopathy. The bones are intact. IMPRESSION: No evidence of contrast extravasation into the bowel. No acute findings. Nonaneurysmal aorta with calcified atheromatous plaquing. Additional findings as above. This document has been electronically signed by: Bella Saldana MD on 05/24/2025 05:04:05
--- NOTE | ~2025-05-24 | US_ITS ---
EXAMINATION: US TRIPLEX LOWER EXTREMITY, BILATERAL CLINICAL INFORMATION: Significant pain in both lower extremities COMPARISON: None available. TECHNIQUE: Color-flow triplex imaging with spectral analysis and compression Doppler were performed on the bilateral lower extremities. FINDINGS: Respiratory variation, normal compression and augmented flow are noted throughout the bilateral lower extremities. The visualized common femoral vein, superficial femoral vein, profunda femoral vein, popliteal vein and midcalf peroneal and posterior tibial venous segments show no evidence of deep venous thrombosis bilaterally. Right greater saphenous vein is harvested. There is no Ferrell's cyst. US/US venous duplex LE BI IMPRESSION: No evidence of deep venous thrombosis involving the bilateral lower extremities. Electronically signed by: Pankaj Davison MD 05/24/2025 03:27 PM EDT
--- NOTE | 2025-05-24 00:57 | ED.CHESTPAIN ---
HPI - Chest Pain General Chief Complaint: Extremity Problem Stated Complaint: R Leg Pain/Weakness Time Seen by Provider: 05/24/25 00:43 Source: patient Mode of arrival: EMS Limitations: no limitations History of Present Illness ED Provider: Dr. 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 Patient states that the pain in his right lower extremity is has been come more severe over the past 4 days. 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 Patient states he is taking gabapentin for his pain but he is not working. He states that he was on oxycodone but he is no longer taking this medication.. He denies any swelling of his lower extremities. Patient states that he drank 6 shots of apple fireball last night prior to coming to the emergency department. Related Data Home Medications ?Medication ?Instructions ?Recorded ?Confirmed acetaminophen 500 mg tablet 1,000 mg PO TID PRN moderate pain 02/20/25 05/24/25 carvedilol 6.25 mg tablet 6.25 mg PO BID 02/20/25 05/24/25 cyanocobalamin (vitamin B-12) 1,000 mcg PO DAILY 02/20/25 05/24/25 1,000 mcg tablet folic acid 1 mg tablet 1 mg PO DAILY 02/20/25 05/24/25 gabapentin 600 mg tablet 600 mg PO TID 02/20/25 05/24/25 losartan 25 mg tablet 25 mg PO DAILY 02/20/25 05/24/25 pyridoxine (vitamin B6) 50 mg 50 mg PO DAILY 02/20/25 05/24/25 tablet thiamine HCl (vitamin B1) 100 mg 100 mg PO BID 02/20/25 05/24/25 tablet trazodone 100 mg tablet 100 mg PO BEDTIME 02/20/25 05/24/25 venlafaxine 75 mg capsule,extended 75 mg PO DAILY 02/20/25 05/24/25 release 24 hr Previous Rx's ?Medication ?Instructions ?Recorded omeprazole 40 mg capsule,delayed 40 mg PO BID@0630,1630 #0 caps 02/24/25 release magnesium oxide 400 mg (241.3 mg 400 mg PO DAILY #90 tabs 03/12/25 magnesium) tablet phenylephrine 0.25 %-mineral oil 1 appl [place] BID PRN hemorrhoids #28 03/12/25 14 %-petrolatm 74.9 % rectal grams ointment (Preparation H) apixaban 5 mg tablet (Eliquis) 5 mg PO BID 30 days #60 tabs 05/26/25 Allergies Allergy/AdvReac Type Severity Reaction Status Date / Time No Known Allergies Allergy Verified 05/24/25 00:53 Review of Systems Review of Systems: Yes all other systems are reviewed and are negative [facility] Past Medical History [facility] Narrative: Social history: He smokes 5 cigarettes per day. He does drink alcohol and states he had sticks shots of apple Fireball whiskey prior to coming to the emergency department. He denies injection drug use. He states he smokes marijuana every other day. Medical History CVA (cerebral vascular accident) PVD (peripheral vascular disease) Laceration of foot, right Chronic pain of both lower extremities Microcytic anemia Pulmonary embolism History of recurrent deep vein thrombosis (DVT) History of thrombolytic therapy Fall at home On continuous oral anticoagulation Atherosclerotic cardiovascular disease Surgical History History of colonoscopy with polypectomy Social History Social History Household Members: Children Housing: Apartment Are you a primary primary health care nurse to a significant other at home: No Do you presently have visiting nurse or other home services: No Alcohol intake: current Alcohol intake frequency: a few times a month Alcohol type: beer and hard liquor Patient Tobacco Use Status: Current someday Tobacco user Tobacco use type: Cigarette Cigarettes Per Day: 4 Years Smoked: 40 years e-Cigarette/Vaping Use: Never Used Second Hand Smoke Exposure: No Substance Use Type: Marijuana Advance Directives Date on File: 03/09/25 service: No Physical Exam Vital Signs: Vital Signs: Last Vital Signs Temp 97.6 F 05/26/25 11:20 Pulse 92 05/26/25 11:20 Resp 16 05/26/25 11:20 BP 135/87 05/26/25 11:20 Pulse Ox 99 05/26/25 11:20 O2 Del Method Room Air 05/26/25 11:20 BMI result Body Mass Index 21.6 Vital signs revealed an elevated blood pressure of 146/89 otherwise unremarkable Exam: General: Awake, alert in no distress, the patient has a productive sounding cough Head: Normocephalic, atraumatic EENT: PERRL, sclera and conjunctiva are normal, mouth with no erythema or exudates Neck: Supple, no adenopathy Lung: breath sounds symmetric, no wheezing, no rales , diffuse rhonchi Chest: symmetric movement, nontender Heart: regular rate and rhythm, normal S1, S2 no murmurs or rubs Abdomen: soft, non-tender, nondistended, normal bowel sounds Rectal: Large hemorrhoid, nonthrombosed, nonbleeding, stool was brown and negative for occult blood Back: no vertebral tenderness, no CVAT Extremities: no deformities, moves all extremities symmetrically, no edema, no asymmetry Neuro: Awake, alert, oriented, normal speech, cranial nerves 2-12 intact, moves all extremities symmetrically Psych: Pleasant, cooperative Medications Administered Discontinued Medications Generic Name Dose Route Start Last Admin Trade Name Freq PRN Reason Stop Dose Admin Acetaminophen 650 mg 05/24/25 05:24 05/26/25 05:45 Acetaminophen 325 Mg Tablet PO 650 mg Q6H PRN Administration Pain, Mild 1-3,fever,headache Apixaban 5 mg 05/24/25 01:01 05/24/25 01:40 Apixaban 5 Mg Tablet PO 05/24/25 01:02 5 mg ONCE ONE Administration Apixaban 5 mg 05/24/25 09:00 05/26/25 08:27 Apixaban 5 Mg Tablet PO 5 mg BID RUBINA Administration Cyanocobalamin 1,000 mcg 05/24/25 15:00 05/26/25 08:27 Cyanocobalamin (Vitamin B-12) 1,000 Mcg Tablet PO 1,000 mcg DAILY RUBINA Administration Folic Acid 1 mg 05/24/25 09:00 05/26/25 08:28 Folic Acid 1 Mg Tablet PO 1 mg DAILY RUBINA Administration Gabapentin 600 mg 05/24/25 15:00 05/26/25 08:28 Gabapentin 600 Mg Tablet PO 600 mg TID RUBINA Administration Iohexol 80 ml 05/24/25 03:32 05/24/25 03:33 Iohexol 350 Mg/Ml 100 Ml Infus..Btl IV 05/24/25 03:33 80 ml ONCE ONE Administration Magnesium Oxide 400 mg 05/24/25 15:00 05/26/25 08:27 Magnesium Oxide 400 Mg Tablet PO 400 mg DAILY RUBINA Administration Omeprazole 40 mg 05/24/25 16:30 05/26/25 05:43 Omeprazole 40 Mg Capsule.Dr PO 40 mg BID@0630,1630 RUBINA Administration Ondansetron HCl 4 mg 05/24/25 05:24 05/24/25 11:13 Ondansetron Hcl 4 Mg/2 Ml Vial IVPUSH 4 mg Q8H PRN Administration Nausea and Vomiting Oxycodone HCl 10 mg 05/24/25 01:01 05/24/25 01:40 Oxycodone Hcl Immed Release 5 Mg Tablet PO 05/24/25 01:02 10 mg ONCE STA Administration Oxycodone HCl 5 mg 05/24/25 06:22 05/24/25 10:57 Oxycodone Hcl Immed Release 5 Mg Tablet PO 5 mg Q4H PRN Administration Pain, Severe (Pain Scale 7-10) Oxycodone HCl 5 mg 05/25/25 19:54 05/25/25 20:04 Oxycodone Hcl Immed Release 5 Mg Tablet PO 05/25/25 19:55 5 mg ONCE ONE Administration Pantoprazole Sodium 80 mg 05/24/25 02:53 05/24/25 04:12 Pantoprazole Sodium 40 Mg/10 Ml Vial IVPUSH 05/24/25 02:54 80 mg ONCE ONE Administration Phenobarbital 300 mg 05/24/25 17:45 05/24/25 18:57 Phenobarbital 100 Mg Tablet PO 05/24/25 17:46 300 mg ONCE ONE Administration Phenobarbital 200 mg/ 230 mg 05/24/25 21:00 05/25/25 01:10 Phenobarbital 30 mg PO 05/25/25 00:01 Not Given Q3H [facility] Phenobarbital 45 mg 05/25/25 09:00 05/26/25 08:28 Phenobarbital 15 Mg Tablet PO 05/26/25 21:01 45 mg BID RUBINA Administration Pyridoxine HCl 50 mg 05/24/25 15:00 05/26/25 08:27 Pyridoxine Hcl (Vitamin B6) 50 Mg Tablet PO 50 mg DAILY RUBINA Administration Sodium Chloride 3 ml 05/24/25 08:00 05/26/25 08:31 0.9 % Sodium Chloride Flush 3 Ml Syringe IVFLUSH 3 ml QSHIFT RUBINA Administration Thiamine HCl 100 mg 05/24/25 09:00 05/26/25 08:27 Thiamine Hcl 100 Mg Tablet PO 100 mg DAILY RUBINA Administration Trazodone HCl 100 mg 05/24/25 21:00 05/25/25 20:04 Trazodone Hcl 100 Mg Tablet PO 100 mg BEDTIME RUBINA Administration Venlafaxine HCl 75 mg 05/24/25 15:00 05/26/25 08:27 Venlafaxine Hcl Er 75 Mg Cap.Er.24h PO 75 mg DAILY RUBINA Administration Medical Decision Making Medical Decision Making MDM Narrative: 54 year old male with history of alcohol use disorder, 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 Patient states that the pain in his right lower extremity is has been come more severe over the past 4 days. 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 Patient states he is taking gabapentin for his pain but he is not working. He states that he was on oxycodone but he is no longer taking this medication.. He denies any swelling of his lower extremities. Patient states that he drank 6 shots of apple fireball last night prior to coming to the emergency department. Vital signs were unremarkable. Patient does have a productive sounding cough. Lung exam revealed diffuse rhonchi. No significant abnormalities noted of the lower extremities, no asymmetry. Differential diagnosis: ?Includes but is not limited to bronchitis, pneumonia, viral infection, COVID-19, influenza, pulmonary embolism, DVT, alcohol intoxication, anemia, electrolyte abnormalities Course: 01:09 Laboratory evaluation was ordered, EKG and chest x-ray will be obtained. Patient was given oxycodone 10 mg orally for his right lower extremity pain. Patient has history of recurrent DVTs and has been off his Eliquis for 4 days. Ascending exam I do not think that he has a recurrence in his DVT. He was given Eliquis 5 mg orally here in the emergency department. Since the patient has lack of transportation and I will send a prescription to our pharmacy for Eliquis 5 mg q.12 hours, dispensed 90 day supply. 02:30 My interpretation patient's laboratory evaluation is as follows: Microcytic anemia with an H&H of 6.7 and 23.5 with an MCV of 79.9. Patient does have chronic anemia however today's values are significantly lower than 03/19/2025 when the patient's H&H was 8.6 and 27.2 with an MCV of 96.5. Platelet count was elevated 443,000. Sodium elevated 148. Chloride elevated 114. Bicarb low 20. LFTs were normal. Lipase was normal. Ethanol elevated 245. Chest x-ray revealed no evidence of pneumonia. COVID 19 and influenza tests were negative. Patient's cough and chest pain is most likely secondary to viral URI or his smoking. Given the patient's drop in his H&H, I am concerned that he may have a lower GI bleed. Patient states that he has had colonoscopies in the past in his had least 6-8 polyps removed. Patient's occult stool test was negative at this time. I did order 1 unit of packed red blood cells transfused. The patient will need to be admitted to trend his H&H. 02:52 I did discuss the patient's presentation over [facility] with the covering hospitalist, Dr. Cheng. After this discussion, I ordered CT abdomen pelvis GI bleed protocol, Protonix 80 mg IV. I also ordered CIWA protocol q.4 hours to follow the patient for possible alcohol withdrawal. At the end of my shift, I did turn over the patient's care to my colleague, physician internal medicine physician assistant Taz Galvin. Differential Diagnosis Differential Diagnoses: The differential diagnosis associated with the presentation includes (See above) Admission/Observation Consideration of admission/observation: Escalation of care including admission/observation considered (Yes) Consult Healthcare Provider Management of the patient was discussed with: Hospitalist Lab Data MDM Lab Attestation statement: I reviewed the patient's lab results. 05/26/25 08:36 05/26/25 08:36 Labs: Lab Results 05/24/25 05/24/25 05/24/25 Range/Units 01:29 01:30 03:35 WBC 7.3 (4.8-10.8) X10*3/uL RBC 2.94 L (4.60-5.80) X10*6/uL Hgb 6.7 L* D (14.0-18.0) g/dl Hct 23.5 L (42.0-52.0) % MCV 79.9 L (80.0-98.0) fL MCH 22.8 L (27.0-33.0) pg MCHC 28.5 L (31.0-36.0) g/dl RDW 19.6 H (11.0-16.0) % Plt Count 443 H D (160-400) X10*3/uL MPV 9.6 (9.4-12.4) fL Immature Gran % (Auto) 0.1 (0.0-0.4) % Neut % (Auto) 36.4 L (45-73) % Lymph % (Auto) 45.9 H (20-40) % [place] % (Auto) 10.1 (2-11) % Eos % (Auto) 5.9 H (0-4) % Baso % (Auto) 1.6 (0-2) % Lymph # (Auto) 3.4 (1.2-4.9) X10*3/uL [place] # (Auto) 0.7 (0.1-1.2) X10*3/uL Eos # (Auto) 0.4 (0.0-0.4) X10*3/uL Baso # (Auto) 0.1 (0.0-0.2) X10*3/uL Abs Immat Gran (auto) 0.01 (0.00-0.03) X10*3/uL Absolute Neuts (auto) 2.7 (2.0-8.3) x10*3/uL Absolute Nucleated RBC 0.000 (0.0-0.012) X10*3/uL Nucleated RBC % (auto) 0.0 (0.0-0.2) /100WBC Absolute Retic 0.041 (0.026-0.095) X10*6/uL Percent Retic 1.4 (0.5-1.8) % Immature Retic Fraction 39.2 H (2.3-13.4) % Retic Hgb Equivalent 17.8 L (30.0-35.0) pg PT 11.8 D (10.9-12.4) SEC INR 1.0 (0.9-1.1) APTT 30.4 (26.7-34.1) SEC D-Dimer High Sensitivty 306 NG/ML Sodium 148 H (135-145) mmol/L Potassium 4.3 (3.3-5.1) mmol/L Chloride 114 H (96-108) mmol/L Carbon Dioxide 20 L (22-29) mmol/L Anion Gap 18 (12-20) BUN 5 L (9-16) mg/dL Creatinine 1.20 (0.5-1.4) mg/dL Estim Creat Clear Calc 62.2 Estimated GFR > 60 Random Glucose 93 (60-115) mg/dL Calcium 9.2 (8.4-10.2) mg/dL Total Bilirubin 0.1 (0.0-1.0) mg/dL AST 34 (5-37) U/L ALT 9 (0-40) U/L Alkaline Phosphatase 82 (39-117) U/L Troponin I High Sens 2.7 (<3.5-35.0) ng/L Total Protein 7.6 (6.5-8.0) g/dL Albumin 4.4 (3.5-5.0) g/dL Lipase 53 (8-78) U/L Stool Occult Blood NEGATIVE (NEGATIVE) Ethyl Alcohol 245 mg/dL COVID-19 (ABRAHAM) Negative (Negative) COVID-19 Clin Com See Note Influenza Type A (NANO) Negative (Negative) Influenza Type B (NANO) Negative (Negative) Influenza A & B Note See Note Blood Type O Positive Antibody Screen NEGATIVE Crossmatch See Detail Independent Interpretation I performed an independent interpretation of an: EKG Interpretation: My independent interpretation patient's 12 EKG done on 05/24/2025 at 01:24 hours is as follows: Normal sinus rhythm with a rate of 97, normal [place] interval, QRS duration QTC interval, no ST segment elevation, no ST segment depression. External Record Review External record reviewed: Inpatient record Chronic Conditions Patient?s care impacted by: Other (Alcohol use disorder) Critical Care Time Critical Care Time Critical Care Time: Yes Total Critical Care Time: 45 Attestation: Critical Care: The patient was critically ill with a high probability of imminent or life threatening deterioration. I spent greater than 30 minutes of discontinuous time evaluating the patient,delivering critical care at the bedside, discussing and evaluating pertinent data with consultants. Critical care time does not include time spent performing separately billable procedures or teaching. Total time spent performing critical care was 45 minutes. Discharge Plan Discharge Clinical Impression: Microcytic anemia, Chest pain, Cough, Chronic pain of both lower extremities, History of recurrent deep vein thrombosis (DVT), History of thrombolytic therapy Patient Disposition: Admitted As Inpatient Interventions: Admission Worksheet (ED) Last Done: 05/24/25 19:57 Discharge Date/Time: 05/24/25 20:16
--- NOTE | 2025-05-24 01:02 | ECG_ITS ---
Test Reason : CP Blood Pressure : */* mmHG Vent. Rate : 97 BPM Atrial Rate : 97 BPM P-R Int : 196 ms QRS Dur : 82 ms QT Int : 350 ms P-R-T Axes : 68 39 45 degrees QTcB Int : 444 ms Normal sinus rhythm Normal ECG When compared with ECG of 10-Mar-2025 08:41, Vent. rate has increased by 32 bpm Referred By: Contreras Barraza Electronically Signed By: Raheem More
[2025-05-24 01:38] LABS: Hematocrit 23.5 % (42.0-52.0); Imm Gran Abs Auto 0.01 X10*3/uL (0.00-0.03); Imm Gran Pct Auto 0.1 % (0.0-0.4); Lymphocytes Absolute Auto 3.4 X10*3/uL (1.2-4.9); MANUAL DIFF FLAG NO; Mean Corpuscular HGB Conc 28.5 g/dl (31.0-36.0); Mean Corpuscular Hemoglobin 22.8 pg (27.0-33.0); Mean Corpuscular Volume 79.9 fL (80.0-98.0); NRBC Abs Auto 0.000 X10*3/uL (0.0-0.012); NRBC Pct Auto 0.0 /100WBC (0.0-0.2); Platelet Count 443 X10*3/uL (160-400); Red Blood Count 2.94 X10*6/uL (4.60-5.80); White Blood Count 7.3 X10*3/uL (4.8-10.8)
[2025-05-24] MEDS: oxyCODONE HCl Immed Release 5 MG TABLET 10 MG PO (01:40)
[2025-05-24 01:58] LABS: COVID-19 Test Negative (Negative); IDNOW Serial# 58CA691E
[2025-05-24 01:58] LABS: IDNOW Serial# 55D5AD1C; Influenza B2 Negative (Negative)
[2025-05-24 02:02] LABS: Partial Thromboplastin Time 30.4 SEC (26.7-34.1)
[2025-05-24 02:02] LABS: Troponin-I High Sensitivity 2.7 ng/L (<3.5-35.0)
[2025-05-24 02:08] LABS: Alanine Aminotransferase 9 U/L (0-40); Albumin Level 4.4 g/dL (3.5-5.0); Alkaline Phosphatase 82 U/L (39-117); Anion Gap 18 (12-20); Aspartate Amino Transferase 34 U/L (5-37); Blood Urea Nitrogen 5 mg/dL (9-16); Calcium 9.2 mg/dL (8.4-10.2); Carbon Dioxide 20 mmol/L (22-29); Chloride 114 mmol/L (96-108); Creatinine Clr Calc Pharmacy 62.2; Estimated Glomerular Filt Rate > 60; Hemoglobin 6.7 g/dl (14.0-18.0); Lipase 53 U/L (8-78); Potassium 4.3 mmol/L (3.3-5.1); Sodium 148 mmol/L (135-145); Total Protein 7.6 g/dL (6.5-8.0)
[2025-05-24] MEDS: iohexoL 350 MG/ML 100 ML INFUS..BTL 80 ML IV (03:33)
[2025-05-24 03:43] LABS: OBS Int Ctl Valid YES; OBS1 NEGATIVE (NEGATIVE)
--- NOTE | 2025-05-24 05:26 | PM.IMHP ---
History of Present Illness Date of Service: 05/24/25 Attending physician on admission: Toma Rhodes Chief Complaint: leg pain Pt is a 54 yo male with PMH PVD with recent metal don removed from R big toe, arterial bypass to lower extremity, CAD, hiatal hernia, Schatzki ring, erosive esophagitis, duodenitis, diverticulosis, colon polyps, internal hemorrhoids, PCI with stent x1, CVA with no obvious deficits, PE/ DVT currently on Eliquis but missed the last 4 days, microcytic anemia, alcohol use disorder, tobacco use, occasional marijuana use is currently [place] for intense right lower leg pain which is considered chronic but patient was concerned. Patient states he was not able to take his Eliquis as he ran out and was waiting for a prescription to be [facility]. Incidentally patient did report drinking alcohol prior to coming into the ED and this included 6 shots of fireball due to depression and chronic pain. Prior to this patient had not had any alcohol for months. Patient is not diagnosed with cirrhosis but patient believes he does have some problems with his liver. Patient denies any history of IV drug abuse or illicit drug use and does not have history of hepatitis-B or C. Patient denies any current , heartburn chest pain, shortness of breath at rest, productive cough, nausea or vomiting. Patient is not having any constipation or diarrhea. Patient denies any melena or dark tarry stool. Patient denies any spontaneous bleeding including epistaxis, hemoptysis or hematuria. Patient does follow with his PCP and vascular and has upcoming appointments with in the next 2 weeks. Patient has not outpatient CT scan plan with vascular. There has been discussion of possible amputation of right lower extremity. Patient denies any open wounds on either extremities. Patient recently did have a metal don removed from his right big toe. Patient was seen in the emergency department and workup included CBC which noted in hemoglobin of 6.7. Stool for occult currently negative but patient has history of past positive occult. Patient currently receiving 1 unit of PRBCs. Hemodynamics have been stable. Chest x-ray negative for pneumonia. COVID 19 and influenza testing was negative. Per ED provider patient had reported earlier some upper respiratory symptoms with noted rhonchi on exam which are currently resolved and is suspected patient may have had a viral infection along with emphysema noting he is an active smoker. On exam ED provider did find a large hemorrhoid nonthrombosed nonbleeding. Review of Systems Review of Systems: Patient currently denies any chest pain, shortness of breath at rest or with exertion. Patient is not having a productive cough. Patient denies any fever, chills, night sweats. Patient reports chronic pain in his right lower extremity and often times in both lower extremities with little relief on gabapentin and oxycodone. Patient denies any open wounds or recent falls. Patient denies any dizziness lightheadedness or recent syncopal episodes. Yes all other systems are reviewed and are negative [facility] Medical History CVA (cerebral vascular accident) PVD (peripheral vascular disease) Laceration of foot, right Chronic pain of both lower extremities Microcytic anemia Pulmonary embolism History of recurrent deep vein thrombosis (DVT) History of thrombolytic therapy Fall at home On continuous oral anticoagulation Atherosclerotic cardiovascular disease Cognitive capacity: Alert and orientated x3 Functional capacity: uses cane/walker Surgical History History of colonoscopy with polypectomy Social History Household Members: Family Housing: House Are you a primary adult day care worker to a significant other at home: No Do you presently have visiting nurse or other home services: No Alcohol intake: current Alcohol intake frequency: a few times a month Alcohol type: beer and hard liquor Patient Tobacco Use Status: Former Tobacco user Tobacco use type: Cigarette Years Smoked: 40 years Smoked in Last 30 Days: Yes Second Hand Smoke Exposure: No Use of substances other than those prescribed or required for medical reasons: Yes Substance Use Type: Marijuana Substance Use Frequency: Daily Advance Directives: Yes Advance Directives on File: Yes Advance Directives Date on File: 03/09/25 Do you have a plan to hurt others: No Plan service: No Meds Allergies Allergy/AdvReac Type Severity Reaction Status Date / Time No Known Allergies Allergy Verified 05/24/25 00:53 Active Medications: Current Medications Acetaminophen (Acetaminophen 325 Mg Tablet) 650 mg PO Q6H PRN PRN Reason: Pain, Mild 1-3,fever,headache Albuterol/Ipratropium (Albuterol/Iprat 2.5/0.5mg 3 Ml Ampul.Neb) 3 ml INHALE Q4H PRN PRN Reason: Shortness of Breath/Wheezing Calcium Carbonate (Calcium Carbonate 750 Mg Tab.Chew) 750 mg PO Q4H PRN PRN Reason: Heartburn Magnesium Hydroxide (Milk Of Magnesia 30 Ml Oral.Susp) 30 ml PO DAILY PRN PRN Reason: Constipation Melatonin (Melatonin 3 Mg Tablet) 6 mg PO BEDTIME PRN PRN Reason: Insomnia Ondansetron HCl (Ondansetron Hcl 4 Mg/2 Ml Vial) 4 mg IVPUSH Q8H PRN PRN Reason: Nausea and Vomiting Polyethylene Glycol (Polyethylene Glycol 3350 17 Gm Powd.Pack) 17 gm PO DAILY PRN PRN Reason: Constipation Sodium Chloride (0.9 % Sodium Chloride Flush 3 Ml Syringe) 3 ml IVFLUSH [facility] Medications ?Medication ?Instructions ?Recorded ?Confirmed ?Last Taken ?Type acetaminophen 500 mg tablet 1,000 mg PO TID PRN moderate pain 02/20/25 03/09/25 03/08/25 History carvedilol 6.25 mg tablet 6.25 mg PO BID 02/20/25 03/09/25 03/09/25 History cyanocobalamin (vitamin B-12) 1,000 mcg PO DAILY 02/20/25 03/09/25 03/08/25 History 1,000 mcg tablet folic acid 1 mg tablet 1 mg PO DAILY 02/20/25 03/09/25 03/08/25 History gabapentin 600 mg tablet 600 mg PO TID 02/20/25 03/09/25 03/09/25 History losartan 25 mg tablet 25 mg PO DAILY 02/20/25 03/09/25 03/08/25 History pyridoxine (vitamin B6) 50 mg 50 mg PO DAILY 02/20/25 03/09/25 03/09/25 History tablet thiamine HCl (vitamin B1) 100 mg 100 mg PO BID 02/20/25 03/09/25 03/08/25 History tablet trazodone 100 mg tablet 100 mg PO BEDTIME 02/20/25 03/09/25 03/08/25 History venlafaxine 75 mg capsule,extended 75 mg PO DAILY 02/20/25 03/09/25 03/08/25 History release 24 hr Physical Exam Vital Signs and Narrative: Vital Signs: Last Vital Signs Temp 98.3 F 05/24/25 05:05 Pulse 93 05/24/25 05:05 Resp 15 05/24/25 05:05 BP 129/86 05/24/25 05:05 Pulse Ox 96 05/24/25 04:00 O2 Del Method Room Air 05/24/25 04:00 BMI result Body Mass Index 21.6 Alert and orientated X3, able to give good history. Neuro: CN II-X11 intact, visual acuity intact, no obvious deficits EYES: PERRLA, EOM intact, sclerae nonicteric, conjunctiva slightly pale ENT: hearing intact, no issues with swallowing, uvula midline, lips moist, nares patent no epistaxis Cardiac: S1 S2 RRR, no murmur, no JVD, no edema in Lower ext Pulmonary: lungs diminished bilaterally, no adventitious sounds Abdominal: BS active in all 4 quadrants, no guarding, tenderness, rebounding, scarring beneath the umbilicus MSK: strength 4/5 upper and lower extremities : no CVA tenderness no bladder distension Extremities: no edema in lower extremities, PT and DP pulses palpable +2, right lower leg temperature slightly cooler than left lower extremity, no cyanosis noted, no open wounds, capillary refill within normal limits Psych: mood stable, judgement and insight good Skin: No new rashes or lesions Results Labs 05/24/25 01:29 05/24/25 01:29 Labs: Laboratory Results - last 24 hr 05/24/25 05/24/25 05/24/25 01:29 01:30 03:35 MCV 79.9 L MCH 22.8 L MCHC 28.5 L RDW 19.6 H Plt Count 443 H D MPV 9.6 Immature Gran % (Auto) 0.1 Neut % (Auto) 36.4 L Lymph % (Auto) 45.9 H [place] % (Auto) 10.1 Eos % (Auto) 5.9 H Baso % (Auto) 1.6 Lymph # (Auto) 3.4 [place] # (Auto) 0.7 Eos # (Auto) 0.4 Baso # (Auto) 0.1 Abs Immat Gran (auto) 0.01 Absolute Neuts (auto) 2.7 Absolute Nucleated RBC 0.000 Nucleated RBC % (auto) 0.0 APTT 30.4 Anion Gap 18 Estim Creat Clear Calc 62.2 Estimated GFR > 60 Random Glucose 93 Calcium 9.2 Total Bilirubin 0.1 AST 34 ALT 9 Alkaline Phosphatase 82 Troponin I High Sens 2.7 Total Protein 7.6 Albumin 4.4 Lipase 53 Stool Occult Blood NEGATIVE Ethyl Alcohol 245 COVID-19 ([facility]) Negative COVID-19 Clin Com See Note Influenza Type A (NANO) Negative Influenza Type B (NANO) Negative Influenza A & B Note See Note Blood Type O Positive Antibody Screen NEGATIVE Crossmatch See Detail ECG Attestation: I personally reviewed and interpreted this ECG as follows: (Normal sinus rhythm QTC 444 no ischemic changes) Prior ECG tracings: available for review Imaging Radiologist's Impressions: CT abdomen and pelvis IMPRESSION: No evidence of contrast extravasation into the bowel. No acute findings. Nonaneurysmal aorta with calcified atheromatous plaquing. Additional findings as above. Chest x-ray Negative for acute findings Assessment and Plan (1) Alcohol use disorder: Status: Acute (2) Acute anemia: Status: Acute Plan Pt is a 54 yo male with PMH PVD with recent metal don removed from R big toe, arterial bypass to lower extremity, CAD, hiatal hernia, Schatzki ring, erosive esophagitis, duodenitis, diverticulosis, colon polyps, internal hemorrhoids, PCI with stent x1, CVA with no obvious deficits, PE/ DVT currently on Eliquis but missed the last 4 days, microcytic anemia, alcohol use disorder, tobacco use, occasional marijuana use is currently homeless [place] for intense right lower leg pain which is considered chronic but patient became concerned. Patient being admitted for acute anemia. Patient did use alcohol earlier on the day with history of alcohol use disorder. Acute anemia with recent upper and lower scope and known Schatzki ring, erosive esophagitis, duodenitis and diverticulosis GI consulted May need Hematology if no GI source Iron panel, B12, reticulocyte and erythropoietin pending Stool for occult negative x1, we will repeat Protonix IV b.i.d. NPO Hemodynamics have remained stable Monitor CBC Patient transfuse 1 unit of PRBCs so far, hemodynamics stable, no obvious or spontaneous bleeding found Large hemorrhoid found on exam Non thrombotic, nonbleeding per ED provider Alcohol use disorder Last drink 05/23/2025, 6 shots of fireball CIWA ordered LFTs WNL No history of seizures reported with withdrawal Thiamine and folic acid Addictions consulted History of DVT/PE on Eliquis Patient has been off his Eliquis for the last 4 days, per patient prescription renewal pending Eliquis resumed in the ED noting patient's significant history with blood clots, noting current acute anemia issues Doppler studies of bilateral lower extremities ordered D-dimer pending, low likelihood of PE noting patient's stable respiratory status PVD Patient follows with vascular as an outpatient Consider inpatient consultation for any acute findings that may arise Has chronic peripheral vascular disease issues for years Next outpatient visit is within the next [address] scan GERD Protonix IV b.i.d. Hypertension Continue Coreg and losartan Renal function stable Heart rate within normal limit DVT prophylaxis: Eliquis, resumed in the emergency department noting patient's PVD and clotting history Med rec pending Full Code status Patient requires at least 2 midnights for inpatient care, management of acute anemia to include blood transfusion, expert consultation with GI and possibly heme and vascular. Quality Stroke Does the patient have a stroke diagnosis?: No Reason for No Anti-thrombotic by Day Two: N/A - Med Ordered VTE Prior VTE?: Yes VTE Risk Level:: Medical - moderate - high VTE Device Contraindication: N/A - Device Ordered VTE Drug Contraindication: Treatment Not Indicated
[2025-05-24 05:29] LABS: Cannabinoid Screen Urine POSITIVE (Not Detect)
[2025-05-24 06:33] LABS: D Dimer High Sensitivity 306 NG/ML
[2025-05-24 06:35] LABS: INTERNATIONAL NORM RATIO 1.0 (0.9-1.1); Prothrombin Time 11.8 SEC (10.9-12.4)
[2025-05-24 06:45] LABS: Reticulocytes Absolute 0.041 X10*6/uL (0.026-0.095)
--- NOTE | 2025-05-24 07:44 | P.CNGI_ITS ---
History of Present Illness Data of Consult Service Date: 05/24/25 Requesting physician: Kamilah Buck Primary Care Provider: Amarilis Javier MD HPI Reason for consult: acute anemia, r/o GI source 54 YM with PVD with recent metal don removed from R big toe, arterial bypass to lower extremity, CAD, hiatal hernia, Schatzki ring, erosive esophagitis, duodenitis, diverticulosis, colon polyps, internal hemorrhoids, PCI with stent x1, CVA with no obvious deficits, PE/ DVT currently on Eliquis but missed the last 4 days, microcytic anemia, alcohol use disorder, tobacco use, occasional marijuana use is currently homeless [place] for intense right lower leg pain which is considered chronic but patient was concerned. Patient stated he was not able to take his Eliquis as he ran out and was waiting for a [facility] Incidentally patient did report drinking alcohol prior to coming into the ED and this included 6 shots of fireball due to depression and chronic pain. Prior to this patient had not had any alcohol for months. Patient is not diagnosed with cirrhosis but patient believes he does have some problems with his liver. Patient denies any history of IV drug abuse or illicit drug use and does not have history of hepatitis-B or C. Patient denies any current , heartburn chest pain, shortness of breath at rest, productive cough, nausea or vomiting. Patient is not having any constipation or diarrhea. Patient denies any melena or dark tarry stool. Patient denies any spontaneous bleeding including epistaxis, hemoptysis or hematuria. Social history: Patient admits to smoking 5 cigarettes per day and drinking alcohol and states he had sticks shots of apple Fireball whiskey prior to coming to the emergency department. He denies injection drug use. He states he smokes marijuana every other day. Patient does follow with his PCP and vascular and has upcoming appointments with in the next 2 weeks. Patient has not outpatient CT scan plan with vascular. There has been discussion of possible amputation of right lower extremity. Patient denies any open wounds on either extremities. Patient recently did have a metal don removed from his right big toe. Labs in ED showed hemoglobin of 6.7. Stool for occult blood was negative but patient has history of past positive occult. Pt was transfused 1 unit of PRBCs overnight. Hemodynamics have been stable. Chest x-ray negative for pneumonia. COVID 19 and influenza testing was negative. On exam ED provider did find a large hemorrhoid nonthrombosed nonbleeding 05/24/[address] SCAN SHOWED: No evidence of contrast extravasation into the bowel. No acute findings. Nonaneurysmal aorta with calcified atheromatous plaquing. Additional findings as above. 02/22/25 EGD AND COLONOSCOPY WERE PERFORMED BY DR. BUTLER: Endoscopy Findings: hiatal hernia schatzki ring erosive esophagitis duodenitis Colonoscopy Findings: diverticulosis colon polyps x 2 internal hemorrhoids Plan: Await Pathology results Repeat Colonoscopy in 3-4 years or earlier if clinically indicated High fiber diet leaflet avoid straining at stool, epsom salts and sitz bath, anusol supps or cream GI bleeding prob from erosive esophagitis and duodenitis, hemorrhoids, needs to remain alcohol free high dose PPI, and restart anticoagulation after 24 hrs Review of Systems 2 Review of Systems: Yes all other systems are reviewed and are negative PMFSH Past Medical History Medical History CVA (cerebral vascular accident) PVD (peripheral vascular disease) Laceration of foot, right Chronic pain of both lower extremities Microcytic anemia Pulmonary embolism History of recurrent deep vein thrombosis (DVT) History of thrombolytic therapy Fall at home On continuous oral anticoagulation Atherosclerotic cardiovascular disease Surgical History Surgical History History of colonoscopy with polypectomy Social History Social History Household Members: Children Housing: Apartment Are you a primary district manager primary care sales to a significant other at home: No Do you presently have visiting nurse or other home services: No Alcohol intake: current Alcohol intake frequency: a few times a month Alcohol type: beer and hard liquor Patient Tobacco Use Status: Current someday Tobacco user Tobacco use type: Cigarette Cigarettes Per Day: 4 Years Smoked: 40 years e-Cigarette/Vaping Use: Never Used Second Hand Smoke Exposure: No Substance Use Type: Marijuana Advance Directives Date on File: 03/09/25 service: No Meds Allergies Allergy/AdvReac Type Severity Reaction Status Date / Time No Known Allergies Allergy Verified 05/24/25 00:53 Active Medications: Current Medications Acetaminophen (Acetaminophen 325 Mg Tablet) 650 mg PO Q6H PRN PRN Reason: Pain, Mild 1-3,fever,headache Albuterol/Ipratropium (Albuterol/Iprat 2.5/0.5mg 3 Ml Ampul.Neb) 3 ml INHALE Q4H PRN PRN Reason: Shortness of Breath/Wheezing Apixaban (Apixaban 5 Mg Tablet) 5 mg PO BID [facility] Calcium Carbonate (Calcium Carbonate 750 Mg Tab.Chew) 750 mg PO Q4H PRN PRN Reason: Heartburn Folic Acid (Folic Acid 1 Mg Tablet) 1 mg PO DAILY [facility] Hydrocortisone (Hydrocortisone 2.5 % Rectal Cr 30 Gm Tube) 1 appl SC BID PRN PRN Reason: Hemorrhoids Magnesium Hydroxide (Milk Of Magnesia 30 Ml Oral.Susp) 30 ml PO DAILY PRN PRN Reason: Constipation Melatonin (Melatonin 3 Mg Tablet) 6 mg PO BEDTIME PRN PRN Reason: Insomnia Ondansetron HCl (Ondansetron Hcl 4 Mg/2 Ml Vial) 4 mg IVPUSH Q8H PRN PRN Reason: Nausea and Vomiting Oxycodone HCl (Oxycodone Hcl Immed Release 5 Mg Tablet) 5 mg PO Q4H PRN PRN Reason: Pain, Severe (Pain Scale 7-10) Pantoprazole Sodium (Pantoprazole Sodium 40 Mg/10 Ml Vial) 40 mg IVPUSH BID@0630,1630 [facility] Polyethylene Glycol (Polyethylene Glycol 3350 17 Gm Powd.Pack) 17 gm PO DAILY PRN PRN Reason: Constipation Sodium Chloride (0.9 % Sodium Chloride Flush 3 Ml Syringe) 3 ml IVFLUSH QSHIFT [facility] Thiamine HCl (Thiamine Hcl 100 Mg Tablet) 100 mg PO DAILY [facility] Home Medications ?Medication ?Instructions ?Recorded ?Confirmed ?Last Taken ?Type acetaminophen 500 mg tablet 1,000 mg PO TID PRN modera te pain 02/20/25 05/24/25 05/22/25 21:00 History carvedilol 6.25 mg tablet 6.25 mg PO BID 02/20/2505/0905/22/25 21:00 History cyanocobalamin (vitamin B-12) 1,000 mcg PO DAILY 02/2005/24/25 05/22/25 21:00 History 1,000 mcg tablet folic acid 1 mg tablet 1 mg PO DAILY 02/20/2505/2405/22/25 21:00 History gabapentin 600 mg tablet 600 mg PO TID 02/20/2505/2405/22/25 21:00 History losartan 25 mg tablet 25 mg PO DAILY 02/20/2505/0905/22/25 21:00 History pyridoxine (vitamin B6) 50 mg 50 mg PO DAILY 02/20/25 05/24/25 05/22/25 21:00 History tablet thiamine HCl (vitamin B1) 100 mg 100 mg PO BID 05/24/25 05/22/25 21:00 History tablet trazodone 100 mg tablet 100 mg PO BEDTIME 02/20/2505/22/25 21:00 History venlafaxine 75 mg capsule,extended 75 mg PO DAILY 02/0605/24/25 05/22/25 21:00 History release 24 hr Physical Exam 2 Vital Signs: Vital Signs: Last Vital Signs Temp 98.3 F 05/24/25 06:37 Pulse 103 H 05/24/25 06:37 Resp 15 05/24/25 06:37 BP 104/65 05/24/25 06:37 Pulse Ox 96 05/24/25 04:00 O2 Del Method Room Air 05/24/25 04:00 BMI result Body Mass Index 21.6 Const: General: healthy appearing and no acute distress Nutritional Appearance: average body habitus Orientation/consciousness: patient oriented x3 Limitations: no limitations HEENT: Head: Yes normal to inspection Ears: hearing grossly normal bilaterally Mouth: Normal oral and palatal mucosa present Eyes: Sclerae: sclerae normal Pupils: Equal, round and reactive pupils present Neck: Neck: Yes normal visual inspection Chest: Chest palpation & inspection: normal inspection of the chest Resp: Effort & Inspection: normal respiratory effort Auscultation: clear to auscultation bilaterally Cardio: Palpation: normal PMI Rate: regular rate Rhythm: regular rhythm Heart sounds: S1 normal heart sound present, S2 normal heart sound present and no murmurs GI: Palpation (GI): Soft to palpation, nontender and No hepatosplenomegaly present Auscultation: normal bowel sounds Rectal Exam - Male: Yes deferred (Rectal by ED physician: Large hemorrhoid, nonthrombosed, nonbleeding,) Skin: General skin exam: no rashes or lesions noted Neuro: General: patient oriented x3, gait normal and moves all extremities Cranial nerves: Yes Equal, round and reactive pupils present Psych: Appearance: grossly normal Mental Status: mental status grossly normal Results Labs 05/25/25 05:54 05/25/25 05:54 Labs: Short CBC 05/24/25 Range/Units 01:29 WBC 7.3 (4.8-10.8) X10*3/uL Hgb 6.7 L* D (14.0-18.0) g/dl Hct 23.5 L (42.0-52.0) % Plt Count 443 H D (160-400) X10*3/uL BMP 05/24/25 01:29 Sodium 148 H Potassium 4.3 Chloride 114 H Carbon Dioxide 20 L BUN 5 L Creatinine 1.20 Calcium 9.2 Liver Function 05/24/25 Range/Units 01:29 Total Bilirubin 0.1 (0.0-1.0) mg/dL AST 34 (5-37) U/L ALT 9 (0-40) U/L Alkaline Phosphatase 82 (39-117) U/L Albumin 4.4 (3.5-5.0) g/dL Assessment and Plan (1) Acute anemia: Status: Acute (2) Alcohol use disorder: Status: Acute Plan 54 YM with PVD with recent metal don removed from R big toe, arterial bypass to lower extremity, CAD, hiatal hernia, Schatzki ring, erosive esophagitis, duodenitis, diverticulosis, colon polyps, internal hemorrhoids, PCI with stent x1, CVA with no obvious deficits, PE/ DVT currently on Eliquis but missed the last 4 days, microcytic anemia, alcohol use disorder, tobacco use, occasional marijuana use is currently homeless admitted to [facility] on 05/23/25 with intense right lower leg pain and labs showed acute on chronic anemia. Labs in ED showed hemoglobin of 6.7. Stool for occult blood was negative but patient has history of past positive occult. Pt was transfused 1 unit of PRBCs overnight with appropriate increase in CBCs. On exam ED provider did find a large hemorrhoid nonthrombosed nonbleeding Recent endoscopic evaluation revealed hiatal hernia, schatzki ring, erosive esophagitis and duodenitis, diverticulosis, colon polyps x 2, internal hemorrhoids Anemia is likely multifactorial from erosive esophagitis and duodenitis, intermittent bleeding from hemorrhoids. RECOMMENDATIONS: 1. Agree with IV PPI and CIWA protocol for ETOH withdrawal. 2. Monitor CBC daily and transfuse p.r.n.. 3. Hydrocortisone cream b.i.d. for hemorrhoids 4. Referral to ETOH rehab to discontinue ETOH abuse. 5. Surgical evaluation for band ligation/hemorrhoidectomy for large hemorrhoids. Procedures Date of Service Date of Service: 05/25/25
[2025-05-24 09:30] LABS: Vitamin B12 542 pg/mL (200-900)
--- NOTE | 2025-05-24 09:35 | PC.NURSE ---
pt is alert and oriented, skin pwd, respirations even and unlabored, ls clear, pt is reporting right leg/foot pain 03/18, no visible deformities/wounds/hx of blood clots in the leg about 7 years ago but this chronic pain has been going on for years according to the pt when was assisted to pt to get changed into hospital attire two empty fire balls nips found in the pocket of the sweatshirt, pt reports that he did not drink them in the hospital but had them prior to the arrival to the hospital
[2025-05-24] MEDS: 0.9 % Sodium Chloride Flush 3 ML SYRINGE IVFLUSH ×2 (09:43→16:59)
--- NOTE | 2025-05-24 10:02 | PHA.MEDREC ---
Pharmacy Consult ? Medication Reconciliation Pharmacy has completed the medication reconciliation. Spoke to patient at bedside, he was able to confirm his home meds.
[2025-05-24] MEDS: oxyCODONE HCl Immed Release 5 MG TABLET PO (10:57)
--- NOTE | 2025-05-24 11:15 | PC.NURSE ---
pt comes back from the bathroom actively vomiting, given zofran
[2025-05-24 14:35] LABS: Hematocrit 26.0 % (42.0-52.0); Hemoglobin 7.5 g/dl (14.0-18.0); Mean Corpuscular HGB Conc 28.8 g/dl (31.0-36.0); Mean Corpuscular Hemoglobin 24.4 pg (27.0-33.0); Mean Corpuscular Volume 84.4 fL (80.0-98.0); NRBC Abs Auto 0.000 X10*3/uL (0.0-0.012); NRBC Pct Auto 0.0 /100WBC (0.0-0.2); Platelet Count 368 X10*3/uL (160-400); Red Blood Count 3.08 X10*6/uL (4.60-5.80); White Blood Count 7.5 X10*3/uL (4.8-10.8)
[2025-05-24] MEDS: Venlafaxine HCl ER 75 MG CAP.ER.24H PO (16:54)
[2025-05-24] MEDS: PHENobarbitaL 200 MG, PHENobarbitaL 30 MG 230 MG PO (21:58)
[2025-05-25] VITALS (7 sets, daily range): BP systolic 115–139; BP diastolic 74–94; PULSE 74–95; RESP 14–18; TEMP 36.1–36.9; O2SAT 95–99
--- NOTE | 2025-05-25 00:58 | P.EN_ITS ---
Event Note Date of Service: 05/25/25 Event Note: Rosey notified this service writer that pt was drowsy, normal vital signs and arousable with good oxygenation. Plan is to hold phenobarbitol dose at this time. Pt has hx of illicit drug use and vape was found on person and will be stored safely. Urine drug screen ordered. Pupils normal in size, pt coherent. Discontinued the oxycodone and placced pt on continuous telemetry. Time Spent With Patient Time: Total time managing care of this patient today ____ minutes.
--- NOTE | 2025-05-25 01:24 | PC.NURSE ---
Upon assessing pt, a green vape was found with pt in the bed. This RN and assigned SENSOR TECHNICIAN took pt's vape and other pt's belonging including another vape, pack of cigarettes, and liter and place them all in a clear bag w/ pt's name sticker. This RN notified the unit charge nurse about pt's belongings and placed it in the black cabinet on 4th floor. Pt belongings will be given back to pt upon discharge.
--- NOTE | 2025-05-25 06:29 | PC.NURSE ---
Upon assessing pt at 00:00, pt was somnolent, arousable to name.Vital signs were taken and within limits, see worklist. Pt had RUBINA dose of Phenobarb due at this time . This RN notified ELEANOR Buck with concerns due to pt being somnolent. Per PA to hold phenobarb and place pt on continuous telemetry. This RN and assigned WEBSPHERE DEVELOPER found vape in pt's bed while assessing pt. Pt was educated about no vaping/smoking policy while in the hospital. Pt came up to unit with 2 vapes, pack of cigarettes, and liter upon admission to unit. This RN placed pt's belonging in black locker on 4th unit. ELEANOR Buck was notified about the vape and ordered a urine drug screen, awaiting urine from pt. Per PA, pt has Hx of illicit drug use. Will continue to monitor pt.
[2025-05-25 06:33] LABS: MANUAL DIFF FLAG NO
[2025-05-25 06:36] LABS: Hematocrit 24.2 % (42.0-52.0); Hemoglobin 7.1 g/dl (14.0-18.0); Imm Gran Abs Auto 0.02 X10*3/uL (0.00-0.03); Imm Gran Pct Auto 0.3 % (0.0-0.4); Lymphocytes Absolute Auto 2.2 X10*3/uL (1.2-4.9); Mean Corpuscular HGB Conc 29.3 g/dl (31.0-36.0); Mean Corpuscular Hemoglobin 23.7 pg (27.0-33.0); Mean Corpuscular Volume 80.9 fL (80.0-98.0); NRBC Abs Auto 0.000 X10*3/uL (0.0-0.012); NRBC Pct Auto 0.0 /100WBC (0.0-0.2); Platelet Count 352 X10*3/uL (160-400); Red Blood Count 2.99 X10*6/uL (4.60-5.80); White Blood Count 6.8 X10*3/uL (4.8-10.8)
[2025-05-25 06:48] LABS: Anion Gap 13 (12-20); Blood Urea Nitrogen 12 mg/dL (9-16); Calcium 9.1 mg/dL (8.4-10.2); Carbon Dioxide 23 mmol/L (22-29); Chloride 110 mmol/L (96-108); Creatinine Clr Calc Pharmacy 70.3; Estimated Glomerular Filt Rate > 60; Potassium 4.0 mmol/L (3.3-5.1); Sodium 142 mmol/L (135-145)
[2025-05-25] MEDS: Venlafaxine HCl ER 75 MG CAP.ER.24H PO (09:04)
[2025-05-25] MEDS: 0.9 % Sodium Chloride Flush 3 ML SYRINGE IVFLUSH ×3 (09:35→20:05)
--- NOTE | 2025-05-25 11:46 | HO.ADDICTCON ---
History of Present Illness Date of Service: 05/25/2025 Chief Complaint: Acute anemia Reason for Consult: AUD Sources of Information: patient interviewed and chart reviewed HPI Narrative: Patient is a 54 year old male with AUD, history of PE, and PVD, who [place] [facility] [place] reporting leg pain. While in ED, found to be acutely anemic, requiring transfusion and medically admitted. CIWA in place, and later in afternoon patient reporting increase in anxiety sx, and phenobarbital protocol. Of note, nip found in patients bed overnight. Patient seen in room 385. He is awake, alert, somewhat guarded but overall engaged in interview. Her reports that he had been abstaining from alcohol for 3 months, up until the day he presented to ED, when he drank 6-7 nips of fireball. He reports that he lives with his daughter and grandson. States that he is not engaged with any recovery supports I sit home, watch TV and drink a lot of coffee . He states that he is not concerned about his drinking as he plans to not drink when he leaves. Politely declined to discuss recovery supports or UIR. Denies any withdrawal sx, stating, I just feel tired CIWA scores have been 0. Appearing comfortable, slightly unkempt, no tremor noted. Denies nausea, loose stools Medical Evaluation Reviewed: Yes Review of Systems Constitutional: Reports as per HPI Diagnostics Vital Signs (24Hr): Vital Signs - 24 hr 05/24/25 15:27 05/24/25 20:00 05/24/25 23:42 Temperature 98.7 F 98.0 F 98.6 F Pulse Rate 101 H 99 94 Respiratory Rate 18 17 16 Blood Pressure 132/78 119/81 106/72 Pulse Oximetry 95 97 95 Oxygen Delivery Method Room Air Room Air Room Air 05/25/25 03:18 05/25/25 07:20 Temperature 98.0 F 96.9 F Pulse Rate 82 86 Respiratory Rate 16 14 Blood Pressure 115/74 123/80 Pulse Oximetry 95 96 Oxygen Delivery Method Room Air BMI result Body Mass Index 22.0 Labs 05/25/25 05:54 05/25/25 05:54 Labs: Laboratory Results - last 48 hr 05/24/25 05/24/25 05/24/25 01:29 01:30 03:35 WBC 7.3 RBC 2.94 L Hgb 6.7 L* D Hct 23.5 L MCV 79.9 L MCH 22.8 L MCHC 28.5 L RDW 19.6 H Plt Count 443 H D MPV 9.6 Immature Gran % (Auto) 0.1 Neut % (Auto) 36.4 L Lymph % (Auto) 45.9 H [place] % (Auto) 10.1 Eos % (Auto) 5.9 H Baso % (Auto) 1.6 Lymph # (Auto) 3.4 [place] # (Auto) 0.7 Eos # (Auto) 0.4 Baso # (Auto) 0.1 Abs Immat Gran (auto) 0.01 Absolute Neuts (auto) 2.7 Absolute Nucleated RBC 0.000 Nucleated RBC % (auto) 0.0 Absolute Retic 0.041 Percent Retic 1.4 Immature Retic Fraction 39.2 H Retic Hgb Equivalent 17.8 L PT 11.8 D INR 1.0 APTT 30.4 D-Dimer High Sensitivty 306 Sodium 148 H Potassium 4.3 Chloride 114 H Carbon Dioxide 20 L Anion Gap 18 BUN 5 L Creatinine 1.20 Estim Creat Clear Calc 62.2 Estimated GFR > 60 Random Glucose 93 Calcium 9.2 Total Bilirubin 0.1 AST 34 ALT 9 Alkaline Phosphatase 82 Troponin I High Sens 2.7 Total Protein 7.6 Albumin 4.4 Lipase 53 Vitamin B12 Stool Occult Blood NEGATIVE Urine Opiates Screen Ur Buprenorphine Scrn Ur Oxycodone Screen Urine Methadone Screen Urine Fentanyl Screen Ur Barbiturates Screen Ur Phencyclidine Scrn Ur Amphetamines Screen U Benzodiazepines Scrn Urine Cocaine Screen U Marijuana (THC) Screen Ethyl Alcohol 245 COVID-19 (ABRAHAM) Negative COVID-19 Clin Com See Note Influenza Type A (NANO) Negative Influenza Type B (NANO) Negative Influenza A & B Note See Note Blood Type O Positive Antibody Screen NEGATIVE Crossmatch See Detail 05/24/25 05/24/25 05/24/25 05:12 08:31 14:20 WBC 7.5 RBC 3.08 L Hgb 7.5 L Hct 26.0 L MCV 84.4 MCH 24.4 L MCHC 28.8 L RDW 19.8 H Plt Count 368 MPV 10.1 Immature Gran % (Auto) Neut % (Auto) Lymph % (Auto) [place] % (Auto) Eos % (Auto) Baso % (Auto) Lymph # (Auto) [place] # (Auto) Eos # (Auto) Baso # (Auto) Abs Immat Gran (auto) Absolute Neuts (auto) Absolute Nucleated RBC 0.000 Nucleated RBC % (auto) 0.0 Absolute Retic Percent Retic Immature Retic Fraction Retic Hgb Equivalent PT INR APTT D-Dimer High Sensitivty Sodium Potassium Chloride Carbon Dioxide Anion Gap BUN Creatinine Estim Creat Clear Calc Estimated GFR Random Glucose Calcium Total Bilirubin AST ALT Alkaline Phosphatase Troponin I High Sens Total Protein Albumin Lipase Vitamin B12 542 Stool Occult Blood Urine Opiates Screen Not Detected Ur Buprenorphine Scrn Not Detected Ur Oxycodone Screen Positive H Urine Methadone Screen Not Detected Urine Fentanyl Screen Not Detected Ur Barbiturates Screen Not Detected Ur Phencyclidine Scrn Not Detected Ur Amphetamines Screen Not Detected U Benzodiazepines Scrn Not Detected Urine Cocaine Screen Not Detected U Marijuana (THC) Screen POSITIVE H Ethyl Alcohol COVID-19 (ABRAHAM) COVID-19 Clin Com Influenza Type A (NANO) Influenza Type B (NANO) Influenza A & B Note Blood Type Antibody Screen Crossmatch 05/25/25 05:54 WBC 6.8 RBC 2.99 L Hgb 7.1 L Hct 24.2 L MCV 80.9 MCH 23.7 L MCHC 29.3 L RDW 19.9 H Plt Count 352 MPV 9.6 Immature Gran % (Auto) 0.3 Neut % (Auto) 43.7 L Lymph % (Auto) 32.7 [place] % (Auto) 15.1 H Eos % (Auto) 6.7 H Baso % (Auto) 1.5 Lymph # (Auto) 2.2 [place] # (Auto) 1.0 Eos # (Auto) 0.5 H Baso # (Auto) 0.1 Abs Immat Gran (auto) 0.02 Absolute Neuts (auto) 3.0 Absolute Nucleated RBC 0.000 Nucleated RBC % (auto) 0.0 Absolute Retic Percent Retic Immature Retic Fraction Retic Hgb Equivalent PT INR APTT D-Dimer High Sensitivty Sodium 142 Potassium 4.0 Chloride 110 H Carbon Dioxide 23 Anion Gap 13 BUN 12 Creatinine 1.08 Estim Creat Clear Calc 70.3 Estimated GFR > 60 Random Glucose 88 Calcium 9.1 Total Bilirubin AST ALT Alkaline Phosphatase Troponin I High Sens Total Protein Albumin Lipase Vitamin B12 Stool Occult Blood Urine Opiates Screen Ur Buprenorphine Scrn Ur Oxycodone Screen Urine Methadone Screen Urine Fentanyl Screen Ur Barbiturates Screen Ur Phencyclidine Scrn Ur Amphetamines Screen U Benzodiazepines Scrn Urine Cocaine Screen U Marijuana (THC) Screen Ethyl Alcohol COVID-19 (ABRAHAM) COVID-19 Clin Com Influenza Type A (NANO) Influenza Type B (NANO) Influenza A & B Note Blood Type Antibody Screen Crossmatch Imaging Radiology Impressions: ITS Impressions Venous Duplex 05/24/25 14:59 IMPRESSION: No evidence of deep venous thrombosis involving the bilateral lower extremities. Electronically signed by: Pankaj Davison MD 05/24/2025 03:27 PM EDT RP Mental Status Exam Mental Status Exam Patient Appearance: Unkempt Level of Consciousness: Awake, Appropriate and Alert Patient Behavior: Appropriate and Guarded Affect Description: Blunted Speech Pattern: Clear Thought Process: Intact Thought Content: positive for Upham Judgement: Fair Medications Medications Current Medications Acetaminophen (Acetaminophen 325 Mg Tablet) 650 mg PO Q6H PRN PRN Reason: Pain, Mild 1-3,fever,headache Albuterol/Ipratropium (Albuterol/Iprat 2.5/0.5mg 3 Ml Ampul.Neb) 3 ml INHALE Q4H PRN PRN Reason: Shortness of Breath/Wheezing Apixaban (Apixaban 5 Mg Tablet) 5 mg PO BID [facility] Last Admin: 05/25/25 09:04 Dose: 5 mg Calcium Carbonate (Calcium Carbonate 750 Mg Tab.Chew) 750 mg PO Q4H PRN PRN Reason: Heartburn Cyanocobalamin (Cyanocobalamin (Vitamin B-12) 1,000 Mcg Tablet) 1,000 mcg PO DAILY [facility] Last Admin: 05/25/25 09:03 Dose: 1,000 mcg Folic Acid (Folic Acid 1 Mg Tablet) 1 mg PO DAILY [facility] Last Admin: 05/25/25 09:03 Dose: 1 mg Gabapentin (Gabapentin 600 Mg Tablet) 600 mg PO TID [facility] Last Admin: 05/25/25 09:04 Dose: 600 mg Hydrocortisone (Hydrocortisone 2.5 % Rectal Cr 30 Gm Tube) 1 appl [place] BID PRN PRN Reason: Hemorrhoids Magnesium Hydroxide (Milk Of Magnesia 30 Ml Oral.Susp) 30 ml PO DAILY PRN PRN Reason: Constipation Magnesium Oxide (Magnesium Oxide 400 Mg Tablet) 400 mg PO DAILY [facility] Last Admin: 05/25/25 09:03 Dose: 400 mg Melatonin (Melatonin 3 Mg Tablet) 6 mg PO BEDTIME PRN PRN Reason: Insomnia Omeprazole (Omeprazole 40 Mg Capsule.Dr) 40 mg PO BID@0630,1630 [facility] Last Admin: 05/25/25 06:08 Dose: Not Given Ondansetron HCl (Ondansetron Hcl 4 Mg/2 Ml Vial) 4 mg IVPUSH Q8H PRN PRN Reason: Nausea and Vomiting Last Admin: 05/24/25 11:13 Dose: 4 mg Pharmacy Consult (Consult Rx Etoh Phenob Po Only) 1 each MISCELLANE ONCE PRN; Protocol PRN Reason: Consult order Phenobarbital (Phenobarbital 15 Mg Tablet) 15 mg PO Q4H PRN PRN Reason: Breakthrough alcohol withdrawa Phenobarbital (Phenobarbital 15 Mg Tablet) 45 mg PO BID [facility] Stop: 05/26/25 21:01 Last Admin: 05/25/25 09:03 Dose: 45 mg Phenobarbital (Phenobarbital 15 Mg Tablet) 15 mg PO BID [facility] Stop: 05/28/25 21:01 Phenobarbital (Phenobarbital 15 Mg Tablet) 15 mg PO DAILY [facility] Stop: 05/30/25 09:01 Polyethylene Glycol (Polyethylene Glycol 3350 17 Gm Powd.Pack) 17 gm PO DAILY PRN PRN Reason: Constipation Pyridoxine HCl (Pyridoxine Hcl (Vitamin B6) 50 Mg Tablet) 50 mg PO DAILY [facility] Last Admin: 05/25/25 09:03 Dose: 50 mg Sodium Chloride (0.9 % Sodium Chloride Flush 3 Ml Syringe) 3 ml IVFLUSH QSHIFT [facility] Last Admin: 05/25/25 09:35 Dose: 3 ml Thiamine HCl (Thiamine Hcl 100 Mg Tablet) 100 mg PO DAILY [facility] Last Admin: 05/25/25 09:03 Dose: 100 mg Trazodone HCl (Trazodone Hcl 100 Mg Tablet) 100 mg PO BEDTIME [facility] Last Admin: 05/24/25 20:15 Dose: 100 mg Venlafaxine HCl (Venlafaxine Hcl Er 75 Mg Cap.Er.24h) 75 mg PO DAILY [facility] Last Admin: 05/25/25 09:04 Dose: 75 mg Allergies Allergies Allergy/AdvReac Type Severity Reaction Status Date / Time No Known Allergies Allergy Verified 05/24/25 00:53 Assessment & Plan Assessment & Plan (1) Alcohol use disorder: Status: Acute Code(s): F10.90 - Alcohol use, unspecified, uncomplicated Assessment and Plan: mild withdrawal, managed with phenobarbital encouraged to continue thiamine and folic acid at home appears to be minimizing alcohol use, and overall impact on health--however declining to discuss further-declines URI or AUD tx follow up Encouraged to request ACS visit should he change his mind. Total time managing care of this patient today __30__ minutes. [facility] Past Medical History Medical History CVA (cerebral vascular accident) PVD (peripheral vascular disease) Laceration of foot, right Chronic pain of both lower extremities Microcytic anemia Pulmonary embolism History of recurrent deep vein thrombosis (DVT) History of thrombolytic therapy Fall at home On continuous oral anticoagulation Atherosclerotic cardiovascular disease Surgical History Surgical History History of colonoscopy with polypectomy Social History Social History Household Members: Children Housing: Apartment Are you a primary progressive care unit registered nurse to a significant other at home: No Do you presently have visiting nurse or other home services: No Alcohol intake: current Alcohol intake frequency: a few times a month Alcohol type: beer and hard liquor Patient Tobacco Use Status: Current someday Tobacco user Tobacco use type: Cigarette Cigarettes Per Day: 4 Years Smoked: 40 years e-Cigarette/Vaping Use: Never Used Second Hand Smoke Exposure: No Substance Use Type: Marijuana Advance Directives Date on File: 03/09/25 service: No
--- NOTE | 2025-05-25 14:59 | HO.PM.IMPN ---
Subjective Subjective Date of Service: 05/25/25 Interval History: Overnight events noted. Patient was found to have 2 empty bottles of fireball and a vape pen - these were confiscated. Prolonging searched - no other items found. He reports feeling better today compared to yesterday. Received 1 unit PRBCs yesterday, hemoglobin 7.1. Patient also received multiple L of fluids yesterday - likely cause for precipitous drop in hemoglobin Transfusing another unit of PRBC. Reports his leg pain has improved. Review of Systems Review of Systems: Yes all other systems are reviewed and are negative Physical Exam Exam: Exam: General: A&O x3, oriented to time place person and situation, comfortable, no pain Cardiac: S1, S2 auscultated with no S3/4, no MRG. Well perfused. Respiratory: Normal breath sounds auscultated throughout all lung zones, without wheezing, rales. Normal rate. GI/ : No abdominal pain on palpation, no masses or distentions. MSK: Normal ambulation without pain at bony prominences or musculature Neurological: Normal neurological examination on overview, without obvious CN II-XII abnormalities. Vital Signs: Vital Signs: Last Vital Signs Temp 98.1 F 05/25/25 13:44 Pulse 85 05/25/25 13:44 Resp 18 05/25/25 13:44 BP 131/87 05/25/25 13:44 Pulse Ox 97 05/25/25 12:00 O2 Del Method Room Air 05/25/25 12:00 BMI result Body Mass Index 22.0 Objective Data Active Medications Acetaminophen (Acetaminophen 325 Mg Tablet) 650 mg PO Q6H PRN PRN Reason: Pain, Mild 1-3,fever,headache Albuterol/Ipratropium (Albuterol/Iprat 2.5/0.5mg 3 Ml Ampul.Neb) 3 ml INHALE Q4H PRN PRN Reason: Shortness of Breath/Wheezing Apixaban (Apixaban 5 Mg Tablet) 5 mg PO BID [facility] Last Admin: 05/25/25 09:04 Dose: 5 mg Documented By: NOLAN Calcium Carbonate (Calcium Carbonate 750 Mg Tab.Chew) 750 mg PO Q4H PRN PRN Reason: Heartburn Cyanocobalamin (Cyanocobalamin (Vitamin B-12) 1,000 Mcg Tablet) 1,000 mcg PO DAILY [facility] Last Admin: 05/25/25 09:03 Dose: 1,000 mcg Documented By: NOLAN Folic Acid (Folic Acid 1 Mg Tablet) 1 mg PO DAILY [facility] Last Admin: 05/25/25 09:03 Dose: 1 mg Documented By: NOLAN Gabapentin (Gabapentin 600 Mg Tablet) 600 mg PO TID [facility] Last Admin: 05/25/25 09:04 Dose: 600 mg Documented By: NOLAN Hydrocortisone (Hydrocortisone 2.5 % Rectal Cr 30 Gm Tube) 1 appl [place] BID PRN PRN Reason: Hemorrhoids Magnesium Hydroxide (Milk Of Magnesia 30 Ml Oral.Susp) 30 ml PO DAILY PRN PRN Reason: Constipation Magnesium Oxide (Magnesium Oxide 400 Mg Tablet) 400 mg PO DAILY [facility] Last Admin: 05/25/25 09:03 Dose: 400 mg Documented By: NOLAN Melatonin (Melatonin 3 Mg Tablet) 6 mg PO BEDTIME PRN PRN Reason: Insomnia Omeprazole (Omeprazole 40 Mg Capsule.Dr) 40 mg PO BID@0630,1630 [facility] Last Admin: 05/25/25 06:08 Dose: Not Given Documented By: JEANCARLOS Non-Admin Reason: Patient Asleep Ondansetron HCl (Ondansetron Hcl 4 Mg/2 Ml Vial) 4 mg IVPUSH Q8H PRN PRN Reason: Nausea and Vomiting Last Admin: 05/24/25 11:13 Dose: 4 mg Documented By: LULA Pharmacy Consult (Consult Rx Etoh Phenob Po Only) 1 each MISCELLANE ONCE PRN; Protocol PRN Reason: Consult order Phenobarbital (Phenobarbital 15 Mg Tablet) 15 mg PO Q4H PRN PRN Reason: Breakthrough alcohol withdrawa Phenobarbital (Phenobarbital 15 Mg Tablet) 45 mg PO BID [facility] Stop: 05/26/25 21:01 Last Admin: 05/25/25 09:03 Dose: 45 mg Documented By: NOLAN Phenobarbital (Phenobarbital 15 Mg Tablet) 15 mg PO BID [facility] Stop: 05/28/25 21:01 Phenobarbital (Phenobarbital 15 Mg Tablet) 15 mg PO DAILY [facility] Stop: 05/30/25 09:01 Polyethylene Glycol (Polyethylene Glycol 3350 17 Gm Powd.Pack) 17 gm PO DAILY PRN PRN Reason: Constipation Pyridoxine HCl (Pyridoxine Hcl (Vitamin B6) 50 Mg Tablet) 50 mg PO DAILY [facility] Last Admin: 05/25/25 09:03 Dose: 50 mg Documented By: NOLAN Sodium Chloride (0.9 % Sodium Chloride Flush 3 Ml Syringe) 3 ml IVFLUSH QSHIFT [facility] Last Admin: 05/25/25 09:35 Dose: 3 ml Documented By: NOLAN Thiamine HCl (Thiamine Hcl 100 Mg Tablet) 100 mg PO DAILY [facility] Last Admin: 05/25/25 09:03 Dose: 100 mg Documented By: NOLAN Trazodone HCl (Trazodone Hcl 100 Mg Tablet) 100 mg PO BEDTIME [facility] Last Admin: 05/24/25 20:15 Dose: 100 mg Documented By: NELSON Venlafaxine HCl (Venlafaxine Hcl Er 75 Mg Cap.Er.24h) 75 mg PO DAILY [facility] Last Admin: 05/25/25 09:04 Dose: 75 mg Documented By: NOLAN Labs 05/25/25 05:54 05/25/25 05:54 Labs: Laboratory Results - last 24 hr 05/24/25 05/25/25 03:35 05:54 MCV 80.9 MCH 23.7 L MCHC 29.3 L RDW 19.9 H Plt Count 352 MPV 9.6 Immature Gran % (Auto) 0.3 Neut % (Auto) 43.7 L Lymph % (Auto) 32.7 [place] % (Auto) 15.1 H Eos % (Auto) 6.7 H Baso % (Auto) 1.5 Lymph # (Auto) 2.2 [place] # (Auto) 1.0 Eos # (Auto) 0.5 H Baso # (Auto) 0.1 Abs Immat Gran (auto) 0.02 Absolute Neuts (auto) 3.0 Absolute Nucleated RBC 0.000 Nucleated RBC % (auto) 0.0 Anion Gap 13 Estim Creat Clear Calc 70.3 Estimated GFR > 60 Random Glucose 88 Calcium 9.1 Blood Type O Positive Antibody Screen NEGATIVE Crossmatch See Detail Assessment and Plan (1) Alcohol use disorder: Status: Acute (2) Atherosclerotic cardiovascular disease: Status: Acute (3) Chest pain: Status: Acute (4) PVD (peripheral vascular disease): Status: Acute (5) History of recurrent deep vein thrombosis (DVT): Status: Acute (6) Pulmonary embolism: Status: Acute (7) Microcytic anemia: Status: Acute (8) Acute anemia: Status: Acute (9) Chronic pain of both lower extremities: Status: Acute (10) Cough: Status: Acute Plan 54-year-old male, with a history of homelessness, arterial bibasilar lower extremity, CAD s/p PCI J LUIS x1, DVT/PE noncompliant with anticoagulation (apixaban), erosive esophagitis, Schatzki's ring, ETOH abuse, history of duodenitis/diverticulosis, chronic lower extremity peripheral neuropathy chronic pain, presents with acute worsening of right lower extremity pain, admitted with incidentally identified acute on chronic anemia requiring x2 PRBC transfusion, and issues with AUD. Acute on chronic anemia Erosive esophagitis History of duodenitis and diverticulosis History of Schatzki's ring Iron panel, B12, reticulocyte and erythropoietin pending Protonix IV b.i.d. transitioned to p.o. Gastroenterology was consulted-no role for inpatient EGD/colonoscopy-planned outpatient follow-up NPO Hemodynamics have remained stable Monitor CBC Patient transfuse 1 unit of PRBCs 05/24 Hemoglobin returning at 7.1 today, transfusing another unit of PRBCs (likely dilutional in setting of IVF) Alcohol use disorder Peripheral neuropathy Last drink 05/23/2025, 6 shots of fireball CIWA ordered LFTs WNL No history of seizures reported with withdrawal Thiamine and folic acid Addictions consulted Gabapentin was restarted for peripheral neuropathy History of DVT/PE On chronic kdyijazaqmhrjmc-gihmwgfx-blmamcadzumm Patient has been off his Eliquis for the last 4 days, per patient prescription renewal pending Eliquis resumed in the ED noting patient's significant history with blood clots, noting current acute anemia issues Doppler studies of bilateral lower extremities ordered; -ve D-dimer pending, low likelihood of PE noting patient's stable respiratory status PLAN - continue apixaban 5 mg b.i.d. p.o. PVD Patient follows with vascular as an outpatient Consider inpatient consultation for any acute findings that may arise Has chronic peripheral vascular disease issues for years Next outpatient visit is within the next [address] scan GERD Protonix IV b.i.d. Hypertension Continue Coreg and losartan Renal function stable Heart rate within normal limit QUALITY [employer] - VTE: Apixaban restarted 5 mg b.i.d. - CODE STATUS: Full code - DIET: Regular - DISPOSITION: Pending PT evaluation - possible STR placement Total time managing care of this patient today: 35 minutes. Quality Stroke Does the patient have a stroke diagnosis?: No Reason for No Anti-thrombotic by Day Two: N/A - Med Ordered VTE Prior VTE?: Yes VTE Risk Level:: Medical - moderate - high VTE Device Contraindication: N/A - Device Ordered VTE Drug Contraindication: Treatment Not Indicated
[2025-05-25] MEDS: oxyCODONE HCl Immed Release 5 MG TABLET PO (20:04)
[2025-05-26] VITALS: BP 105/67; PULSE 72; RESP 18; TEMP 36.2; O2SAT 96
[2025-05-26 01:34] LABS: Cannabinoid Screen Urine POSITIVE (Not Detect)
[2025-05-26 04:00] VITALS: BP 122/74; PULSE 77; RESP 20; TEMP 36.4; O2SAT 98
[2025-05-26 07:28] VITALS: BP 114/77; PULSE 92; RESP 16; TEMP 36.5; O2SAT 99
[2025-05-26] MEDS: Venlafaxine HCl ER 75 MG CAP.ER.24H PO (08:27)
[2025-05-26] MEDS: 0.9 % Sodium Chloride Flush 3 ML SYRINGE IVFLUSH (08:31)
[2025-05-26 08:50] LABS: MANUAL DIFF FLAG NO
[2025-05-26 08:51] LABS: Hematocrit 26.6 % (42.0-52.0); Hemoglobin 8.1 g/dl (14.0-18.0); Imm Gran Abs Auto 0.01 X10*3/uL (0.00-0.03); Imm Gran Pct Auto 0.2 % (0.0-0.4); Lymphocytes Absolute Auto 2.3 X10*3/uL (1.2-4.9); Mean Corpuscular HGB Conc 30.5 g/dl (31.0-36.0); Mean Corpuscular Hemoglobin 24.7 pg (27.0-33.0); Mean Corpuscular Volume 81.1 fL (80.0-98.0); NRBC Abs Auto 0.000 X10*3/uL (0.0-0.012); NRBC Pct Auto 0.0 /100WBC (0.0-0.2); Platelet Count 299 X10*3/uL (160-400); Red Blood Count 3.28 X10*6/uL (4.60-5.80); White Blood Count 5.9 X10*3/uL (4.8-10.8)
[2025-05-26 09:04] LABS: Anion Gap 14 (12-20); Blood Urea Nitrogen 11 mg/dL (9-16); Calcium 8.7 mg/dL (8.4-10.2); Carbon Dioxide 22 mmol/L (22-29); Chloride 107 mmol/L (96-108); Creatinine Clr Calc Pharmacy 78.3; Estimated Glomerular Filt Rate > 60; Potassium 4.1 mmol/L (3.3-5.1); Sodium 139 mmol/L (135-145)
--- NOTE | 2025-05-26 10:56 | P.DS_ITS ---
DS: Providers Provider Date of Service: 05/26/25 Date of admission: 05/24/25 05:12 Date of discharge: 05/26/25 Primary care physician: Amarilis Javier MD Consults: 05/24/25 05:41 Consult to Gastroenterology Routine Consulting Provider: Sadie Perez Reason for consultation: acute anemia, r/o GI source Has provider been notified: No 05/24/25 06:03 Addiction Medicine Provider Routine Consulting Provider: Addiction Covering Reason for consultation: Alcohol use disorder DS: Diagnosis Discharge Diagnosis (1) Alcohol use disorder: Status: Acute DS: Summary Hospital Course Hospital Course: Presentation The patient is a 54-year-old male with a complex medical history including peripheral vascular disease (PVD) with recent right big toe metal don removal, arterial bypass to lower extremity, coronary artery disease (CAD) s/p PCI with J LUIS, hiatal hernia, Schatzki ring, erosive esophagitis, duodenitis, diverticulosis, colon polyps, internal hemorrhoids, history of CVA (no residual deficits), recurrent DVT/PE (on apixaban, noncompliant for 4 days prior to admission), microcytic anemia, alcohol use disorder, tobacco use, and daily marijuana use. He is currently homeless. He presented to the ED after calling 911 for intense right lower leg pain, which he described as chronic but worsening. He reported missing several doses of apixaban due to prescription issues and admitted to consuming 6 shots of fireball whiskey earlier that day due to depression and chronic pain. He denied chest pain, shortness of breath, GI bleeding, or other acute symptoms. ED Course * On arrival, the patient was hemodynamically stable. * Initial labs revealed acute on chronic microcytic anemia (Hgb 6.7 g/dL). * Stool for occult blood was negative; a large, non-thrombosed, non-bleeding hemorrhoid was noted on exam. * Chest X-ray and COVID-19/influenza testing were negative. * CT abdomen/pelvis showed no acute findings. * The patient received 1 unit of PRBCs in the ED, with subsequent improvement in hemoglobin. * Apixaban was resumed due to his significant thromboembolic history. * Doppler studies of the lower extremities were negative for acute DVT. * CIWA protocol was initiated for alcohol withdrawal risk; thiamine and folic acid were started. * GI was consulted; no indication for inpatient endoscopy. * The patient remained hemodynamically stable throughout admission, with no further evidence of bleeding. * No electrolyte abnormalities at discharge. * Physical therapy evaluation completed; STR placement pending. Problem List * Acute on chronic microcytic anemia * The patient presented with significant anemia (Hgb 6.7 g/dL), likely multifactorial in etiology. Contributing factors include chronic gastrointestinal blood loss from erosive esophagitis, diverticulosis, and hemorrhoids, as well as possible dilutional effects from IV fluids. He required transfusion of 2 units of PRBCs during admission, with hemoglobin improving to >8 g/dL prior to discharge. No evidence of active bleeding was found during his stay, and he remained hemodynamically stable. Iron studies, B12, reticulocyte count, and erythropoietin levels were obtained; results pending at discharge. * Hemoglobin improved to >8 g/dL prior to discharge. * Alcohol use disorder * The patient has a longstanding history of alcohol use disorder, with a recent relapse (last drink 05/23/2025, 6 shots of fireball). He was managed with CIWA protocol for withdrawal risk and received thiamine and folic acid supplementation. Liver function tests remained within normal limits. He was evaluated by the addiction medicine team and did not experience withdrawal seizures or severe symptoms during admission. * History of DVT/PE * He has a history of recurrent DVT and PE, previously managed with apixaban. He was noncompliant with anticoagulation for 4 days prior to admission due to prescription issues. Apixaban was resumed in the ED. Doppler studies of the lower extremities were negative for acute DVT, and there was low clinical suspicion for PE given his stable respiratory status. He was counseled on the importance of medication adherence. * Peripheral vascular disease (PVD) * The patient has chronic PVD with a history of arterial bypass and recent hardware removal from the right big toe. He continues to experience chronic lower extremity pain and intermittent claudication. Vascular surgery follow-up is established, and he has an upcoming outpatient CT scan. No acute vascular compromise was identified during this admission. * Chronic lower extremity pain and peripheral neuropathy * He experiences chronic pain in both lower extremities, attributed to PVD and peripheral neuropathy. Pain was managed with gabapentin during admission, with some improvement reported. He remains ambulatory and uses a cane/walker for mobility. * Coronary artery disease (CAD), s/p PCI with J LUIS * The patient has a history of CAD with prior PCI and drug-eluting stent placement. He did not report chest pain or anginal symptoms during this admission. Cardiac exam and ECG were unremarkable. * Hypertension * His hypertension was managed with carvedilol and losartan, with stable blood pressure and renal function throughout his hospital stay. * GERD, erosive esophagitis, Schatzki?s ring * He has a history of significant upper GI pathology, including erosive esophagitis and Schatzki?s ring, which likely contribute to his chronic anemia. He was maintained on proton pump inhibitor therapy (Protonix IV transitioned to PO). GI was consulted, and outpatient endoscopic follow-up is planned. * History of duodenitis, diverticulosis, colon polyps, and internal hemorrhoids * These chronic GI conditions further increase his risk for GI blood loss and anemia. No evidence of active GI bleeding was found during this admission. A large, non-thrombosed, non-bleeding hemorrhoid was noted on exam. * History of CVA (no residual deficits) * The patient has a remote history of cerebrovascular accident without cu rrent neurological deficits. He remained neurologically intact throughout admission. * Tobacco and marijuana use * He is a former tobacco user with a 40-year history and continues to use marijuana daily. He was counseled on the risks associated with ongoing substance use. Status at Discharge Cognitive/behavioral status at discharge: A&O x4 Functional status at discharge: uses cane/walker Overall status at discharge: patient is back to baseline Time Attestation Total time managing care of this patient today: 45 mintues. Discharge Coordination Time (in mins): 30 Quality: Safe Use of Opioids Does Pt have an Active Cancer Diagnosis on the Problem List?: No Quality: Stroke Does the patient have a stroke diagnosis?: No Physical Exam Exam: Exam: * General:?Alert and oriented ?3, in no acute distress, able to provide reliable history. * Neurological:?Cranial nerves II?XII grossly intact. No focal deficits. Strength 5/5 in upper and lower extremities, consistent with baseline. No evidence of acute CVA. * Eyes:?Pupils equal, round, reactive to light and accommodation. Extraocular movements intact. Sclerae non-icteric. Conjunctivae slightly pale. * ENT:?Oropharynx moist, uvula midline, no lesions. Hearing intact. Nares patent, no epistaxis. * Cardiac:?Regular rate and rhythm. S1, S2 present, no murmurs, rubs, or gallops. No jugular venous distension. No peripheral edema. * Pulmonary:?Lungs diminished bilaterally but clear to auscultation. No wheezes, rales, or rhonchi. No increased work of breathing. * Abdomen:?Bowel sounds active in all quadrants. No tenderness, guarding, or rebound. No palpable masses. Old surgical scar beneath umbilicus. * Extremities:?No edema. Pedal and dorsalis pedis pulses +2 bilaterally. No cyanosis or open wounds. Capillary refill within normal limits. * Musculoskeletal:?Ambulates with cane/walker. No joint swelling or deformity. No bony tenderness. * Skin:?No new rashes or lesions. Large, non-thrombosed, non-bleeding hemorrhoid noted on exam. * Psychiatric:?Mood stable. Judgment and insight appropriate. Vital Signs: Vital Signs: Last Vital Signs Temp 97.7 F 05/26/25 07:28 Pulse 92 05/26/25 07:28 Resp 16 05/26/25 07:28 BP 114/77 05/26/25 07:28 Pulse Ox 99 05/26/25 07:28 O2 Del Method Room Air 05/26/25 07:28 BMI result Body Mass Index 22.0 DS: Data Data Completed and Pending Completed studies during hospitalization [Text1]: Procedures Control Bleeding in Gastrointestinal Tract, Via Natural or Artificial Opening Endoscopic (02/20/25) Detoxification Services for Substance Abuse Treatment (02/20/25) Excision of Descending Colon, Via Natural or Artificial Opening Endoscopic, Diagnostic (02/20/25) Excision of Sigmoid Colon, Via Natural or Artificial Opening Endoscopic, Diagnostic (02/20/25) Excision of Stomach, Via Natural or Artificial Opening Endoscopic, Diagnostic (02/20/25) Repair Right Foot Skin, External Approach (03/09/25) Transfusion of Nonautologous Red Blood Cells into Peripheral Vein, Percutaneous Approach (02/20/25) Labs on day of discharge: Laboratory Results - last 24 hr 05/24/25 05/24/25 05/25/25 03:35 08:31 22:14 WBC RBC Hgb Hct MCV MCH MCHC RDW Plt Count MPV Immature Gran % (Auto) Neut % (Auto) Lymph % (Auto) [place] % (Auto) Eos % (Auto) Baso % (Auto) Lymph # (Auto) [place] # (Auto) Eos # (Auto) Baso # (Auto) Abs Immat Gran (auto) Absolute Neuts (auto) Absolute Nucleated RBC Nucleated RBC % (auto) Sodium Potassium Chloride Carbon Dioxide Anion Gap BUN Creatinine Estim Creat Clear Calc Estimated GFR Random Glucose Calcium Erythropoietin 967.0 H Urine Opiates Screen Not Detected Ur Buprenorphine Scrn Not Detected Ur Oxycodone Screen Positive H Urine Methadone Screen Not Detected Urine Fentanyl Screen Not Detected Ur Barbiturates Screen POSITIVE H Ur Phencyclidine Scrn Not Detected Ur Amphetamines Screen Not Detected U Benzodiazepines Scrn Not Detected Urine Cocaine Screen Not Detected U Marijuana (THC) Screen POSITIVE H Blood Type O Positive Antibody Screen NEGATIVE Crossmatch See Detail 05/26/25 08:36 WBC 5.9 RBC 3.28 L Hgb 8.1 L Hct 26.6 L MCV 81.1 MCH 24.7 L MCHC 30.5 L RDW 19.6 H Plt Count 299 MPV 9.3 L Immature Gran % (Auto) 0.2 Neut % (Auto) 41.7 L Lymph % (Auto) 38.6 [place] % (Auto) 11.3 H Eos % (Auto) 6.9 H Baso % (Auto) 1.3 Lymph # (Auto) 2.3 [place] # (Auto) 0.7 Eos # (Auto) 0.4 Baso # (Auto) 0.1 Abs Immat Gran (auto) 0.01 Absolute Neuts (auto) 2.5 Absolute Nucleated RBC 0.000 Nucleated RBC % (auto) 0.0 Sodium 139 Potassium 4.1 Chloride 107 Carbon Dioxide 22 Anion Gap 14 BUN 11 Creatinine 0.97 Estim Creat Clear Calc 78.3 Estimated GFR > 60 Random Glucose 95 Calcium 8.7 Erythropoietin Urine Opiates Screen Ur Buprenorphine Scrn Ur Oxycodone Screen Urine Methadone Screen Urine Fentanyl Screen Ur Barbiturates Screen Ur Phencyclidine Scrn Ur Amphetamines Screen U Benzodiazepines Scrn Urine Cocaine Screen U Marijuana (THC) Screen Blood Type Antibody Screen Crossmatch Discharge Plan Discharge Anticipated Discharge Date/Time: 05/26/25 11:03 Patient Disposition: Home Health Service Discharge Diagnosis: Acute on chronic microcytic anemia secondary to chronic gastrointestinal blood loss (erosive esophagitis, diverticulosis, hemorrhoids) in the setting of alcohol use disorder, with history of recurrent DVT/PE, peripheral vascular disease, and multiple chronic comorbidities. Referrals: Amarilis Lazaro MD [Primary Care Provider, Medical] - 1 Week Discharge Medications: New Eliquis 5 mg Tablet 5 mg PO BID 30 Days Qty: 60 0RF Continued magnesium oxide 400 mg (241.3 mg magnesium) tablet 400 mg PO DAILY Qty: 90 0RF Rx Instructions: Take on tablet daily. Preparation H 0.25-14-74.9 % ointment 1 appl GA BID PRN (Reason: hemorrhoids) Qty: 28 0RF Rx Instructions: Apply to hemorrhoids twice a day as needed carvedilol 6.25 mg tablet 6.25 mg PO BID venlafaxine 75 mg capsule,extended release 24hr 75 mg PO DAILY gabapentin 600 mg tablet 600 mg PO TID trazodone 100 mg tablet 100 mg PO BEDTIME losartan 25 mg tablet 25 mg PO DAILY thiamine HCl (vitamin B1) 100 mg tablet 100 mg PO BID folic acid 1 mg tablet 1 mg PO DAILY cyanocobalamin (vitamin B-12) 1,000 mcg tablet 1,000 mcg PO DAILY acetaminophen 500 mg tablet 1,000 mg PO TID PRN (Reason: moderate pain) pyridoxine (vitamin B6) 50 mg tablet 50 mg PO DAILY omeprazole 40 mg Capsule,Delayed Release(Dr/Ec) 40 mg PO BID@0630,1630 Qty: 0 0RF Discontinued cephalexin 500 mg capsule 500 mg PO QID Qty: 14 0RF Rx Instructions: Take one capsule four times a day for the next 3 days. Complete full course of antibiotics, which should end on 03/15. Eliquis 5 mg tablet 5 mg PO BID Discharge Orders: Discharge Order (Routine); Ordered 05/26/25 Ordered By: Cedric Caceres Diet: Advance to usual diet Activity on Discharge: As tolerated Stand Alone Forms: Patient Portal Discharge page Print Language: French Care Plan Goals: * Optimize management of chronic anemia: Ensure close outpatient follow-up for ongoing evaluation and treatment of anemia, including completion of pending iron studies and GI workup as indicated. * Prevent thromboembolic events: Maintain strict adherence to anticoagulation (apixaban) and reinforce education on the importance of medication compliance. * Support recovery from alcohol use disorder: Encourage continued engagement with addiction medicine and support services, and maintain vitamin supplementation (thiamine, folic acid) to prevent complications of alcohol withdrawal. * Manage chronic pain and peripheral neuropathy: Continue multimodal pain management strategies, including gabapentin and physical therapy, to improve mobility and quality of life. * Monitor and manage cardiovascular risk factors: Continue antihypertensive and cardiac medications, and ensure regular follow-up for CAD and PVD. * Address social determinants of health: Facilitate stable housing and access to community resources, including STR placement and social work support. * Promote follow-up and continuity of care: Ensure timely outpatient appointments with primary care, vascular surgery, and gastroenterology for ongoing management of complex comorbidities. Health Concerns: Health Concerns * Recurrent and chronic anemia * Risk of gastrointestinal bleeding * History of alcohol use disorder and risk of relapse * Nonadherence to anticoagulation with risk of DVT/PE * Chronic peripheral vascular disease and limb ischemia * Chronic lower extremity pain and neuropathy * Coronary artery disease and cardiovascular risk * Hypertension * Homelessness and unstable social situation * Ongoing tobacco and marijuana use * Limited access to outpatient care and follow-up Plan of Treatment: Plan of Treatment * Resume and maintain apixaban for anticoagulation * Continue iron supplementation as indicated by iron studies * Maintain proton pump inhibitor therapy for GI protection * Continue thiamine and folic acid supplementation * Engage with addiction medicine and support services for alcohol use disorder * Continue gabapentin for neuropathic pain management * Maintain antihypertensive and cardiac medications (carvedilol, losartan) * Arrange outpatient follow-up with primary care, gastroenterology, and vascular surgery * Monitor CBC and relevant labs as outpatient * Encourage smoking cessation and reduction of marijuana use * Provide education on medication adherence and signs of bleeding or recurrence of symptoms Assessment: 54-year-old male with complex medical and social history admitted for acute on chronic microcytic anemia, likely secondary to chronic GI blood loss, in the context of alcohol use disorder, nonadherence to anticoagulation, and multiple comorbidities, now stabilized and ready for discharge with close outpatient follow-up.
--- NOTE | 2025-05-26 11:08 | W.MHC.F2F ---
Service Date Service Date: 05/26/25 Encounter Date of encounter: 05/26/25 Reasons for Services Signs and symptoms assessed: The patient reports persistent lower extremity pain, weakness, and limited mobility secondary to chronic peripheral vascular disease and neuropathy. He demonstrates difficulty with ambulation and activities of daily living, requiring the use of a cane/walker. On exam, there is decreased strength (4/5) in the lower extremities, mild pallor, and right lower leg coolness, but no acute vascular compromise. These ongoing symptoms necessitate skilled home physical therapy to improve functional status, mobility, and safety in the home environment. Reason for care home: medication management, medication treatment and teach disease management Reason for physical therapy: home safety and mobility, therapeutic exercises, restore joint function, gait/transfer training, assess need for DME, ADL training and energy conservation Reason for occupational therapy: home safety and mobility, therapeutic exercises, restore joint function, gait/transfer training, assess need for DME and ADL training Homebound: Leaving the home is medically contraindicated at this time without the asist of a device and/or another person due th the listed conditions above and below. Reason homebound: unsteady gait / fall risk, leg weakness, pain with ambulation and pain with transfers Certification: Based on the above findings, I certify that this patient is confined to the home and needs intermittent care home care, physical therapy and/or speech therapy, or continues to need occupational therapy. The patient is under my care, and I have initiated the establishment of the plan of care. The patient will be followed by a physician who will periodically review the plan of care. Time Spent With Patient Time: Total time managing care of this patient today 30 minutes.
[2025-05-26 11:20] VITALS: BP 135/87; PULSE 92; RESP 16; TEMP 36.4; O2SAT 99
--- NOTE | 2025-05-26 12:38 | MHC.RECOVRN ---
Late entry Patient had a positive screen for unhealthy alcohol use on admission, subsequently, met with this aligner typewriter to discuss alcohol use, recovery supports, and concerns related to increased risk of alcohol related problems.? Patient reports consuming 6-7 nips of fireball. He states he was abstinent from alcohol use for approximately 3 months during an admission to SNF for rehab after surgery. He reports returning to use due to ?boredom?.? Discussed how alcohol use has impacted health, including negative impact on mental health and overall physical well being.? Discussed risk and reduction strategies including drinking below the recommended limit.? Provided pt with written resources including information on inpatient and outpatient treatment, URI, harm reduction and recovery coaching. He was unwilling to further discuss recovery options or supports.? Pt declines intervention, URI, or outpatient appt for treatment related to AUD at this time and states ?I don?t plan on drinking when I leave?. Pt was provided with TW?s contact information if questions or concerns arise. Pt denies further questions or concerns at this time.
== END 2025-05-26 14:12 | disposition home health service (06) | DRG 812 ==
LOC: HO.ED 02:56 → HO.EDOVER 05:18 → HO.S3 19:53
PROVIDERS: Internal Medicine Gastroenterology; Nurse Practitioner Family; Admitting Provider Internal Medicine; Emergency Provider Emergency Medicine Emergency Medical Services; PCP Internal Medicine; Visit Provider Hospitalist
DX: D50.9 Iron deficiency anemia, unspecified (principal); Z59.02 Unsheltered homelessness; K22.10 Ulcer of esophagus without bleeding; I25.10 Atherosclerotic heart disease of native coronary artery without angina pectoris; F17.210 Nicotine dependence, cigarettes, uncomplicated; Z71.6 Tobacco abuse counseling; Z20.822 Contact with and (suspected) exposure to COVID-19; Y90.8 Blood alcohol level of 240 mg/100 ml or more; K22.2 Esophageal obstruction; Z95.5 Presence of coronary angioplasty implant and graft; K64.5 Perianal venous thrombosis; I73.9 Peripheral vascular disease, unspecified; G62.9 Polyneuropathy, unspecified; F10.10 Alcohol abuse, uncomplicated; K21.9 Gastro-esophageal reflux disease without esophagitis; Z86.718 Personal history of other venous thrombosis and embolism; Z86.711 Personal history of pulmonary embolism; Z91.148 Patient's other noncompliance with medication regimen for other reason; Z79.01 Long term (current) use of anticoagulants; Z79.899 Other long term (current) drug therapy
CPT/HCPCS: 36415; 71046; 74178; 80048; 80053; 80307; 82272; 82607; 82668; 83690; 84484; 85025; 85027; 85045; 85379; 85610; 85730; 86850; 86900; 86901; 86923; 87502; 87635; 93005; 93970; 97161; 99285; J2405; J2470; P9016; Q9967; S9485

== ENCOUNTER → 2025-05-24 01:02 | Outpatient (BNV) | payer MEDICARE, MEDICAID, SELFPAY | PROVIDERS: Admitting Provider Internal Medicine; Emergency Provider Emergency Medicine Emergency Medical Services; PCP Internal Medicine; Visit Provider Internal Medicine Cardiovascular Disease | DX: R07.9 Chest pain, unspecified (principal) | CPT/HCPCS: 93010 ==

== ENCOUNTER → 2025-05-24 01:02 | Outpatient (BNV) | payer MEDICARE, SELFPAY | PROVIDERS: Emergency Provider Emergency Medicine Emergency Medical Services; PCP Internal Medicine; Visit Provider Radiology Diagnostic Radiology | DX: D50.9 Iron deficiency anemia, unspecified (principal); M79.661 Pain in right lower leg; M79.662 Pain in left lower leg; R05.9 Cough, unspecified; R07.9 Chest pain, unspecified; R06.02 Shortness of breath | CPT/HCPCS: 71046; 74178; 93970 ==

== ENCOUNTER → 2025-05-24 05:12 | Outpatient (BNV) | payer MEDICARE, MEDICAID, SELFPAY | PROVIDERS: Admitting Provider Internal Medicine; Emergency Provider Emergency Medicine Emergency Medical Services; PCP Internal Medicine; Visit Provider Nurse Practitioner Psychiatric/Mental Health | DX: F10.90 Alcohol use, unspecified, uncomplicated (principal) | CPT/HCPCS: 99221 ==

== ENCOUNTER → 2025-05-24 05:12 | Outpatient (BNV) | payer MEDICARE, MEDICAID, SELFPAY | PROVIDERS: Admitting Provider Internal Medicine; Emergency Provider Emergency Medicine Emergency Medical Services; PCP Internal Medicine; Visit Provider Nurse Practitioner Family | DX: F10.90 Alcohol use, unspecified, uncomplicated (principal); D64.9 Anemia, unspecified | CPT/HCPCS: 99223 ==

== ENCOUNTER 2025-06-11 21:08 | Emergency (ER) | payer MEDICARE, MEDICAID, SELFPAY ==
[2025-06-11 21:11] VITALS: BP 142/76; PULSE 90; O2SAT 100
[2025-06-11 21:23] VITALS: BP 116/77; PULSE 91; RESP 16; TEMP 36.6; O2SAT 100; BMI 21.1
[2025-06-11 22:08] LABS: MANUAL DIFF FLAG NO
[2025-06-11 22:10] LABS: Hematocrit 34.7 % (42.0-52.0); Hemoglobin 10.3 g/dl (14.0-18.0); Imm Gran Abs Auto 0.02 X10*3/uL (0.00-0.03); Imm Gran Pct Auto 0.2 % (0.0-0.4); Lymphocytes Absolute Auto 3.8 X10*3/uL (1.2-4.9); Mean Corpuscular HGB Conc 29.7 g/dl (31.0-36.0); Mean Corpuscular Hemoglobin 24.3 pg (27.0-33.0); Mean Corpuscular Volume 81.8 fL (80.0-98.0); NRBC Abs Auto 0.000 X10*3/uL (0.0-0.012); NRBC Pct Auto 0.0 /100WBC (0.0-0.2); Platelet Count 412 X10*3/uL (160-400); Red Blood Count 4.24 X10*6/uL (4.60-5.80); White Blood Count 8.5 X10*3/uL (4.8-10.8)
[2025-06-11 22:12] LABS: Appearance Urine Clear; Glucose Urine UA Negative (Negative); PH 6.5 (5.0-9.0); Specific Gravity - Urine <= 1.005 (1.005-1.025); UMIC TRIGGER UACC YES
[2025-06-11 22:15] LABS: INTERNATIONAL NORM RATIO 1.0 (0.9-1.1); Prothrombin Time 11.8 SEC (10.9-12.4)
[2025-06-11 22:21] LABS: Cannabinoid Screen Urine Not Detected (Not Detect)
[2025-06-11 22:30] LABS: Anion Gap 16 (12-20); Blood Urea Nitrogen 10 mg/dL (9-16); Carbon Dioxide 23 mmol/L (22-29); Chloride 110 mmol/L (96-108); Potassium 4.3 mmol/L (3.3-5.1); Sodium 145 mmol/L (135-145)
[2025-06-11 22:31] LABS: Alanine Aminotransferase 22 U/L (0-40); Albumin Level 4.6 g/dL (3.5-5.0); Alkaline Phosphatase 89 U/L (39-117); Aspartate Amino Transferase 46 U/L (5-37); Calcium 9.1 mg/dL (8.4-10.2); Creatinine Clr Calc Pharmacy 58.5; Estimated Glomerular Filt Rate > 60; Magnesium 2.1 mg/dL (1.6-2.6); Total Protein 8.0 g/dL (6.5-8.0)
[2025-06-12 02:00] VITALS: RESP 18
--- NOTE | 2025-06-12 02:52 | ED.PSYCH ---
HPI - Psych General Chief Complaint: Extremity Problem Stated Complaint: Pain in both legs, etoh Time Seen by Provider: 06/11/25 22:43 Source: patient Mode of arrival: EMS Limitations: altered mental status (intoxication) History of Present Illness ED Provider: Dr. Alba Jurado HPI Narrative: 54-year-old male with a history of alcohol use disorder, DVT on Eliquis, peripheral vascular disease presenting with bilateral lower extremity pain ongoing for months, worsening over the last hour so. States that he has had to do a lot of walking which has made his pain worse. He currently is homeless. Admits he has been taking all of his medications as prescribed including Eliquis and aspirin. Denies chest pain or difficulty breathing. No weakness in his legs. No fever, cough or cold-type symptoms. No nausea or vomiting, bowel changes or urinary complaints. He admits to alcohol use, drinks about 5 nips of fireball every day. Denies illicit substance use. Denies marijuana use. Last drink was immediately prior to arrival in the emergency department. When prompted that he may go home after pain medications today, patient states ?I do not know what will happen when I get out there. I could her you, I could hurt myself, I do not know. I do not have anywhere to go?. Related Data Home Medications ?Medication ?Instructions ?Recorded ?Confirmed acetaminophen 500 mg tablet 1,000 mg PO TID PRN moderate pain 02/20/25 05/24/25 carvedilol 6.25 mg tablet 6.25 mg PO BID 02/20/25 05/24/25 cyanocobalamin (vitamin B-12) 1,000 mcg PO DAILY 02/20/25 05/24/25 1,000 mcg tablet folic acid 1 mg tablet 1 mg PO DAILY 02/20/25 05/24/25 gabapentin 600 mg tablet 600 mg PO TID 02/20/25 05/24/25 losartan 25 mg tablet 25 mg PO DAILY 02/20/25 05/24/25 pyridoxine (vitamin B6) 50 mg 50 mg PO DAILY 02/20/25 05/24/25 tablet thiamine HCl (vitamin B1) 100 mg 100 mg PO BID 02/20/25 05/24/25 tablet trazodone 100 mg tablet 100 mg PO BEDTIME 02/20/25 05/24/25 venlafaxine 75 mg capsule,extended 75 mg PO DAILY 02/20/25 05/24/25 release 24 hr Previous Rx's ?Medication ?Instructions ?Recorded omeprazole 40 mg capsule,delayed 40 mg PO BID@0630,1630 #0 caps 02/24/25 release magnesium oxide 400 mg (241.3 mg 400 mg PO DAILY #90 tabs 03/12/25 magnesium) tablet phenylephrine 0.25 %-mineral oil [address] BID PRN hemorrhoids #28 03/12/25 14 %-petrolatm 74.9 % rectal grams ointment (Preparation H) apixaban 5 mg tablet (Eliquis) 5 mg PO BID 30 days #60 tabs 05/26/25 Allergies Allergy/AdvReac Type Severity Reaction Status Date / Time No Known Allergies Allergy Verified 06/11/25 21:28 [facility] Past Medical History Medical History CVA (cerebral vascular accident) PVD (peripheral vascular disease) Laceration of foot, right Chronic pain of both lower extremities Microcytic anemia Pulmonary embolism History of recurrent deep vein thrombosis (DVT) History of thrombolytic therapy Fall at home On continuous oral anticoagulation Atherosclerotic cardiovascular disease Surgical History History of colonoscopy with polypectomy Social History Social History Household Members: Children Housing: Apartment Are you a primary memory care program resident to a significant other at home: No Do you presently have visiting nurse or other home services: No Alcohol intake: current Alcohol intake frequency: a few times a month Alcohol type: beer and hard liquor Patient Tobacco Use Status: Current someday Tobacco user Tobacco use type: Cigarette Cigarettes Per Day: 4 Years Smoked: 40 years Smoked in Last 30 Days: Yes e-Cigarette/Vaping Use: Never Used Second Hand Smoke Exposure: No Substance Use Type: Marijuana Advance Directives: Yes Advance Directives on File: Yes Advance Directives Date on File: 03/09/25 service: No Physical Exam Vital Signs: Vital Signs: Last Vital Signs Temp 98.2 F 06/12/25 08:37 Pulse 92 06/12/25 08:37 Resp 18 06/12/25 08:37 BP 111/75 06/12/25 08:37 Pulse Ox 98 06/12/25 08:37 O2 Del Method Room Air 06/12/25 08:37 BMI result Body Mass Index 21.1 Medications Administered Discontinued Medications Generic Name Dose Route Start Last Admin Trade Name Carlos PRN Reason Stop Dose Admin Acetaminophen 975 mg 06/11/25 23:54 06/12/25 00:07 Acetaminophen 325 Mg Tablet PO 06/11/25 23:55 975 mg ONCE ONE Administration Diazepam 5 mg 06/11/25 23:54 06/12/25 00:07 Diazepam 5 Mg Tablet PO 06/11/25 23:55 5 mg ONCE ONE Administration Gabapentin 300 mg 06/11/25 23:54 06/12/25 00:07 Gabapentin 300 Mg Capsule PO 06/11/25 23:55 300 mg ONCE ONE Administration Medical Decision Making Medical Decision Making [facility] Narrative: Patient presents with psychologic complaints. Differential diagnosis includes suicidal ideations, homicidal ideations, depression, anxiety, mood disorder, decompensated mental illnesses such as schizophrenia or bipolar disorder, medication noncompliance, alcohol use disorder, intoxication, housing insecurity, malingering, among many others. Medical clearance protocol was initiated. Patient has an extensive history including DVT and PE however, has had recent hospitalization which showed no new emergent pathology. He is hemodynamically stable here in the emergency department, has no shortness of breath or chest pain. He is afebrile. Very low suspicion for acute DVT or PE today. He is endorsing passive suicidal and homicidal ideations though. I suspect this is in part malingering however, we will have crisis evaluate him to be sure. 7:17 AM 06/12/2025 (Dr. Alba Jurado, D.O.) patient now reporting that he is no longer feeling suicidal or homicidal. States he really needed a place to stay last night. Requesting discharge at this time. He is clinically sober with clear speech, steady gait, mentating appropriately with normal vital signs. Stable for discharge. Provided with resources for alcohol detox and homeless shelters. Differential Diagnosis Differential Diagnoses: The differential diagnosis associated with the presentation includes (As above) Admission/Observation Consideration of admission/observation: Escalation of care including admission/observation considered Lab Data [facility] Lab Attestation statement: I reviewed the patient's lab results. 06/11/25 22:02 06/11/25 22:02 Labs: Lab Results 06/11/25 Range/Units 22:02 WBC 8.5 (4.8-10.8) X10*3/uL RBC 4.24 L D (4.60-5.80) X10*6/uL Hgb 10.3 L D (14.0-18.0) g/dl Hct 34.7 L D (42.0-52.0) % MCV 81.8 (80.0-98.0) fL MCH 24.3 L (27.0-33.0) pg MCHC 29.7 L (31.0-36.0) g/dl RDW 23.0 H (11.0-16.0) % Plt Count 412 H D (160-400) X10*3/uL MPV 9.6 (9.4-12.4) fL Immature Gran % (Auto) 0.2 (0.0-0.4) % Neut % (Auto) 41.3 L (45-73) % Lymph % (Auto) 44.1 H (20-40) % Mitchell % (Auto) 9.9 (2-11) % Eos % (Auto) 2.9 (0-4) % Baso % (Auto) 1.6 (0-2) % Lymph # (Auto) 3.8 (1.2-4.9) X10*3/uL Mitchell # (Auto) 0.8 (0.1-1.2) X10*3/uL Eos # (Auto) 0.3 (0.0-0.4) X10*3/uL Baso # (Auto) 0.1 (0.0-0.2) X10*3/uL Abs Immat Gran (auto) 0.02 (0.00-0.03) X10*3/uL Absolute Neuts (auto) 3.5 (2.0-8.3) x10*3/uL Absolute Nucleated RBC 0.000 (0.0-0.012) X10*3/uL Nucleated RBC % (auto) 0.0 (0.0-0.2) /100WBC PT 11.8 (10.9-12.4) SEC INR 1.0 (0.9-1.1) Sodium 145 (135-145) mmol/L Potassium 4.3 (3.3-5.1) mmol/L Chloride 110 H (96-108) mmol/L Carbon Dioxide 23 (22-29) mmol/L Anion Gap 16 (12-20) BUN 10 (9-16) mg/dL Creatinine 1.25 (0.5-1.4) mg/dL Estim Creat Clear Calc 58.5 Estimated GFR > 60 Random Glucose 87 (60-115) mg/dL Calcium 9.1 (8.4-10.2) mg/dL Magnesium 2.1 (1.6-2.6) mg/dL Total Bilirubin 0.1 (0.0-1.0) mg/dL AST 46 H (5-37) U/L ALT 22 (0-40) U/L Alkaline Phosphatase 89 (39-117) U/L Total Protein 8.0 (6.5-8.0) g/dL Albumin 4.6 (3.5-5.0) g/dL Urine Color Yellow Urine Appearance Clear Urine pH 6.5 (5.0-9.0) Ur Specific Vance <= 1.005 (1.005-1.025) Urine Protein Negative (Neg-Trace) mg/dL Urine Glucose (UA) Negative (Negative) mg/dL Urine Ketones Negative (Negative) mg/dL Urine Blood Negative (Negative) Urine Nitrite Negative (Negative) Ur Leukocyte Esterase Trace H (Negative) Urine RBC 0-2 (0-2) /HPF Urine WBC 0-5 (0-5) /HPF Ur Squamous Epith Cells 0-2 (0-2) /HPF Urine Bacteria None Seen (None Seen) Hyaline Casts 0-2 (0-2) /LPF Urine Opiates Screen Not Detected (Not Detect) Ur Buprenorphine Scrn Not Detected (Not Detect) ng/mL Ur Oxycodone Screen Not Detected (Not Detect) ng/mL Urine Methadone Screen Not Detected (Not Detect) ng/mL Urine Fentanyl Screen Not Detected (Not Detect) Ur Barbiturates Screen POSITIVE H (Not Detect) Ur Phencyclidine Scrn Not Detected (Not Detect) Ur Amphetamines Screen Not Detected (Not Detect) U Benzodiazepines Scrn Not Detected (Not Detect) Urine Cocaine Screen Not Detected (Not Detect) U Marijuana (THC) Screen Not Detected (Not Detect) Ethyl Alcohol 323 H* mg/dL Radiology Impression Discussion of test interpretation with radiology: I have reviewed the radiologist's reading. Independent Historian Clinical information obtained from an independent historian. History obtained from or confirmed by: EMS External Record Review External record reviewed: Inpatient record Chronic Conditions Patient?s care impacted by: Other (DVT, ASCVD, PVD, alcohol use disorder) Social Determinants Patient?s care significantly limited by Social Determinants of Health including: Inadequate housing, Problems related to primary support group and Other Social Determinant of Health Discharge Plan Discharge Clinical Impression: Alcohol intoxication, Housing insecurity, Chronic pain of lower extremity, bilateral, Protein malnutrition Patient Disposition: Home, Self-Care Instructions: High Protein Diet (ED), Leg Cramps (ED) Additional Instructions: Alcohol use disorder You were seen in the Emergency Department today for treatment of alcohol use disorder.? You may have been given medications to help with your withdrawal symptoms.? Please do not drink alcohol with them. This is very dangerous and can cause respiratory depression or other adverse reactions depending on the medication. If you would like to cut down or stop your alcohol use please consider calling our outpatient Addiction Treatment office:? [facility] (-[id number]) [address] [place] [address] You have also been given a list of treatment providers in the area that can assist as well.? If you experience seizures, vomiting blood, black stools, falls, severe headache, chest pain, fevers, trouble breathing, hallucinations or any other concerns you need to call 911 or seek immediate care. Please stay hydrated. Prescriptions: No Action magnesium oxide 400 mg (241.3 mg magnesium) tablet 400 mg PO DAILY Qty: 90 0RF Rx Instructions: Take on tablet daily. Preparation H 0.25-14-74.9 % ointment [address] BID PRN (Reason: hemorrhoids) Qty: 28 0RF Rx Instructions: Apply to hemorrhoids twice a day as needed carvedilol 6.25 mg tablet 6.25 mg PO BID venlafaxine 75 mg capsule,extended release 24hr 75 mg PO DAILY gabapentin 600 mg tablet 600 mg PO TID trazodone 100 mg tablet 100 mg PO BEDTIME losartan 25 mg tablet 25 mg PO DAILY thiamine HCl (vitamin B1) 100 mg tablet 100 mg PO BID folic acid 1 mg tablet 1 mg PO DAILY cyanocobalamin (vitamin B-12) 1,000 mcg tablet 1,000 mcg PO DAILY acetaminophen 500 mg tablet 1,000 mg PO TID PRN (Reason: moderate pain) pyridoxine (vitamin B6) 50 mg tablet 50 mg PO DAILY omeprazole 40 mg Capsule,Delayed Release(Dr/Ec) 40 mg PO BID@0630,1630 Qty: 0 0RF Eliquis 5 mg Tablet 5 mg PO BID 30 Days Qty: 60 0RF Interventions: ED Discharge Assessment Last Done: 06/12/25 08:37 Discharge Date/Time: 06/12/25 08:37 Print Language: Latvian
[2025-06-12 04:37] VITALS: BP 111/75; PULSE 92; RESP 18; TEMP 36.8; O2SAT 98
[2025-06-12 08:37] VITALS: BP 111/75; PULSE 92; RESP 18; TEMP 36.8; O2SAT 98
== END 2025-06-12 08:37 | disposition home or self-care (01) ==
PROVIDERS: Emergency Provider Emergency Medicine
DX: F10.129 Alcohol abuse with intoxication, unspecified (principal); M79.605 Pain in left leg; M79.604 Pain in right leg; E46 Unspecified protein-calorie malnutrition; Z86.718 Personal history of other venous thrombosis and embolism; Y90.8 Blood alcohol level of 240 mg/100 ml or more; Z79.01 Long term (current) use of anticoagulants; Z79.899 Other long term (current) drug therapy; Z59.10 Inadequate housing, unspecified
CPT/HCPCS: 36415; 80053; 80307; 81001; 83735; 85025; 85610; 99283; 99285